=== PATIENT | male | born 1945 | race Caucasian/White ===

== ENCOUNTER 2017-05-26 12:30 | Observation (INO) | payer OTHER, MEDICARE ==
[~2017-05-26] VITALS: Ht 188 cm; Wt 77.1 kg
[~2017-05-26 12:30] MED LIST: ASPIRIN LOW DOS81 M1 PO; ASPIRIN81 M4 PO; ATHENOL325 MG PO; BACLOFEN20 M1 PO; BACLOFEN20 MG PO; COZAAR 100MG T100 MG PO; COZAAR100 M1 PO; ELIQUIS2.5 M1 PO; Eliquis PO; FLOMAX(MONOGRA0.4 MG PO; FLOMAX0.4 M1 PO; LABETALOL HCL100 M1 PO; LABETALOL HYDR100 MG PO; LABETALOL PO; LIPITOR80 M1 PO; Lipitor PO; METHOTREXA50 MG/2 ML PO; METHOTREXATE2.5 M2 PO; NORVASC10 M1 PO; NORVASC5 M1 PO; TRAZODONE HCL150 M1 PO; [UNRECOGNIZED DRUG - OTHER] PO
--- NOTE | 2017-05-26 12:39 | NUR ---
PT TO ROOM7 BIBA FROM HOME FOR EPISODE OF UNRESPONSIVNESS 15MIN WITNESSED BY HIS . ON [facility] ARRIVAL PT WAS AWAKE, HYPOTENSIVE 96/54, BG 280. ON ARRIVAL TO ER PT AAOx2, VSS, OFFERING NO COMPLAINTS. EKG -NSR 60'S. HX OF CVA WITH R SIDDED DEFICIT, HTN,AORTIC VALVE REPLACEMENT,CHOL.
[2017-05-26] MEDS ORDERED: AMLODIPINE BESYL5 M1 PO (12:44)
--- NOTE | 2017-05-26 12:50 | ED AMS/SEIZURE/WEAK/DIZZY ---
History of Present Illness General Chief Complaint: General Adult Stated Complaint: BIBA WEAKNESS Source: patient, family, old records Exam Limitations: no limitations Vital Signs & Intake/Output Vital Signs & Intake/Output Vital Signs Date Time Temp Pulse Resp B/P B/P Pulse O2 O2 Flow FiO2 Mean Ox Delivery Rate 05/26 1744 97.9 59 20 168/98 93 Room Air 05/26 1625 97.7 74 16 159/75 05/26 1508 97.0 71 16 134/74 95 Room Air 05/26 1259 95 Room Air 05/26 1237 97.1 60 18 108/62 95 Room Air Allergies Coded Allergies: NO KNOWN ALLERGIES (02/27/16) Reconcile Medications Acetaminophen (Athenol) 325 MG TABLET 2 TAB PO BID PAIN (Reported) Amlodipine Besylate 5 MG TABLET 1 TAB PO DAILY HTN (Reported) Apixaban (Eliquis) 2.5 MG TABLET 1 TAB PO BID BLOOD THINNER (Reported) Aspirin (Aspirin*) 81 MG TAB.CHEW 1 TAB PO DAILY HEART/BLOOD (Reported) Atorvastatin Calcium (Lipitor) 80 MG TABLET 1 TAB PO QPM CHOLESTEROL ( Reported) Baclofen 20 MG TABLET 1 TAB PO TID MUSCLE SPASMS (Reported) Labetalol HCl 100 MG TABLET 1 TAB PO BID HTN (Reported) Losartan (Cozaar) 100 MG TABLET 1 TAB PO DAILY HTN (Reported) Methotrexate 2.5 MG TABLET 3 TAB PO QWED MS (Reported) Tamsulosin HCl (Flomax) 0.4 MG CAP.ER.24H 1 CAP PO DAILY PROSTATE (Reported) Trazodone HCl 150 MG TABLET 1 TAB PO QPM SLEEP (Reported) Triage Note: PT TO ROOM7 BIBA FROM HOME FOR EPISODE OF UNRESPONSIVNESS 15MIN WITNESSED BY HIS . ON [facility] ARRIVAL PT WAS AWAKE, HYPOTENSIVE 96/54, BG 280. ON ARRIVAL TO ER PT AAOx2, VSS, OFFERING NO COMPLAINTS. EKG -NSR 60'S. HX OF CVA WITH R SIDDED DEFICIT, HTN,AORTIC VALVE REPLACEMENT,CHOL. Triage Nurses Notes Reviewed? yes Onset: Abrupt Duration: hour(s): (1), better, gone now Timing: single episode today Injury Environment: home Severity: mild, moderate No Modifying Factors: none HPI: 72-year-old male with a history of CVA, multiple sclerosis, DVT on, aortic valve replacement and hypertension presents for evaluation after an episode of unresponsiveness. Patient's reports that patient was sitting at a wheelchair when all of a sudden he began breathing heavy, drooling, and nasal discharge. reports that she repeatedly tried to arouse the patient but he remained unresponsive for 15 minutes. She called 911 and EMS reports that patient was also unresponsive for another 15 minutes. His blood pressure was 96 /50 but he is breathing normally blood sugar was normal. The Patient Got to the ER He Was Awake and Responsive and Not Offering Any Complaints. He Reports He Feels Totally Normal. Patient Has Right-Sided Weakness from a CVA at Baseline and Feels As Though This Is Unchanged. reports he has been behaving normally and his right-sided weakness appears unchanged. Patient denies any chest pain, shortness of breath, abdominal pain, headaches, changes in vision, fatigue, worsening weakness, previous similar episodes, new medications, fevers, or any other associated symptoms. he currently reports he feels well. (AARON ALEXANDER PA-C) Past History Travel History Traveled to [place] past 21 day No Medical History Neurological: CVA, multiple sclerosis EENT: NONE Cardiovascular: hypertension, paroxysmal aflutter AVR 2010 Respiratory: NONE Gastrointestinal: NONE Hepatic: NONE Renal: benign prost hyperplasia Musculoskeletal: NONE Psychiatric: NONE Endocrine: NONE Blood Disorders: DVT ON ELIQUIS Cancer(s): NONE PAEDIATRICIAN/Reproductive: NONE History of MRSA: No History of VRE: No History of CDIFF: No Surgical History Surgical History: aortic valve replacement 2009 Psychosocial History Who do you live with [address]10 What is your primary language Hungarian Tobacco Use: Never used Family History Family History, If Any: FATHER Valvular heart disease Relation not specified for: *No pertinent family history (AARON ALEXANDER PA-C) Medical History Any Pertinent Medical History? see below for history Family History Hx Contributory? No (MARIA DEL CARMEN MARIE DO) Review of Systems Review of Systems Constitutional: Reports: no symptoms. EENTM: Reports: no symptoms. Respiratory: Reports: no symptoms. Cardiovascular: Reports: no symptoms. GI: Reports: no symptoms. Genitourinary: Reports: no symptoms. Musculoskeletal: Reports: no symptoms. Skin: Reports: no symptoms. Neurological/Psychological: Reports: no symptoms. Hematologic/Endocrine: Reports: no symptoms. Immunologic/Allergic: Reports: no symptoms. All Other Systems: Reviewed and Negative (AARON ALEXANDER PA-C) Physical Exam Physical Exam General Appearance: well developed/nourished, no apparent distress, alert, awake , comfortable Head: atraumatic, normal appearance Eyes: Bilateral: normal appearance, PERRL, EOMI. Ears, Nose, Throat: normal pharynx, normal ENT inspection, hearing grossly normal Neck: normal inspection, supple, full range of motion Respiratory: normal breath sounds, chest non-tender, no respiratory distress, lungs clear Cardiovascular: regular rate/rhythm, normal peripheral pulses Peripheral Pulses: 2+ dorsalis pedis (R), 2+ dorsalis pedis (L) Gastrointestinal: normal bowel sounds, soft, non-tender Back: normal inspection, normal range of motion, no vertebral tenderness Extremities: limited range of motion (RT UPPER AND LOWER AT BASELINE) Neurologic/Psych: awake, alert, oriented x 3, normal mood/affect, abnormal gait (RT HEMIPARESIS), motor weakness (RIGHT SIDE BASELINE) Reflexes: 2+: knee (R), knee (L). Skin: intact, normal color, warm/dry Lymphatic: no anterior cervical ryley Comments: Patient has right-sided hemiparesis at baseline. This is unchanged since the events of today. Core Measures ACS in differential dx? Yes ASA ordered for poss ACS? No-ACS ruled out CVA/TIA Diagnosis: No NIH Stroke Scale: Total 7 Date Last Known Well: 05/26/17 Time Last Known Well: 1200 Neurological S/S of CVA: Right Hemiparesis (baseline) Comment: Patient has right sided weakness at baseline due to previous CVA. This does not appear to be worse than his baseline. Severe Sepsis Present: No Septic Shock Present: No Bedside Dysphagia Screen Bedside Swallow Eval Done: Yes (pt has a gag reflex) Result of Evaluation: Pass (CATHERINE JACOME,AARON) Progress Differential Diagnosis: arrythmia, anemia, benign positional vertigo, CVA/stroke , dehydration, electrolyte imbalance, hypoglycemia, intracranial Hem., intracranial mass/tumor, labrynthitis, Meniere's disease, postural hypotension, presyncope, post-traumatic vertigo, sepsis, seizure disorder, subarachnoid Hem., vertebrobasilar insuff, AORTIC VALVE INSUFFICIENCY, AORTIC STENOSIS Plan of Care: Orders Procedure Date/time Status MRI-HEAD W & W/O AARON 05/27 600 Active CBC WITHOUT DIFFERENTIAL 06/26 0600 Active BASIC ELECTROLYTES PLUS BUN&CR 05/27 0600 Active TROPONIN LEVEL 05/27 0100 Active EKG 05/27 0100 Active Heart Healthy Diet 05/26 D Active TROPONIN LEVEL 05/26 1900 Active EKG 05/26 1900 Active LACTIC ACID 05/26 1547 Complete Pathway - chart 05/26 1536 Active House Staff 05/26 1536 Active Patient Data 05/26 1536 Active Code Status 05/26 1536 Active Patient Data 05/[address] in observation 05/26 1517 Active ED Holding Orders 05/26 1517 Active Vital Signs 05/26 1517 Active Code Status 05/26 1517 Complete Intake & Output 05/26 1319 Active Add-on Test (ER Only) 05/26 1303 Active Telemetry/Community Development Specialist 05/26 1302 Active URINALYSIS 05/26 1302 Active MAGNESIUM 05/26 1257 Complete D-DIMER 05/26 1257 Complete CREATINE PHOSPHOKINASE 05/26 1257 Complete B-TYPE NATRIURETIC PEP (BNP) 05/26 1257 Complete TROPONIN LEVEL 05/26 1247 Complete PARTIAL THROMBOPLASTIN TIME 05/26 1247 Complete PROTHROMBIN TIME 05/26 1247 Complete LACTIC ACID 05/26 1247 Complete COMPREHENSIVE METABOLIC PANEL 05/26 1247 Complete CBC WITHOUT DIFFERENTIAL 05/26 1247 Complete EKG 05/26 1232 Active VTE Mechanical Prophylaxis 05/26 UNK Active Telemetry/Community Development Specialist 05/26 UNK Active Current Medications Sig/Victor M Start time Last Medication Dose Stop Time Status Admin Methotrexate 7.5 MG QWED 05/29 0700 AC (Methotrexate 2.5MG Tab) Amlodipine Besylate 5 MG DAILY 05/27 1000 AC (Norvasc) Aspirin 81 MG DAILY 05/27 1000 AC (Aspirin) Losartan Potassium 100 MG DAILY 05/27 1000 AC (Cozaar) Tamsulosin HCl 0.4 MG DAILY 05/27 1000 AC (Flomax) Apixaban 2.5 MG BID 05/26 220 AC (Eliquis) Atorvastatin Calcium 80 MG QPM 05/26 2200 AC (Lipitor) Baclofen 20 MG TID 05/26 2200 AC (Lioresal 10MG Tablet) Labetalol HCl 100 MG BID 05/26 2200 AC (Trandate) Trazodone HCl 150 MG TID 05/26 2200 UNVr (Desyrel) Acetaminophen 325 MG Q6P PRN 05/26 1545 AC (Tylenol) Morphine Sulfate 1 MG Q4 PRN 05/26 1545 AC (Morphine) Oxycodone HCl 5 MG Q6 PRN 05/26 1545 AC (Roxicodone) Laboratory Tests 05/26/17 1902: Troponin I Pending 05/26/17 1505: Lactic Acid 1.6 05/26/17 1303: Magnesium Cancelled, Creatine Kinase Cancelled, [id number]-Z-[id number] Pept Cancelled , D-Dimer High Sensitivty Cancelled 05/26/17 1257: Anion Gap 10, Estimated GFR > 60, BUN/Creatinine Ratio 18.8, Glucose 197 H, Lactic Acid 2.5 H, Calcium 9.0, Magnesium 2.0, Total Bilirubin 0.8, AST 17, ALT 23, Alkaline Phosphatase 37, Creatine Kinase 111, Troponin I < 0.01, Pro-B- Natriuretic Pept 1350 H, Total Protein 6.5, Albumin 3.7, Globulin 2.8, Albumin/ Globulin Ratio 1.3, PT 13.6 H, INR 1.30 H, APTT 32, D-Dimer High Sensitivty < 200, CBC w Diff NO MAN DIFF REQ, RBC 4.22 L, MCV 99.0 H, MCH 32.9 H, RDW 13.2 , MPV 8.2, Gran % 79.1 H, Lymphocytes % 9.0 L, Monocytes % 9.6 H, Eosinophils % 1.7, Basophils % 0.6, Absolute Granulocytes 7.4 H, Absolute Lymphocytes 0.8 L, Absolute Monocytes 0.9 H, Absolute Eosinophils 0.2, Absolute Basophils 0.1, PUBS MCHC 33.2 1:32 PM: Patient will be evaluated for possible syncopal episode where he was unresponsive for 15-30 minutes. We'll get basic blood work including troponin and BNP d-dimer. Chest x-ray and a CT scan of the brain. 2:47 PM: Lactic acid was elevated to 2.5. he was given a 250 mL normal saline bolus and lactic acid and rechecked. CT scan of brain is within normal limits. Remaining blood work is unchanged from previous. Due to possible syncopal event with unresponsiveness and the patient's history regarding further inpatient observation for further evaluation. He'll require cardiology consultation, telemetry monitoring, serial labs, echocardiogram, MRI of the brain. Talked with Dr. Gross who is the on-call community outreach coordinator and he will consult while he was admitted. We'll page the hospitalist to bring patient in for an observation period (AARON ALEXANDER PA-C) Diagnostic Imaging: Viewed by Me: Radiology Read, CT Scan. Initial ED EKG: SINUS RHYTHM, MULTIPLE PREMATURE COMP[LEXES VENTRICULAR AND SUPRAVENT, LEFT ATRIAL ABN Comments: PATIENT: ABELINO BRADLEY PRESENT AGE: 72 PATIENT ACCOUNT NO: [id number] : 43 LOCATION: [facility] ORDERING PHYSICIAN: AARON ALEXANDER PA-C SERVICE DATE: 05/26/17 EXAM TYPE: CAT - CT HEAD WO IV CONTRAST EXAMINATION: CT HEAD WITHOUT CONTRAST CLINICAL INFORMATION: Syncope. Unresponsive for 30 minutes. COMPARISON: Previous PET/CT scan most recent August 2016 TECHNIQUE: Contiguous axial imaging was performed from the skull base to vertex without intravenous administration of contrast. DLP: 803 mGy-cm FINDINGS: There is no evidence of an extra-axial collection. There is no evidence of intra or extra-axial hemorrhage. The ventricles and extra-axial CSF spaces are prominent suggestive of generalized atrophy. There is nonspecific periventricular white matter disease. There is an old right occipital parietal infarct that is unchanged. There may be old small basal ganglial and right cerebellar infarcts are also unchanged. No mass, mass effect or acute infarct is seen. Review of bone windows is unremarkable. IMPRESSION: No acute findings. Old right occipital parietal infarct, mild generalized atrophy and periventricular white matter disease. DICTATED BY: MARTIN MCCALL MD DATE/TIME DICTATED:05/26/171328 MOTION PICTURE FILM EXAMINER:FRANCO DATE/TIME TRANSCRIBED:05/26/171328 CONFIDENTIAL, DO NOT COPY WITHOUT APPROPRIATE AUTHORIZATION. <Electronically signed in Other Vendor System> SIGNED BY: MARTIN MCCALL MD. PATIENT: ABELINO BRADLEY PRESENT AGE: 72 PATIENT ACCOUNT NO: [id number] : 43 LOCATION: [facility] ORDERING PHYSICIAN: AARON ALEXANDER PA-C SERVICE DATE: 05/26/17 EXAM TYPE: RAD - XRY-PORTABLE CHEST XRAY EXAMINATION: CHEST 1 VIEW CLINICAL INFORMATION: Syncope. COMPARISON: 05/06/2016. TECHNIQUE: An AP view of the chest is provided. FINDINGS: The cardiac silhouette is not enlarged. Intact midline sternal wires are present. The mediastinal and hilar contours are unremarkable. There are neither pleural effusions nor pneumothoraces. There are no consolidations. The osseous structures are unremarkable. IMPRESSION: No evidence for acute disease. DICTATED BY: PHILIPPE ALLEN MD DATE/TIME DICTATED:05/26/171333 MOTION PICTURE FILM EXAMINER:FRANCO DATE/TIME TRANSCRIBED:05/26/171333 CONFIDENTIAL, DO NOT COPY WITHOUT APPROPRIATE AUTHORIZATION. <Electronically signed in Other Vendor System> SIGNED BY: PHILIPPE ALLEN MD 05/26/17 1342 (AARON ALEXANDER PA-C) Departure Departure Disposition: STILL A PATIENT Condition: Stable Clinical Impression Primary Impression: Syncope Qualifiers: Syncope type: unspecified Qualified Code: R55 - Syncope and collapse Referrals: LYNETTE CUTLER MD (PCP/Family) Departure Forms: Customer Survey General Discharge Information Admission Note Spoke With: CLIFF JACINTO MD Documentation of Exam: Documentation of any treatments & extenuating circumstances including Concerns Regarding Discharge (functional status, medication knowledge or non-compliance, living conditions, etc.) that warrant an admission rather than observation: [ Patient requires further evaluation of a syncopal event. He will require telemetry monitoring, echocardiogram, cardiology consult, serial labs, MRI of the brain, physical therapy consult, gentle hydration, neurology consult, and monitoring for any additional events. (AARON ALEXANDER PA-C) Observation Note Spoke With: CLIFF JACINTO MD Physician Advisor Notified: MARIA DEL CARMEN MARIE DO Place Patient In: Non-ED OBS Care Area Rationale for Observation: My rational for observation is as follows [PATIENT NEEDS SERIAL TROPONINS, CARDIOLOGY CONSULT, MRI]. PA/BANKING CONSULTANT Co-Sign Statement Statement: ED Attending supervision documentation- [X] I saw and evaluated the patient. I have also reviewed all the pertinent lab results and diagnostic results. I agree with the findings and the plan of care as documented in the PA's/BANKING CONSULTANT's documentation. [] I have reviewed the ED Record and agree with the PA's/BANKING CONSULTANT's documentation. [] Additions or exceptions (if any) to the PAs/BANKING CONSULTANT's note and plan are summarized below: [] (MARIA DEL CARMEN MARIE DO)
--- NOTE | 2017-05-26 12:55 | NUR ---
YULIANA ALEXANDER AT BEDSIDE FOR PT EVAL.
--- NOTE | 2017-05-26 12:58 | NUR ---
BLOOD DRAWN AND SENT TO LAB-SST,LAV,BLUE,[facility],PINK
[2017-05-26 13:13] LABS: ABSOLUTE BASOPHIL COUNT 0.1 /CUMM (0.0-0.2); ABSOLUTE EOSINOPHIL COUNT 0.2 /CUMM (0.0-0.7); ABSOLUTE GRANULOCYTE CT 7.4 /CUMM (1.4-6.5); ABSOLUTE LYMPH COUNT 0.8 /CUMM (1.2-3.4); ABSOLUTE MONOCYTE COUNT 0.9 /CUMM (0.10-0.60); BASOPHIL % 0.6 % (0.0-2.0); EOSINOPHIL % 1.7 % (0-5); GRANULOCYTE % 79.1 % (42.2-75.2); HEMATOCRIT 41.8 % (42-52); MEAN CORPUSCULAR HGB 32.9 PG (27.0-31.0); MEAN CORPUSCULAR HGB CONC 33.2 G/DL (33.0-37.0); MEAN PLATELET VOLUME 8.2 FL (7.4-10.4); PLATELET COUNT 257 /CUMM (130-400); RBC DISTRIBUTION WIDTH 13.2 % (11.5-14.5); RED BLOOD CELL CT 4.22 /CUMM (4.70-6.10); WHITE BLOOD CELL COUNT 9.4 /CUMM (4.8-10.8)
--- NOTE | 2017-05-26 13:19 | NUR ---
PT TO AND FROM CAT SCAN BY STRETCHER.
[2017-05-26 13:22] LABS: PT 13.6 SEC (9.4-12.5); PTT 32 SEC (25-37)
--- NOTE | 2017-05-26 13:36 | NUR ---
CRITICAL TEST RESULTS [id number] ABELINO BRADLEY 72 M TESTS AND RESULTS: LACTIC ACID 2.5 Results received and read back by: UCHE BLACKMON Results received date and time: 05/26/17 1337 The following provider was notified of the results, and read the results back: YULIANA ALEXANDER Notified date and time: 05/26/17 at 1337
--- NOTE | 2017-05-26 13:37 | CT SCAN REPORT ---
EXAMINATION: CT HEAD WITHOUT CONTRAST CLINICAL INFORMATION: Syncope. Unresponsive for 30 minutes. COMPARISON: Previous PET/CT scan most recent August 2016 TECHNIQUE: Contiguous axial imaging was performed from the skull base to vertex without intravenous administration of contrast. DLP: 803 mGy-cm FINDINGS: There is no evidence of an extra-axial collection. There is no evidence of intra or extra-axial hemorrhage. The ventricles and extra-axial CSF spaces are prominent suggestive of generalized atrophy. There is nonspecific periventricular white matter disease. There is an old right occipital parietal infarct that is unchanged. There may be old small basal ganglial and right cerebellar infarcts are also unchanged. No mass, mass effect or acute infarct is seen. Review of bone windows is unremarkable. IMPRESSION: No acute findings. Old right occipital parietal infarct, mild generalized atrophy and periventricular white matter disease.
--- NOTE | 2017-05-26 13:41 | NUR ---
JUANITA [phone] PLEASE CALL WHEN PT NEEDS RIDE HOME
--- NOTE | 2017-05-26 13:42 | RADIOLOGY REPORT ---
EXAMINATION: CHEST 1 VIEW CLINICAL INFORMATION: Syncope. COMPARISON: 05/06/2016. TECHNIQUE: An AP view of the chest is provided. FINDINGS: The cardiac silhouette is not enlarged. Intact midline sternal wires are present. The mediastinal and hilar contours are unremarkable. There are neither pleural effusions nor pneumothoraces. There are no consolidations. The osseous structures are unremarkable. IMPRESSION: No evidence for acute disease.
--- NOTE | 2017-05-26 14:17 | NUR ---
NS INFUSING PER EMAR.
--- NOTE | 2017-05-26 15:06 | NUR ---
LACTIC ACID TUBE DRAWN AND SENT TO LAB.
--- NOTE | 2017-05-26 15:29 | NUR ---
PT GOING TO ROOM 174-1.
--- NOTE | 2017-05-26 15:58 | NUR ---
REETUP. AT BEDSIDE FOR PT EVAL.
--- NOTE | 2017-05-26 16:17 | History & Physical ---
EMILY DAWN 05/26/17 1617: General Information and HPI MD Statement: I have seen and personally examined ABELINO BRADLEY and documented this H&P. The patient is a 72 year old M who presented with a patient stated chief complaint of [syncope]. 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 Most of the history is provided by patient's ex-(who is his current caregiver). She reports that around 11 AM this morning patient appeared to be very drowsy and lethargic sitting in his wheelchair and had drooling of saliva from his mouth. When she tried to wake him up, he was completely unresponsive with labored breathing. He looked pale and sick and therefore she called 911. She did not notice any seizure-like activity, tongue biting, bowel or bladder incontinence. When the EMS arrived, her blood pressure was about 96/50 but his breathing had improved. Blood sugar was normal. Patient was back to baseline in about half an hour. No new deficits other than the right-sided weakness which is baseline. He was talking normally and denied any chest pain, shortness of breath, abdominal pain, headache, dizziness, changes in vision, fevers, chills, nausea, vomiting. He was eventually brought to the hospital for evaluation. In the ED vitals showed a temperature of 97.1, pulse 60, respiration 18, blood pressure 98/62, saturating 95% on room air. Labs showed H&H of 13.9/41.8, normal chemistries, glucose 197, lactic acid 2.5( which improved to 1.6 after 1 L fluid bolus), proBNP 1350, Troponins negative. EKG showed normal sinus rhythm, heart rate of 64 bpm, left atrial abnormality, biphasic P waves. Head CT No acute findings. Old right occipital parietal infarct, mild generalized atrophy and periventricular white matter disease. CXR:No evidence for acute disease. Allergies/Medications Allergies: Coded Allergies: NO KNOWN ALLERGIES (02/27/16) Home Med list Acetaminophen (Athenol) 325 MG TABLET 2 TAB PO BID PAIN (Reported) Amlodipine Besylate 5 MG TABLET 1 TAB PO DAILY HTN (Reported) Apixaban (Eliquis) 2.5 MG TABLET 1 TAB PO BID BLOOD THINNER (Reported) Aspirin (Aspirin*) 81 MG TAB.CHEW 1 TAB PO DAILY HEART/BLOOD (Reported) Atorvastatin Calcium (Lipitor) 80 MG TABLET 1 TAB PO QPM CHOLESTEROL ( Reported) Baclofen 20 MG TABLET 1 TAB PO TID MUSCLE SPASMS (Reported) Labetalol HCl 100 MG TABLET 1 TAB PO BID HTN (Reported) Losartan (Cozaar) 100 MG TABLET 1 TAB PO DAILY HTN (Reported) Methotrexate 2.5 MG TABLET 3 TAB PO QWED MS (Reported) Tamsulosin HCl (Flomax) 0.4 MG CAP.ER.24H 1 CAP PO DAILY PROSTATE (Reported) Trazodone HCl 150 MG TABLET 1 TAB PO QPM SLEEP (Reported) Observation Initial Note - I have personally examined ABELINO BRADLEY on 05/27/17 at 1425. The disposition of ABELINO BRADLEY is uncertain at this time and before a determination can be made, he requires a period of observation for the following reasons NEUROLOGY EVALUATION, OVERNIGHT TELEMETRY MONITORING AND POSSIBLE MRI Past History Travel History Traveled to [place] past 21 day No Medical History Neurological: CVA, multiple sclerosis EENT: NONE Cardiovascular: hypertension, paroxysmal aflutter AVR 2010 Respiratory: NONE Gastrointestinal: NONE Hepatic: NONE Renal: benign prost hyperplasia Musculoskeletal: NONE Psychiatric: NONE Endocrine: NONE Blood Disorders: DVT ON ELIQUIS Cancer(s): NONE REHAB AIDE/Reproductive: NONE History of MRSA: No History of VRE: No History of CDIFF: No Surgical History Surgical History: aortic valve replacement 2010 Past Family/Social History Family History Relations & Conditions if any FATHER Valvular heart disease Relation not specified for: *No pertinent family history Psychosocial History Primary Language: Moroccan Functional Ability Ambulation: non-ambulatory, wheelchair bound but is able to transfer by himself Review of Systems Review of Systems Constitutional: Reports: malaise, weakness. EENTM: Reports: no symptoms. Cardiovascular: Reports: no symptoms. Respiratory: Reports: no symptoms. GI: Reports: no symptoms. Genitourinary: Reports: no symptoms. Musculoskeletal: Reports: no symptoms. Skin: Reports: no symptoms. Neurological/Psychological: Reports: no symptoms. Exam & Diagnostic Data Last 24 Hrs of Vital Signs/I&O Vital Signs Date Time Temp Pulse Resp B/P B/P Pulse O2 O2 Flow FiO2 Mean Ox Delivery Rate 05/26 1625 97.7 74 16 159/75 05/26 1508 97.0 71 16 134/74 95 Room Air 05/26 1259 95 Room Air 05/26 1237 97.1 60 18 108/62 95 Room Air Intake & Output 05/26 1600 05/26 0800 05/26 0000 Intake Total Output Total Balance Patient 79.379 kg Weight Weight Reported by Patient Measurement Method Physical Exam General Appearance Alert, Oriented X3, Cooperative, No Acute Distress Skin No Rashes, No Breakdown, No Significant Lesion, sternotomy scar at midline Skin Temp/Moisture Exam: Warm/Dry Sepsis Skin Exam (color): Normal for Ethnicity HEENT Atraumatic, PERRLA, EOMI, Mucous Membr. moist/pink Neck Supple, No JVD Lymphatic Cervical nl Cardiovascular Normal S1, Normal S2, 2/6 systolic murmur Lungs Clear to Auscultation, Normal Air Movement Abdomen Normal Bowel Sounds, Soft Neurological wheelchair bound, power 2/5 in RUE AND RLE. 4/5 IN LUE AND LLE., FOOTDROP IN RIGHT FOOT, UPGOING TOES BILATERALLY Extremities No Cyanosis, No Edema, Normal Pulses Last 24 Hrs of Labs/Jesus: Laboratory Tests 05/26/17 1505: Lactic Acid 1.6 05/26/17 1303: Magnesium Cancelled, Creatine Kinase Cancelled, [id number]-[id number]-Giukwueyfuy Pept Cancelled , D-Dimer High Sensitivty Cancelled 05/26/17 1257: Anion Gap 10, Estimated GFR > 60, BUN/Creatinine Ratio 18.8, Glucose 197 H, Lactic Acid 2.5 H, Calcium 9.0, Magnesium 2.0, Total Bilirubin 0.8, AST 17, ALT 23, Alkaline Phosphatase 37, Creatine Kinase 111, Troponin I < 0.01, Pro-B- Natriuretic Pept 1350 H, Total Protein 6.5, Albumin 3.7, Globulin 2.8, Albumin/ Globulin Ratio 1.3, PT 13.6 H, INR 1.30 H, APTT 32, D-Dimer High Sensitivty < 200, CBC w Diff NO MAN DIFF REQ, RBC 4.22 L, MCV 99.0 H, MCH 32.9 H, RDW 13.2 , MPV 8.2, Gran % 79.1 H, Lymphocytes % 9.0 L, Monocytes % 9.6 H, Eosinophils % 1.7, Basophils % 0.6, Absolute Granulocytes 7.4 H, Absolute Lymphocytes 0.8 L, Absolute Monocytes 0.9 H, Absolute Eosinophils 0.2, Absolute Basophils 0.1, PUBS MCHC 33.2 Assessment/Plan Assessment: Patient is a 72-year-old male with past medical history of 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 In the ED vitals showed a temperature of 97.1, pulse 60, respiration 18, blood pressure 98/62, saturating 95% on room air. Labs showed H&H of 13.9/41.8, normal chemistries, glucose 197, lactic acid 2.5( which improved to 1.6 after 1 L fluid bolus), proBNP 1350, Troponins negative. EKG showed normal sinus rhythm, heart rate of 64 bpm, left atrial abnormality, biphasic P waves. Head CT: No acute findings. Old right occipital parietal infarct, mild generalized atrophy and periventricular white matter disease. CXR:No evidence for acute disease. Echo in January 2016: Stage I diastolic dysfunction, EF more than 60%, moderate LVH. RV pressure 35-40 mm Carotid Doppler in May 2016: No hemodynamically stenosis on the right. Minimal non hemodynamically significant stenosis of the proximal left internal carotid artery corresponding to a 0-49% Assessment * Syncopal episode, seizure versus TIA * Rule out arrhythmias * CVA with right-sided hemiparesis * MS on baclofen and methotrexate * Aortic valve replacement on Eliquis * History of DVTs on Eliquis * Hypertension Plan * Placed in observation on telemetry to closely monitor for arrhythmias * 3 sets of troponin and EKG to rule out ACS * Cardiology consult with Dr. Gross placed * No need to repeat echo at this time * MRI of the head * Neurology consult * Carotid Doppler report from 2016 was negative no need to repeat it. * Antihypertensive medications losartan, amlodipine and metoprolol has been resumed. * Continue baclofen and methotrexate for MS and Flomax for BPH * Patient passed bedside swallow, resume regular diet. * DVT prophylaxis Eliquis * Full code As Ranked By This Provider Problem List: 1. Hemiparesis 2. Multiple sclerosis 3. Syncopal episodes 4. Spasm 5. Replacement of aortic valve Core Measures/Miscellaneous Acute Coronary Syndrome ACS Diagnosis: No Cerebrovascular Accident CVA/TIA Diagnosis: Yes Date Last Known Well: 05/26/17 Time Last Known Well: 1200 Neurological S/S of CVA: Right Hemiparesis (baseline) Bedside Swallow Eval Done: Yes (pt has a gag reflex) Result of Evaluation: Pass Congestive Heart Failure CHF Diagnosis: No VTE (View Protocol) VTE Risk Factors: Age > 40, Immobility, paresis No [facility] VTE prophylaxis d/t: No contraindications No VTE Pharm Prophylaxis d/t: No contraindications VTE Diagnosis: No VTE Type: NONE VTE Confirmed by (Test): NONE Sepsis (View Protocol) Severe Sepsis Present: No Septic Shock Septic Shock Present: No Miscellaneous Documentation Attending Case Discussed With: ESTHELA ZUNIGA,FEDE Alfonso Primary Care Physician: LYNETTE CUTLER MD Patient sees these Specialists dr padilla Level of Patient Care: Telemetry CLIFF JACINTO 05/26/17 1617: Attending MD Review Statement Attending Statement Attending MD Statement: examined this patient, discuss w/resident/PA/STEAM SHOVEL OILER, agreed w/resident/PA/STEAM SHOVEL OILER, discussed with family, reviewed EMR data (avail), discussed with nursing, discussed with case mgmt, reviewed images, amended to note Attending Assessment/Plan: ASSESSMENT 1. Syncope r/o seizure vs TIA 2. h/o stroke 2014 with resdiual wekaness on right side 3. MS controlled with baclofen and methotrexate 4. AVR 5. DVT on eliquis 6. htn PLAN admit to tele , serial cardiac enzymes and ekg, cardio and neuro consult, MRI brain, passed bedside swallow, asa, statin. recent USG carotid negative, echo with normal EF, resume home meds. patient back to baseline gi/dvt prophyalxis full code. plan of care d/wed patient/caregiver bedside in ER.
--- NOTE | 2017-05-26 16:32 | NUR ---
REPORT GIVEN TO ANA TURNER TO TELE
[2017-05-26 17:44] VITALS: BP 168/98
[2017-05-26 23:42] VITALS: BP 174/102
--- NOTE | 2017-05-27 07:22 | PN-Observation ---
LISA ZUNIGA,SINA 05/27/17 0722: Observation Note Observation Note _ I have personally examined ABELINO BRADLEY. him disposition is uncertain at this time. Before a determination can be made, he requires continued observation for the following reasons: * Neurology Consult * MRI Brain * Cardiology consult * Echocardiogram Assessment/Plan Assessment: 72 year old man with multiple medical problems significant for CVA with residual rided sided deficits, multiple sclerosis, Paroxsysmal Atrial Fibrillation on Eliquis, and Aortic stenosis s/p bioprosthetic valve replaced brought in by ambulance for evaluation after an episode of unresponsiveness at home. #History of CVA with right sided deficits #History of Parox. Atrial Fibrillation #History of multiple sclerosis Patient with multiple medical problems and history of present illness suggestive of syncope. Patient has multiple previous evaluations for similar reasons. Patients was reportedly hypotensive in the field, but had grossly normal vitals signs during the observation stay. Labs were only remarkable for an elevated lactic acid that quickly improved without any other signs suggestive of sepsis. CT head was negative for acute intracranial pathology. Cardiology consult and echocardiogram placed; patient was discontinued from labetalol and amlodipine was increased to 10mg per day. Echocardiogram was remarkable only for increased left ventricular outflow velocity. Patient is to follow up with baling press operator Dr. Gross in one week for further evaluation of hypertension. MRI brain demonstrated multiple chronic findings without any acute intracranial pathology. Neurologist Dr. Salazar did not feel any acute LABOR CONTRACTOR event was occuring. -Discharge to home -Amlodipine increased to 10mg per day -Labetalol held -Continue Methotrexate/Baclofen -Continue Eliquis/Aspirin/Statin -Cardiology/Neurology consults -Outpatient evaluation for hypertension Pain Plan-Acetaminophen/Oxycodone/Morphine Diet-Heart Healthy Diet DVT PPx-ALPS Code Status-FULL CODE Problem List: 1. Syncope Qualifiers Syncope type: unspecified Qualified Code: R55 - Syncope and collapse Subjective Follow-up For: Syncope Tele-Events Since Last Visit: Sinus Bradycardia HR 61-79 PACs Subjective: Patient seen and examined. He is seen lying flat in bed resting comfortably. He appears to be in no acute distress. He reports feeling well and denies any further episodes of 'passing out'. He does not recall specific details as to what made him fall to the floor. He does admit to mild constipation. Additionally he denies any headache, blurred/double vision, fever, chills, chest pain, palpitations, shortness of breath, nausea, vomiting, diarrhea. Review of Systems Constitutional: Reports: see HPI. Objective Last 24 Hrs of Vital Signs/I&O Vital Signs Date Time Temp Pulse Resp B/P B/P Pulse O2 O2 Flow FiO2 Mean Ox Delivery Rate 05/27 2038 90 138/86 05/27 1618 97.6 71 20 154/90 94 Room Air 05/27 0907 75 130/62 05/27 0907 75 130/62 05/27 0907 75 130/62 05/27 0907 75 130/62 05/27 0906 75 130/62 05/27 0818 97.4 60 20 156/90 92 Room Air 05/27 0000 Room Air 05/26 2342 97.9 61 20 174/102 96 Room Air Intake & Output 05/27 1600 05/27 0800 05/27 0000 Intake Total 400 610 Output Total Balance 400 610 Intake, IV 10 Intake, Oral 400 600 Number 1 1 Bowel Movements Patient 77.111 kg Weight Weight Reported by Patient Measurement Method Physical Exam General Appearance: Alert, Cooperative, No Acute Distress Other Physical Findings: General- well devleoped, thin elderly man in no acute distress HEENT- NCAT, PERRL, EOMI, moist mucous membranes Chest- S1, S2 w/o m/g/r; RRR Lung- CTA bilaterally Abdomen- Soft, nontender, nondistended, bowel sounds intact Neuro- Awake and alert, oriented to person/place, obvious right sided residual deficit Ext- normal pulses. no cyanosis/clubbing/edema Current Medications: Current Medications Sig/Victor M Start time Last Medication Dose Route Stop Time Status Admin Acetaminophen 325 MG Q6P PRN 05/26 1545 DCD PO Amlodipine Besylate 5 MG DAILY 05/27 1000 DCD 05/27 PO 906 Apixaban 2.5 MG BID 05/26 2200 DCD 05/27 PO 2034 Aspirin 81 MG DAILY 05/27 1000 DCD 05/27 PO 09 Atorvastatin Calcium 80 MG QPM 05/26 2200 DCD 05/27 PO 2033 Baclofen 20 MG TID 05/260 DCD 05/27 PO 2033 Labetalol HCl 100 MG BID 05/26 2200 DCD 05/27 PO 2037 Losartan Potassium 100 MG DAILY 05/27 1000 DCD 05/27 PO 0907 Methotrexate 7.5 MG QWED 05/29 0700 DCD PO Morphine Sulfate 1 MG Q4 PRN 05/26 1545 DCD IV Oxycodone HCl 5 MG Q6 PRN 05/26 1545 DCD PO Tamsulosin HCl 0.4 MG DAILY 05/27 1000 DCD 05/27 PO 0907 Trazodone HCl 150 MG AT BEDTIME 05/26 2200 DCD 05/27 PO 2034 Last 24 Hrs of Labs/Mics: Laboratory Tests 05/27/17725: Anion Gap 7, Estimated GFR > 60, BUN/Creatinine Ratio 20.0, CBC w Diff NO MAN DIFF REQ, RBC 4.01 L, MCV 98.7 H, MCH 33.0 H, RDW 12.9, MPV 8.1, Gran % 72.8, Lymphocytes % 13.2 L, Monocytes % 10.6 H, Eosinophils % 3.0, Basophils % 0.4, Absolute Granulocytes 6.3, Absolute Lymphocytes 1.1 L, Absolute Monocytes 0.9 H, Absolute Eosinophils 0.3, Absolute Basophils 0, PUBS MCHC 33.5 05/27/17 0100: Troponin I < 0.01 ESTHELA ZUNIGA,FEDE 05/27/17 1437: Observation Note Observation Note _ I have personally examined BLANCAAnn MarieABELINO. him disposition is uncertain at this time. Before a determination can be made, he requires continued observation for the following reasons . 72-year-old male with a past medical history of multiple sclerosis on baclofen and methotrexate, bioprosthetic aortic valve, DVT on Eliquis, hypertension and an old CVA in 2014 with residual right-sided weakness. He was brought in after he had an observed period of unresponsiveness with some drooling and EMS checked his pressure in the field which was 96/54. When he came in he had a mild lactic acidosis of 2.6 that resolved very quickly to 1.5. Chest x-ray was negative, there was no white count and no obvious sign of infection. He was continued on all of his usual medications an MRI obtained today shows chronic infarcts and chronic demyelinating changes but no acute infarct. The whole etiology of this transient episode is unclear and the plan is to get an echocardiogram today which will follow-up with cardiology. We're observing him to make sure he doesn 't have any more such episodes and will also talk to cardiology about the ideal blood pressure regimen on discharge given the transient episode of hypotension in the field.
[2017-05-27 08:18] VITALS: BP 156/90
[2017-05-27 08:38] LABS: ABSOLUTE BASOPHIL COUNT 0 /CUMM (0.0-0.2); ABSOLUTE EOSINOPHIL COUNT 0.3 /CUMM (0.0-0.7); ABSOLUTE GRANULOCYTE CT 6.3 /CUMM (1.4-6.5); ABSOLUTE LYMPH COUNT 1.1 /CUMM (1.2-3.4); ABSOLUTE MONOCYTE COUNT 0.9 /CUMM (0.10-0.60); BASOPHIL % 0.4 % (0.0-2.0); GRANULOCYTE % 72.8 % (42.2-75.2); HEMATOCRIT 39.6 % (42-52); MEAN CORPUSCULAR HGB CONC 33.5 G/DL (33.0-37.0); MEAN CORPUSCULAR VOLUME 98.7 FL (80.0-94.0); MEAN PLATELET VOLUME 8.1 FL (7.4-10.4); PLATELET COUNT 255 /CUMM (130-400); RBC DISTRIBUTION WIDTH 12.9 % (11.5-14.5); RED BLOOD CELL CT 4.01 /CUMM (4.70-6.10); WHITE BLOOD CELL COUNT 8.7 /CUMM (4.8-10.8)
[2017-05-27 09:06] VITALS: BP 130/62
--- NOTE | 2017-05-27 10:43 | NUR ---
Physical therapy: Orders for PT eval and treat received, chart review. Spoke with patient and family member who report patient is wheelchair bound at baseline and patient transfers with total assist of one or with josie lift at home. No skilled PT needs identified at this time and PT will not be following patient. Recommend nursing staff use mechanical lift for all OOB transfers and recommend home PT evaluation for ROM. Thank you.
--- NOTE | 2017-05-27 12:07 | MRI REPORT ---
EXAMINATION: MR BRAIN WITHOUT AND WITH CONTRAST CLINICAL INFORMATION: Unresponsiveness. Assess for stroke. History of multiple sclerosis. COMPARISON: CT scan of the head 05/26/2017. TECHNIQUE: MRI of the brain was obtained using routine sequences before and after the intravenous administration of 10 mL of Gadavist. Images are severely degraded by patient motion artifact on multiple sequences. FINDINGS: No diffusion abnormalities are identified to suggest an acute or subacute infarct. No mass effect or midline shift is seen. The ventricles and sulci are slightly commensurately prominent consistent with mild diffuse volume loss. There is an area of old infarction in the right occipital lobe with areas of gliosis and encephalomalacia. There are extensive areas of increased T2 signal in the periventricular and subcortical white matter. Some of them appear perpendicular to the corpus callosum, and some demonstrate intrinsically low T1 signal. These may be consistent with chronic microvascular ischemic change, or sequelae of demyelination given the patient's history. There is an area of a chronic infarct in the right occipital lobe, and there are basal ganglia, right thalamic and right cerebellar lacunar infarcts. There may be a small arachnoid cyst in the anterior left middle cranial fossa. On postcontrast imaging, there is no abnormal parenchymal or leptomeningeal enhancement. No pathologic magnetic susceptibility artifact is identified on the gradient refocused acquisition. The craniovertebral junction, marrow signal, and midline structures are normal. The major intracranial flow-voids at the level of the [place] are preserved. The dural venous sinus flow-voids are maintained. The mastoid air cells are well-aerated. There is mucoperiosteal thickening in the bilateral ethmoid sinuses. IMPRESSION: 1. There are no acute bleeds or infarcts. There are no masses or areas of abnormal enhancement. 2. There are changes consistent with mild diffuse volume loss. 3. There are extensive white matter changes which may be consistent with chronic microvascular ischemic changes versus demyelination in the correct clinical setting. 4. There are sequelae of chronic lacunar infarcts as described above. 5. Multiple sequences are severely degraded by patient motion artifact.
--- NOTE | 2017-05-27 12:35 | Cons- Neurology ---
General Information and HPI Consulting Request Date of Consult: 05/27/17 Requested By: ESTHELA ZUNIGA,FEDE Alfonso History of Present Illness: 72-year-old white male with history of cerebrovascular disease and multiple sclerosis, maintained on baclofen and methotrexate who was admitted after a brief period of drowsiness and lethargy. History is obtained both from the patient and the chart. Apparently his caregiver had difficulty arousing him yesterday. He appeared to be drooling. There was reported labored breathing and pallor. No seizure activity was witnessed. He came around within approximately one half hour. The patient denies any recent, intercurrent medical illness. He has had no recent fever. CAT scan of the brain on admission showed no acute abnormalities. MRI as well showed no acute findings. There was evidence of an old right occipital infarct, chronic lacunes and extensive periventricular and subcortical white matter abnormalities consistent with demyelination. There was mild leukocytosis and relative hypotension upon admission. Allergies/Medications Allergies: Coded Allergies: NO KNOWN ALLERGIES (02/27/16) Home Med List: Acetaminophen (Athenol) 325 MG TABLET 2 TAB PO BID PAIN (Reported) Amlodipine Besylate 5 MG TABLET 1 TAB PO DAILY HTN (Reported) Apixaban (Eliquis) 2.5 MG TABLET 1 TAB PO BID BLOOD THINNER (Reported) Aspirin (Aspirin*) 81 MG TAB.CHEW 1 TAB PO DAILY HEART/BLOOD (Reported) Atorvastatin Calcium (Lipitor) 80 MG TABLET 1 TAB PO QPM CHOLESTEROL ( Reported) Baclofen 20 MG TABLET 1 TAB PO TID MUSCLE SPASMS (Reported) Labetalol HCl 100 MG TABLET 1 TAB PO BID HTN (Reported) Losartan (Cozaar) 100 MG TABLET 1 TAB PO DAILY HTN (Reported) Methotrexate 2.5 MG TABLET 3 TAB PO QWED MS (Reported) Tamsulosin HCl (Flomax) 0.4 MG CAP.ER.24H 1 CAP PO DAILY PROSTATE (Reported) Trazodone HCl 150 MG TABLET 1 TAB PO QPM SLEEP (Reported) Review of Systems Review of Systems: Chronic right-sided weakness and gait impairment. 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 Home Services at Home: Nursing Primary Language: [place] Citizen Smoking Status: Never Smoked Functional Ability Ambulation: non-ambulatory, wheelchair bound but is able to transfer by himself Exam & Diagnostic Data Vital Signs and I&O Vital Signs Date Time Temp Pulse Resp B/P B/P Pulse O2 O2 Flow FiO2 Mean Ox Delivery Rate 05/27 0907 75 130/62 05/27 0907 75 130/62 05/27 0907 75 130/62 05/27 0907 75 130/62 05/27 0906 75 130/62 05/27 0818 97.4 60 20 156/90 92 Room Air 05/27 0000 Room Air 05/26 2342 97.9 61 20 174/102 96 Room Air 05/26 2041 82 170/100 05/26 1744 97.9 59 20 168/98 93 Room Air 05/26 1625 97.7 74 16 159/75 05/26 1508 97.0 71 16 134/74 95 Room Air 05/26 1259 95 Room Air 05/26 1237 97.1 60 18 108/62 95 Room Air Intake & Output 05/27 1600 05/27 0800 05/27 0000 Intake Total 400 610 Output Total Balance 400 610 Intake, IV 10 Intake, Oral 400 600 Number 1 Bowel Movements Patient 170 lb Weight Weight Reported by Patient Measurement Method Elderly white male, awake, alert and in no acute distress. Speech was fluent. The head was normocephalic and atraumatic. Pupils were equal and reactive. Extraocular movements were full. There was no nystagmus. The face was symmetric. Hearing was grossly normal. The motor examination showed a right hemiparesis. Deep tendon reflexes were symmetric. Plantar responses were withdrawal. Sensory examination was normal to light touch. Gait was untested. Assessment/Plan Assessment: #1 transient lethargy and altered mental status of uncertain etiology. Apart from what appears to be chronic right hemiparesthesias, his presentation is notable for reported, relative hypotension and leukocytosis which has resolved. Early infection/sepsis should be ruled out. #2 chronic multiple sclerosis maintained on baclofen and methotrexate #3 known cerebrovascular disease, paroxysmal atrial flutter and prior DVT. 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 History would not reflect seizure. Recommendations: Would continue current treatment with Eliquis, baclofen and methotrexate. No further neurodiagnostic studies are anticipated. Internal medicine/cardiology should review antihypertensive medications going forward. Please feel free to call with any further questions. Consult Acknowledgment - Thank you for your consult request.
--- NOTE | 2017-05-27 13:28 | Patient Discharge Instructions ---
Discharge Instructions General Discharge Information Special Instructions: Your dose of amlodipine has changed, start taking 10mg each day. A new prescription has been sent to your pharmacy. Stop taking Labetalol. Follow up with Dr. Gross in on week of discharge for further evaluation of your blood pressure. Acute Coronary Syndrome Inclusion Criteria At DC or during hospital stay patient has or had the following: ACS DIAGNOSIS No Discharge Core Measures Meds if any: Prescribed or Continued at Discharge Meds if any: NOT Prescribed or Continued at Discharge Congestive Heart Failure Inclusion Criteria At DC or during hospital stay patient has or had the following: CHF DIAGNOSIS No Discharge Core Measures Meds if any: Prescribed or Continued at Discharge Meds if any: NOT Prescribed or Continued at Discharge Cerebrovascular accident Inclusion Criteria At DC or during hospital stay patient has or had the following: CVA/TIA Diagnosis Yes Discharge Core Measures Meds if any: Prescribed or Continued at Discharge Meds if any: NOT Prescribed or Continued at Discharge Venous thromboembolism Inclusion Criteria VTE Diagnosis No VTE Type NONE VTE Confirmed by (Test) NONE Discharge Core Measures - Per Current guidelines, there needs to be overlap - treatment for the first 5 days of Warfarin therapy. - If discharged on Warfarin prior to 5 days of - overlap therapy, the patient will need to be - assessed for post discharge needs including - *Post discharge parental anticoagulation - *Warfarin and/or parental anticoagulation education - *Follow up date to check INR post discharge At least 5 days overlap therapy as Inpatient No Meds if any: Prescribed or Continued at Discharge Note: Overlap Therapy is Warfarin and Anticoagulant Meds if any: NOT Prescribed or Continued at Discharge
--- NOTE | 2017-05-27 13:46 | Cons- Cardiology ---
General Information and HPI Consulting Request Date of Consult: 05/27/17 Requested By: FEDE PROCTOR MD Reason for Consult: Suspected TIA. Source of Information: old records Exam Limitations: unable to give history, clinical condition History of Present Illness: Mr. 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 ANALYST occipital lobe stroke with new defecits that included transient confusion and a left homonymous hemianopsia, modestly elevated troponin I's felt secondary to demand ischemia, and a paroxysm of atrial flutter for which he was hospitalized here (02/25-03/02/2016) and started on the factor X a inhibitor Eliquis (apixaban), given his significantly elevated [id number] score who was last hospitalized here for an episode of unresponsiveness (05/06- 05/08/2016) ultimately felt secondary to bradycardic-induced syncope who again presents following prolonged (approximately one half hour) episode of decreased responsiveness. In the ED a head CT revealed no acute abnormalities. Likewise an MRI of the brain revealed no acute findings. There was evidence of an old right occipital infarct, chronic lacunes and extensive periventricular and subcortical white matter abnormalities consistent with demyelination, as per neurology. presented to the ED on 05/06/2016 after he was found to be "cold, clammy, unresponsive to verbal stimuli, and responsive only to sternal rub" at his ECF with a HR with bradycardia to the 40s, a BP 104/60, and a respiratory rate 12. After approximately 15 minutes he awoke, and was talkative, but also agitated and combative. Allergies/Medications Allergies: Coded Allergies: NO KNOWN ALLERGIES (02/27/16) Home Med List: Acetaminophen (Athenol) 325 MG TABLET 2 TAB PO BID PAIN (Reported) Amlodipine Besylate 5 MG TABLET 1 TAB PO DAILY HTN (Reported) Amlodipine Besylate 10 MG TABLET 1 TAB PO DAILY HYPERTENSION Apixaban (Eliquis) 2.5 MG TABLET 1 TAB PO BID BLOOD THINNER (Reported) Aspirin (Aspirin*) 81 MG TAB.CHEW 1 TAB PO DAILY HEART/BLOOD (Reported) Atorvastatin Calcium (Lipitor) 80 MG TABLET 1 TAB PO QPM CHOLESTEROL ( Reported) Baclofen 20 MG TABLET 1 TAB PO TID MUSCLE SPASMS (Reported) Labetalol HCl 100 MG TABLET 1 TAB PO BID HTN (Reported) Losartan (Cozaar) 100 MG TABLET 1 TAB PO DAILY HTN (Reported) Methotrexate 2.5 MG TABLET 3 TAB PO QWED MS (Reported) Tamsulosin HCl (Flomax) 0.4 MG CAP.ER.24H 1 CAP PO DAILY PROSTATE (Reported) Trazodone HCl 150 MG TABLET 1 TAB PO QPM SLEEP (Reported) Review of Systems Review of Systems: A 14 point system review was attempted, but was unobtainable given the patient's clinical status Past History Travel History Traveled to [place] past 21 day No Medical History Neurological: CVA, multiple sclerosis EENT: NONE Cardiovascular: hypertension, paroxysmal aflutter AVR 2009 Respiratory: NONE Gastrointestinal: NONE Hepatic: NONE Renal: benign prost hyperplasia Musculoskeletal: NONE Psychiatric: NONE Endocrine: NONE Blood Disorders: DVT ON ELIQUIS Cancer(s): 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 Home Services at Home: Nursing Primary Language: Far[place]ese Smoking Status: Never Smoked Functional Ability Ambulation: non-ambulatory, wheelchair bound but is able to transfer by himself Exam & Diagnostic Data Vital Signs and I&O Vital Signs Date Time Temp Pulse Resp B/P B/P Pulse O2 O2 Flow FiO2 Mean Ox Delivery Rate 05/27 1618 97.6 71 20 154/90 94 Room Air 05/27 0907 75 130/62 05/27 0907 75 130/62 05/27 0907 75 130/62 05/27 0907 75 130/62 05/27 0906 75 130/62 05/27 0818 97.4 60 20 156/90 92 Room Air 05/27 0000 Room Air 05/26 2342 97.9 61 20 174/102 96 Room Air 05/26 2041 82 170/100 05/26 1744 97.9 59 20 168/98 93 Room Air Intake & Output 05/27 1600 05/27 0800 05/27 0000 05/26 1600 05/26 0800 06/25 0000 Intake Total 400 610 Output Total Balance 400 610 Intake, IV 10 Intake, Oral 400 600 Number 1 Bowel Movements Patient 170 lb 175 lb Weight Weight Reported by Patient Reported by Patient Measurement Method Physical Exam: Well-developed, well-nourished elderly male stress. Vital signs: See above. HEENT: Normocephalic, atraumatic, EOMI, slightly jaundiced membranes. Neck: No JVD, no bruits. Lungs: Clear to auscultation bilaterally. Heart: S1, S2 with grade 2/6 systolic murmur best heard in the base. Abdomen: Soft, nontender, positive bowel sounds. Extremities: No edema. Labs/Jesus Results: Laboratory Tests 05/27 05/27 05/26 05/26 0726 0100 1902 1505 Chemistry Sodium (137 - 145 mmol/L) 139 Potassium (3.5 - 5.1 mmol/L) 3.7 Chloride (98 - 107 mmol/L) 102 Carbon Dioxide (22 - 30 mmol/L) 30 Anion Gap (5 - 16) 7 BUN (9 - 20 mg/dL) 16 Creatinine (0.7 - 1.2 mg/dL) 0.8 Estimated GFR (>60 ml/min) > 60 BUN/Creatinine Ratio (7 - 25 %) 20.0 Lactic Acid (0.7 - 2.1 mmol/L) 1.6 Troponin I (<0.11 ng/ml) < 0.01 < 0.01 Hematology CBC w Diff NO MAN DIFF REQ WBC (4.8 - 10.8 /CUMM) 8.7 RBC (4.70 - 6.10 /CUMM) 4.01 L Hgb (14.0 - 18.0 G/DL) 13.3 L Hct (42 - 52 %) 39.6 L MCV (80.0 - 94.0 FL) 98.7 H MCH (27.0 - 31.0 PG) 33.0 H RDW (11.5 - 14.5 %) 12.9 Plt Count (130 - 400 /CUMM) 255 MPV (7.4 - 10.4 FL) 8.1 Gran % (42.2 - 75.2 %) 72.8 Lymphocytes % (20.5 - 51.1 %) 13.2 L Monocytes % (1.7 - 9.3 %) 10.6 H Eosinophils % (0 - 5 %) 3.0 Basophils % (0.0 - 2.0 %) 0.4 Absolute Granulocytes (1.4 - 6.5 /CUMM) 6.3 Absolute Lymphocytes (1.2 - 3.4 /CUMM) 1.1 L Absolute Monocytes (0.10 - 0.60 /CUMM) 0.9 H Absolute Eosinophils (0.0 - 0.7 /CUMM) 0.3 Absolute Basophils (0.0 - 0.2 /CUMM) 0 PUBS MCHC (33.0 - 37.0 G/DL) 33.5 0605/26 1303 1302 1257 Chemistry Sodium (137 - 145 mmol/L) 136 L Potassium (3.5 - 5.1 mmol/L) 3.7 Chloride (98 - 107 mmol/L) 99 Carbon Dioxide (22 - 30 mmol/L) 27 Anion Gap (5 - 16) 10 BUN (9 - 20 mg/dL) 15 Creatinine (0.7 - 1.2 mg/dL) 0.8 Estimated GFR (>60 ml/min) > 60 BUN/Creatinine Ratio (7 - 25 %) 18.8 Glucose (65 - 99 mg/dL) 197 H Lactic Acid (0.7 - 2.1 mmol/L) 2.5 H Calcium (8.4 - 10.2 mg/dL) 9.0 Magnesium (1.6 - 2.3 mg/dL) Cancelled 2.0 Total Bilirubin (0.2 - 1.3 mg/dL) 0.8 AST (17 - 59 U/L) 17 ALT (21 - 72 U/L) 23 Alkaline Phosphatase (< 127 U/L) 37 Creatine Kinase (55 - 170 U/L) Cancelled 111 Troponin I (<0.11 ng/ml) < 0.01 [id number] Pept (<125 pg/mL) Cancelled 1350 H Total Protein (6.3 - 8.2 g/dL) 6.5 Albumin (3.5 - 5.0 g/dL) 3.7 Globulin (1.9 - 4.2 gm/dL) 2.8 Albumin/Globulin Ratio (1.1 - 2.2 %) 1.3 Coagulation PT (9.4 - 12.5 SEC) 13.6 H INR (0.90 - 1.17) 1.30 H APTT (25 - 37 SEC) 32 D-Dimer High Sensitivty (0 - 243 ng/ml) Cancelled < 200 Hematology CBC w Diff NO MAN DIFF REQ WBC (4.8 - 10.8 /CUMM) 9.4 RBC (4.70 - 6.10 /CUMM) 4.22 L Hgb (14.0 - 18.0 G/DL) 13.9 L Hct (42 - 52 %) 41.8 L MCV (80.0 - 94.0 FL) 99.0 H MCH (27.0 - 31.0 PG) 32.9 H RDW (11.5 - 14.5 %) 13.2 Plt Count (130 - 400 /CUMM) 257 MPV (7.4 - 10.4 FL) 8.2 Gran % (42.2 - 75.2 %) 79.1 H Lymphocytes % (20.5 - 51.1 %) 9.0 L Monocytes % (1.7 - 9.3 %) 9.6 H Eosinophils % (0 - 5 %) 1.7 Basophils % (0.0 - 2.0 %) 0.6 Absolute Granulocytes (1.4 - 6.5 /CUMM) 7.4 H Absolute Lymphocytes (1.2 - 3.4 /CUMM) 0.8 L Absolute Monocytes (0.10 - 0.60 /CUMM) 0.9 H Absolute Eosinophils (0.0 - 0.7 /CUMM) 0.2 Absolute Basophils (0.0 - 0.2 /CUMM) 0.1 PUBS MCHC (33.0 - 37.0 G/DL) 33.2 Urines Urine Color Cancelled Urine Clarity Cancelled Urine pH Cancelled Ur Specific [place] Cancelled Urine Protein Cancelled Urine Ketones Cancelled Urine Nitrite Cancelled Urine Bilirubin Cancelled Urine Urobilinogen Cancelled Ur Leukocyte Esterase Cancelled Ur Microscopic Cancelled Urine Hemoglobin Cancelled Urine Glucose Cancelled Diagnostic Data EKG Results (05/27/2017): Sinus rhythm, multiple APCs, and consider left atrial abnormality. Minor changes when compared to previous tracing performed on 05/26/2017. CXR Results (05/26/2017): No acute cardiopulmonary process. Other Results Head MRI (05/27/2017): 1. There are no acute bleeds or infarcts. There are no masses or areas of abnormal enhancement. 2. There are changes consistent with mild diffuse volume loss. 3. There are extensive white matter changes which may be consistent with chronic microvascular ischemic changes versus demyelination in the correct clinical setting. 4. There are sequelae of chronic lacunar infarcts as described above. 5. Multiple sequences are severely degraded by patient motion artifact. Head CT (05/26/2017): No acute findings. Old right occipital parietal infarct, mild generalized atrophy and periventricular white matter disease. 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 ARCHITECTURE ANALYST occipital lobe stroke with new defecits that included transient confusion and a left homonymous hemianopsia, modestly elevated troponin I's felt secondary to demand ischemia, and a paroxysm of atrial flutter for which he was hospitalized here (02/25-03/02/2016) and started on the factor X a inhibitor Eliquis (apixaban), given his significantly elevated [id number] score who was last hospitalized here for an episode of unresponsiveness (05/06-05/08/2016) ultimately felt secondary to bradycardia induced syncope who again presents following prolonged (approximately one half hour) episode of decreased responsiveness of uncertain etiology, but who is again on beta radha therapy ( labetalol). He is also taking baclofen and trazodone, both of which can also rarely cause bradycardia. Recommendations: * Telemetry admission, follow-up troponins, follow-up electrocardiograms. * Scheduled for echocardiogram to reassess his overall left ventricular systolic function and his bioprosthetic aortic valve to exclude significant stenosis. * While we have no proof that Mr. Kwan was again bradycardic, it would be reasonable to discontinue beta radha therapy or any other medications that slow the heart rate, since we do not have many other likely reasons for his nonfocal presentation. * Consider discontinuing baclofen and trazodone which can also rarely cause bradycardia. * Check free T4, TSH, and glycosylated hemoglobin A1c. * Replete potassium. * Continue DVT prophylaxis. Consult Acknowledgment - Thank you for your consult request.
[2017-05-27] MEDS ORDERED: AMLODIPINE BESY10 M1 PO (15:47)
[2017-05-27 16:18] VITALS: BP 154/90
--- NOTE | 2017-05-27 19:46 | ECHOCARDIOGRAM REPORT ---
ABELINO BRADLEY Age: 72 : 1945 Gender: M Exam Date: 05/27/2017 17:10 Exam Location: [facility] Ht (in): 74 Wt (lb): 170 BSA: 2.00 BP: 130 / 62 Ordering Physician: ROBBY ROBERTS MD Referring Physician: Abdi Gross MD Technologist: Mara Mcdermott [facility] Room Number: 171 Indications: PRESYNCOPE/SYNCOPE Rhythm: Sinus Technical Quality: Poor FINDINGS Left Ventricle Normal size left ventricle. Mild concentric left ventricular hypertrophy. No obvious regional wall motion abnormalities. Normal left ventricular ejection fraction visually estimated at >65%. Mildly increased left ventricular outflow tract velocity (1.4 m/s). Abnormal relaxation filling pattern of the left ventricle for age (stage 1 diastolic dysfunction). Right Ventricle Normal right ventricular size and function. Right Atrium Right atrium not well visualized. Left Atrium Moderate left atrial dilatation. Mitral Valve Moderate to marked mitral annular calcification. Mitral valve is moderately thickened with adequate leaflet excursion. No mitral regurgitation. Aortic Valve Bioprosthetic aortic valve. Gradient recorded across the prosthetic aortic valve within the expected range. No aortic regurgitation. Tricuspid Valve Structurally normal tricuspid valve. Trace tricuspid regurgitation. Right ventricular systolic pressure estimated at 32 mmHg. Pulmonic Valve Pulmonic valve not well visualized, grossly normal. No pulmonic regurgitation. Pericardium No pericardial effusion. Great Vessels Normal size aortic root. CONCLUSIONS Normal size left ventricle. Mild concentric left ventricular hypertrophy. Normal left ventricular ejection fraction visually estimated at > 65%. Mildly increased left ventricular outflow tract velocity (1.4 m/s). Abnormal relaxation filling pattern of the left ventricle for age (stage 1 diastolic dysfunction). Normal right ventricular size and function. Right atrium not well visualized. Moderate left atrial dilatation. Gradient recorded across the prosthetic aortic valve within the expected range. Trace tricuspid regurgitation. Abdi Gross M.D. (Electronically Signed) Final Date: 27 May 2017 19:45 MEASUREMENTS (Male / Female) Normal Values 2D ECHO LV Diastolic Diameter PLAX 4.0 cm 4.2 - 5.9 / 3.9 - 5.3 cm LV Systolic Diameter PLAX 2.3 cm 2.1 - 4.0 cm LV Fractional Shortening PLAX 42.5 % 25 - 46 % LV Ejection Fraction 2D Teich 74.1 % IVS Diastolic Thickness 1.3 cm LVPW Diastolic Thickness 1.2 cm LV Relative Wall Thickness 0.6 RV Internal Dim ED PLAX 2.9 cm 1.9 - 3.8 cm LVOT Diameter 1.8 cm Aortic Root Diameter 2.6 cm LA Systolic Diameter LX 4.2 cm 3.0 - 4.0 / 2.7 - 3.8 cm LA Volume 66.0 cm 18 - 58 / 22 - 52 cm DOPPLER AV Peak Velocity 222.0 cm/s AV Peak Gradient 19.7 mmHg AV Mean Velocity 148.0 cm/s AV Mean Gradient 10.0 mmHg AV Velocity Time Integral 48.7 cm LVOT Peak Velocity 139.0 cm/s LVOT Peak Gradient 7.7 mmHg LVOT Mean Velocity 98.9 cm/s LVOT Mean Gradient 4.0 mmHg LVOT Velocity Time Integral 33.3 cm LVOT Stroke Volume 84.7 cm AV Area Cont Eq vti 1.7 cm AV Area Cont Eq pk 1.6 cm MV Peak Velocity 151.0 cm/s MV Peak Gradient 9.1 mmHg MV Mean Velocity 78.7 cm/s MV Mean Gradient 3.0 mmHg Mitral E Point Velocity 91.3 cm/s Mitral A Point Velocity 134.0 cm/s Mitral E to A Ratio 0.7 MV PHT Velocity 105.0 cm/s MV Deceleration Mchenry 351.0 cm/s MV Pressure Half Time 89.7 ms MV Area PHT 2.5 cm MV Deceleration Time 293.0 ms TR Peak Velocity 258.0 cm/s TR Peak Gradient 26.6 mmHg Right Atrial Pressure 5.0 mmHg Pulmonary Artery Systolic Pressu 31.6 mmHg Right Ventricular Systolic Press 31.6 mmHg PV Peak Velocity 74.4 cm/s PV Peak Gradient 2.2 mmHg PV Mean Velocity 52.3 cm/s PV Mean Gradient 1.0 mmHg PV Velocity Time Integral 17.8 cm LV E' Lateral Velocity 7.7 cm/s Mitral E to LV E' Lateral Ratio 11.9 LV E' Septal Velocity 5.7 cm/s Mitral E to LV E' Septal Ratio 16.2
[2017-05-27 20:38] VITALS: BP 138/86
== END 2017-05-27 20:55 | disposition home health service (06) ==
LOC: ERH 12:30 → ERHI 15:17 → 1NO 15:17 → ENRESERV 15:28 → ENTRNSPT 16:34 → 1NO 16:57 → CMPTRNSPT 17:15 → 1NO 19:40
PROVIDERS: Emergency Medicine; Student in an Organized Health Care Education/Training Program; ADMIT Internal Medicine
DX: R41.82 Altered mental status, unspecified (principal); I10 Essential (primary) hypertension; G35 Multiple sclerosis; Z86.718 Personal history of other venous thrombosis and embolism; Z79.01 Long term (current) use of anticoagulants; I35.0 Nonrheumatic aortic (valve) stenosis; I69.351 Hemiplegia and hemiparesis following cerebral infarction affecting right dominant side; D72.829 Elevated white blood cell count, unspecified; I95.9 Hypotension, unspecified; R53.83 Other fatigue; I48.92 Unspecified atrial flutter; Z95.2 Presence of prosthetic heart valve; N40.0 Benign prostatic hyperplasia without lower urinary tract symptoms
CPT/HCPCS: 70552; 36415; 70553; 82436; 93005; 93010; 93306; A9579; G0378; J3490; J7040

== ENCOUNTER 2018-01-12 14:01 | Inpatient (IN) | payer OTHER ==
[~2018-01-12] VITALS: Ht 188 cm; Wt 78.6 kg
[~2018-01-12 14:01] MED LIST changes: +AMLODIPINE BESY10 M1 PO; +AMLODIPINE BESYL5 M1 PO
--- NOTE | 2018-01-12 14:10 | ED SYNCOPE COMPLAINT ---
History of Present Illness General Chief Complaint: Syncope and Near-Syncope Stated Complaint: BIBA FOR SYNCOPE Allergies Coded Allergies: NO KNOWN ALLERGIES (02/27/16) Reconcile Medications Acetaminophen (Athenol) 325 MG TABLET 2 TAB PO BID PAIN (Reported) Amlodipine Besylate 10 MG TABLET 1 TAB PO DAILY HYPERTENSION Apixaban (Eliquis) 2.5 MG TABLET 1 TAB PO BID BLOOD THINNER (Reported) Aspirin (Aspirin*) 81 MG TAB.CHEW 1 TAB PO DAILY HEART/BLOOD (Reported) Atorvastatin Calcium (Lipitor) 80 MG TABLET 1 TAB PO QPM CHOLESTEROL ( Reported) Baclofen 20 MG TABLET 1 TAB PO TID MUSCLE SPASMS (Reported) Losartan (Cozaar) 100 MG TABLET 1 TAB PO DAILY HTN (Reported) Methotrexate 2.5 MG TABLET 3 TAB PO QWED MS (Reported) Tamsulosin HCl (Flomax) 0.4 MG CAP.ER.24H 1 CAP PO DAILY PROSTATE (Reported) Trazodone HCl 150 MG TABLET 1 TAB PO QPM SLEEP (Reported) Past History Travel History Traveled to [place] past 21 day No Medical History Neurological: CVA, multiple sclerosis EENT: NONE Cardiovascular: hypertension, paroxysmal aflutter AVR 2009 Respiratory: NONE Gastrointestinal: NONE Hepatic: NONE Renal: benign prost hyperplasia Musculoskeletal: NONE Psychiatric: NONE Endocrine: NONE Blood Disorders: DVT ON ELIQUIS 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 History of MRSA: No History of VRE: No History of CDIFF: No Surgical History Surgical History: aortic valve replacement 2009 Psychosocial History Who do you live with [facility] Nursing What is your primary language [place] Islander Family History Family History, If Any: FATHER Valvular heart disease Relation not specified for: *No pertinent family history Progress Plan of Care: Orders Procedure Date/time Status EKG 01/12 1403 Active Departure Departure Condition: Stable Referrals: Derrick ZUNIGA,John Dasilva (PCP/Family) Departure Forms: Customer Survey General Discharge Information
--- NOTE | 2018-01-12 14:18 | ED SYNCOPE COMPLAINT ---
History of Present Illness General Chief Complaint: Syncope and Near-Syncope Stated Complaint: BIBA FOR SYNCOPE Source: old records, EMS Exam Limitations: confusion Vital Signs & Intake/Output Vital Signs & Intake/Output Vital Signs Date Time Temp Pulse Resp B/P B/P Pulse O2 O2 Flow FiO2 Mean Ox Delivery Rate 01/17 0926 90 140/90 01/17 0926 90 140/90 01/17 0925 90 140/90 01/17 0659 99.7 98 20 140/92 91 Room Air 01/16 2245 98.6 100 18 122/72 92 Room Air 01/16 1641 98.7 85 18 118/80 95 Room Air ED Intake and Output 01/17 0000 01/16 1200 Intake Total 280 157.6 Output Total Balance 280 157.6 Intake, IV 40 157.6 Intake, Oral 240 Number 2 Bowel Movements Allergies Coded Allergies: NO KNOWN ALLERGIES (02/27/16) Reconcile Medications Acetaminophen (Athenol) 325 MG TABLET 1 TAB PO BID PAIN (Reported) Amlodipine Besylate 10 MG TABLET 1 TAB PO DAILY HYPERTENSION Apixaban (Eliquis) 2.5 MG TABLET 1 TAB PO BID BLOOD THINNER (Reported) Aspirin (Aspirin*) 81 MG TAB.CHEW 1 TAB PO DAILY HEART/BLOOD (Reported) Baclofen 20 MG TABLET 1 TAB PO TID MUSCLE SPASMS (Reported) Cholecalciferol (Vitamin D3) (Vitamin D) (Unknown Strength) TABLET (Unknown Dose) PO BID SUPPLEMENT (Reported) Folic Acid 1 MG TABLET 1 TAB PO DAILY SUPPLEMENT (Reported) Furosemide (Lasix) 20 MG TABLET 2 TAB PO DAILY DIURETIC (Reported) Losartan (Cozaar) 100 MG TABLET 1 TAB PO DAILY HTN (Reported) Methotrexate 2.5 MG TABLET 5 TAB PO QWED MS (Reported) Potassium Chloride 20 MEQ TAB.ER.PRT 1 TAB PO DAILY SUPPLEMENT (Reported) Tamsulosin HCl (Flomax) 0.4 MG CAP.ER.24H 1 CAP PO DAILY PROSTATE (Reported) Triage Nurses Notes Reviewed? yes Timing: single episode today Precipitating Factors: none Episode Description: UNRESPONSIVE X 40 MINUTES PER Loss of Consciousness: prolonged (minutes) Associated Symptoms: LETHARGY HPI: This is a 72-year-old male with history of previous stroke, MS from home, bedbound/josie lift who presents via EMS for chief complaint of witnessed syncopal episode at home. It is unclear what the circumstances were regarding the syncopal episode. Upon EMS arrival patient was slightly unresponsive. She states that she bagged he became stimulated and then woke up. He had a brief episode of the same again. He was not cyanotic or apneic. Upon arrival patient is awake, alert but confused. He knows his age but is unsure of the date or where he is. He has no complaints of chest pain abdominal pain shortness of breath back pain. He has some chronic right-sided weakness. There is a strong odor of urine, patient incontinent. Per his he was sitting in his wheelchair and was acting himself but then was "out of it" for 40 minutes Past History Travel History Traveled to [place] past 21 day No Medical History Any Pertinent Medical History? 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 No Review of Systems Review of Systems Constitutional: Reports: see HPI (syncope per family). Physical Exam Physical Exam General Appearance: well developed/nourished, alert, awake, mild distress, moderate distress Head: atraumatic, normal appearance Eyes: Bilateral: normal appearance, PERRL, EOMI. Ears, Nose, Throat: normal pharynx Neck: normal inspection, supple, full range of motion, no midline tenderness Respiratory: normal breath sounds, chest non-tender, no respiratory distress Cardiovascular: irregularly irregular Gastrointestinal: normal bowel sounds, soft, non-tender Extremities: NORMAL INSPECTION, MINIMAL MOVEMENT Psychiatric: awake, alert, ORIENTED PER BASELINE AT THIS TIME PER Cranial Nerves: normal hearing, PERRL Coordination/Gait: RIGHT SIDED DEFICIT Core Measures ACS in differential dx? Yes CVA/TIA Diagnosis: No Sepsis Present: No Sepsis Focused Exam Completed? No ED Sepsis Exam Date of Focused Sepsis Exam: 01/12/18 Time of Focused Sepsis Exam: 1506 Sepsis Cardiac Exam: Regular Rate/Rhythm Sepsis Resp Exam: CTA Sepsis Cap Refill Exam: <2 Sec Sepsis Peripheral Pulse Exam: Normal Sepsis Peripheral Pulse Location: Radial Sepsis Skin Color Exam: Normal for Ethnicity Skin Temp/Moisture Exam: Warm/Dry Progress Differential Diagnosis: AMI, aortic dissection, aortic valve, orthostatic syncope, other valvular disease, pulmonary embolus, seizure, sick sinus syndrome , ventricular tach/fib, AFIB RVR Plan of Care: Orders Procedure Date/time Status CBC WITHOUT DIFFERENTIAL 01/17 0600 Complete Heart Healthy Diet 01/16 D Active EKG 01/16 1446 Active Current Medications Sig/Victor M Start time Last Medication Dose Stop Time Status Admin Acetaminophen 650 MG Q4P PRN 01/17 0930 AC 01/17 (Tylenol) 0924 Trazodone HCl 12.5 MG AT BEDTIME 01/15 2200 AC 01/16 (Desyrel) 2020 Risperidone 0.5 MG Q6P PRN 01/15 1400 AC (risperiDONE) Methotrexate 12.5 MG QWED 01/15 0700 AC 01/15 (Methotrexate 2.5MG 0636 Tab) Amlodipine Besylate 10 MG DAILY 01/13 1000 AC 01/17 (Norvasc) 0926 Aspirin 81 MG DAILY 01/13 1000 AC 01/17 (Aspirin) 0925 Folic Acid 1 MG DAILY 01/13 1000 AC 01/17 (Folic Acid) 0926 Furosemide 40 MG DAILY 01/13 1000 AC 01/17 (Lasix) 0926 Losartan Potassium 100 MG DAILY 01/13 1000 AC 01/17 (Cozaar) 0925 Potassium Chloride 20 MEQ DAILY 01/13 1000 AC 01/17 (K-Dur) 0926 Tamsulosin HCl 0.4 MG DAILY 01/13 1000 AC 01/17 (Flomax) 0926 Baclofen 20 MG TID 01/12 2200 AC 01/17 (Lioresal 10MG 0926 Tablet) Laboratory Tests 01/17/18 0626: CBC w Diff NO MAN DIFF REQ, RBC 4.32 L, MCV 100.0 H, MCH 33.2 H, MCHC 33.2, RDW 14.4, MPV 8.5, Gran % 79.0 H, Lymphocytes % 9.9 L, Monocytes % 9.2, Eosinophils % 1.7, Basophils % 0.2, Absolute Granulocytes 9.5 H, Absolute Lymphocytes 1.2, Absolute Monocytes 1.1 H, Absolute Eosinophils 0.2, Absolute Basophils 0 TELE MONITOR, EKG, LABS. PATIENT IS BEDBOUND PER . Diagnostic Imaging: Viewed by Me: Radiology Read. Discussed w/RAD: Radiology Read. CXR Impression: PATIENT: ABELINO BRADLEY PRESENT AGE: 72 PATIENT ACCOUNT NO: [id number] : 43 LOCATION: [facility] ORDERING PHYSICIAN: Riri Ng MD SERVICE DATE: 01/12/18 EXAM TYPE: RAD - XRY-PORTABLE CHEST XRAY EXAMINATION: XR PORTABLE CHEST CLINICAL INFORMATION: Cough, unresponsive episode at home. Concern for pneumonia. COMPARISON: Chest radiograph 05/26/2017. TECHNIQUE: Portable frontal view of the chest was obtained. FINDINGS: Mild elevation of left hemidiaphragm which appears more prominent than prior examination, likely due to mild left basilar atelectasis. The lungs are otherwise clear. No discrete pleural effusion. Cardiomediastinal silhouette and pulmonary vasculature are within normal limits. There is postoperative changes of prior median sternotomy. No acute osseous findings. IMPRESSION: Mild elevation of the left hemidiaphragm, likely due to mild left basilar atelectasis. The lungs are otherwise clear. DICTATED BY: Johnnie Cagle MD DATE/TIME DICTATED:01/12/181640 DELIVERY NURSE:FRANCO DATE/TIME TRANSCRIBED:01/12/181640 CONFIDENTIAL, DO NOT COPY WITHOUT APPROPRIATE AUTHORIZATION. <Electronically signed in Other Vendor System> SIGNED BY: Johnnie Cagle MD 01/12/181645 Initial ED EKG: AFIB (66 BPM) Rhythm Strip: atrial fibrillation Departure Departure Time of Disposition: 1823 Disposition: STILL A PATIENT Condition: Stable Clinical Impression Primary Impression: Syncope and collapse Referrals: Derrick ZUNIGA,John Dasilva (PCP/Family) Departure Forms: Customer Survey General Discharge Information Observation Note Spoke With: Pily Linn MDkayden Physician Advisor Notified: MARIA DEL CARMEN MARIE DO Place Patient In: Non-ED OBS Care Area Rationale for Observation: My rational for observation is as follows [TELE MONITOR, SERIAL EKG/TROPONIN, CARDIOLOGY CONSULTATION DR CONNER, MONITOR I/O, F/U CULTURE RESULTS, MONITOR FOR FEVER].
[2018-01-12] MEDS ORDERED: FOLIC ACID1 M1 PO (15:05)
[2018-01-12] MEDS ORDERED: VITAMIN D1000 UNIT PO (15:07)
[2018-01-12] MEDS ORDERED: LASIX20 M1 PO (15:07)
[2018-01-12] MEDS ORDERED: POTASSIUM CHLO20 ME2 PO (15:09)
[2018-01-12 16:15] LABS: ABSOLUTE BASOPHIL COUNT 0 /CUMM (0.0-0.2); ABSOLUTE EOSINOPHIL COUNT 0.1 /CUMM (0.0-0.7); ABSOLUTE GRANULOCYTE CT 13.8 /CUMM (1.4-6.5); ABSOLUTE LYMPH COUNT 0.9 /CUMM (1.2-3.4); ABSOLUTE MONOCYTE COUNT 1.1 /CUMM (0.10-0.60); BASOPHIL % 0.3 % (0.0-2.0); EOSINOPHIL % 0.8 % (0-5); HEMATOCRIT 45.7 % (42-52); MEAN CORPUSCULAR HGB CONC 32.9 G/DL (33.0-37.0); MEAN CORPUSCULAR VOLUME 100.1 FL (80.0-94.0); PLATELET COUNT 295 /CUMM (130-400); RBC DISTRIBUTION WIDTH 14.6 % (11.5-14.5); RED BLOOD CELL CT 4.57 /CUMM (4.70-6.10); WHITE BLOOD CELL COUNT 15.9 /CUMM (4.8-10.8)
[2018-01-12 16:21] LABS: PT 13.4 SEC (9.4-12.5); PTT 33 SEC (25-37)
[2018-01-12 16:37] LABS: GRANULOCYTE % 86.6 % (42.2-75.2)
--- NOTE | 2018-01-12 16:46 | RADIOLOGY REPORT ---
EXAMINATION: XR PORTABLE CHEST CLINICAL INFORMATION: Cough, unresponsive episode at home. Concern for pneumonia. COMPARISON: Chest radiograph 05/26/2017. TECHNIQUE: Portable frontal view of the chest was obtained. FINDINGS: Mild elevation of left hemidiaphragm which appears more prominent than prior examination, likely due to mild left basilar atelectasis. The lungs are otherwise clear. No discrete pleural effusion. Cardiomediastinal silhouette and pulmonary vasculature are within normal limits. There is postoperative changes of prior median sternotomy. No acute osseous findings. IMPRESSION: Mild elevation of the left hemidiaphragm, likely due to mild left basilar atelectasis. The lungs are otherwise clear.
--- NOTE | 2018-01-12 20:02 | History & Physical ---
Bob Esparza MD 01/12/182001: General Information and HPI History of Present Illness: Mr. 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 Gross who was last hospitalized here for an episode of unresponsiveness (05/27/2017) ultimately felt secondary to bradycardic-induced syncope who again presents following prolonged (approximately 45 minutes) episode of decreased responsiveness. Per the patient's ex-, Aniya, the patient felt totally fine and was acting normally this morning. He was eating well and conversing. The patient then fell asleep while sitting in a wheelchair watching TV around noon. His thought that he was just taking a nap at the time. 45 minutes later, she thought that he had been sleeping for a long time and wanted to check in on him. She found him unarousable with no radial or carotid pulse. His was a nurse but she questioned whether he actually was pulseless. She did think she saw some shallow breathing. She activated EMS and lied the patient down with the help of neighbors. While lying down, the patient started to arouse. EMS came and provided supplemental O2 and he continued to improve. Over the course of the next several hours, his thinks that the patient returned to baseline. She does note that he had a mild cold last week but did not take any medications. She also notes that he had a mild left hand tremor that was transient all receiving O2. There were no other signs of seizure activity. According to the patient, he confirms the history and adds that he did not have any prodrome or feelings of presyncope before falling asleep. He says that he was watching TV and then woke up on the floor. He then fell back asleep and does not remember the ambulance ride but woke up in the hospital. He was feeling fatigued at the time but now feels good. He has not had any recent medication changes. He does not have any chest pain, shortness of breath, palpitations, lightheadedness, dizziness, or other symptoms. He is a former smoker and does not use alcohol or recreational drugs. 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 Home Who Do You Live With? self Services at Home: Nursing Primary Language: Bel[place] Smoking Status: Former Smoker ETOH Use: denies use Illicit Drug Use: denies illicit drug use Functional Ability Ambulation: non-ambulatory, wheelchair bound but is able to transfer by himself Review of Systems Review of Systems Constitutional: Reports: see HPI. EENTM: Reports: no symptoms. Cardiovascular: Reports: no symptoms. Respiratory: Reports: no symptoms. GI: Reports: no symptoms. Genitourinary: Reports: no symptoms. Musculoskeletal: Reports: no symptoms. Skin: Reports: no symptoms. Neurological/Psychological: Reports: see HPI. Hematologic/Endocrine: Reports: no symptoms. Immunologic/Allergic: Reports: no symptoms. All Other Systems: Reviewed and Negative Exam & Diagnostic Data Last 24 Hrs of Vital Signs/I&O Vital Signs Date Time Temp Pulse Resp B/P B/P Pulse O2 O2 Flow FiO2 Mean Ox Delivery Rate 01/12 1928 96.8 84 18 142/64 96 Room Air 01/12 1721 96.1 96 18 123/72 96 Room Air 01/12 1429 99 Room Air 01/12 1428 96.2 63 18 119/72 99 Room Air Intake & Output 01/12 1600 01/12 0800 01/12 0000 Intake Total 200 Output Total Balance 200 Intake, IV 200 Patient 79.379 kg Weight Weight Reported by Patient Measurement Method Physical Exam General Appearance Alert, Oriented X3, Cooperative, No Acute Distress Skin No Rashes, No Breakdown, No Significant Lesion HEENT Atraumatic, PERRLA, EOMI Cardiovascular systolic click, irregular Lungs Clear to Auscultation Abdomen Normal Bowel Sounds, Soft, No Tenderness Neurological Right side contracted and weak. Left side normal. Extremities Normal Pulses, No Tenderness/Swelling, mild edema bilaterally Last 24 Hrs of Labs/Jesus: Laboratory Tests 01/12/18 2110: Troponin I Pending 01/12/18 171: Lactic Acid Cancelled 01/12/18 171: Urine Color YEL, Urine Clarity CLEAR, Urine pH 6.0, Ur Specific Hitchcock 1.020, Urine Protein NEG, Urine Ketones NEG, Urine Nitrite NEG, Urine Bilirubin NEG, Urine Urobilinogen 0.2, Ur Leukocyte Esterase NEG, Ur Microscopic EXAM NOT REQUIRED, Urine Hemoglobin NEG, Urine Glucose NEG 01/12/18 1600: Anion Gap 12, Estimated GFR > 60, BUN/Creatinine Ratio 19.0, Glucose 97, Lactic Acid 1.8, Calcium 9.3, Total Bilirubin 0.7, AST 17, ALT 33, Alkaline Phosphatase 54, Troponin I < 0.01, Total Protein 7.0, Albumin 4.0, Globulin 3.0, Albumin/ Globulin Ratio 1.3, PT 13.4 H, INR 1.28 H, APTT 33, CBC w Diff NO MAN DIFF REQ , RBC 4.57 L, MCV 100.1 H, MCH 33.0 H, MCHC 32.9 L, RDW 14.6 H, MPV 8.0, Gran % 86.6 H, Lymphocytes % 5.7 L, Monocytes % 6.6, Eosinophils % 0.8, Basophils % 0.3, Absolute Granulocytes 13.8 H, Absolute Lymphocytes 0.9 L, Absolute Monocytes 1.1 H, Absolute Eosinophils 0.1, Absolute Basophils 0 Microbiology 01/12 1815 BLOOD: Blood Culture - RECD 01/12 171 URINE ROUT: Urine Culture - RECD 01/12 1600 BLOOD: Blood Culture - RECD 01/12 1434 NASOPHARYN: Influenza Virus A & B Rapid Smear - COMP Assessment/Plan Assessment: Mr. 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 Gross who was last hospitalized here for an episode of unresponsiveness (05/27/2017) ultimately felt secondary to bradycardic-induced syncope who again presents following prolonged (approximately 45 minutes) episode of decreased responsiveness. On presentation, vital signs were T 96.2, HR 63, RR 18, BP 119/72, saturating 99 % on room air. Laboratories person if can for white blood cell count 15.9, 86.6% granulocytes, hemoglobin 15.1, MCV 100.1, come dioxide 31, troponin less than 0.01, LFTs negative, INR 1.28. Urinalysis was negative. Chest x-ray showed mild left atelectasis. He was treated with 1 L normal saline in the emergency room. He will be placed in observation on telemetry and treated for following problems : 1. Syncope 2. Leukocytosis 3. Macrocytosis #Syncope: The patient has had multiple admissions over the past couple years with the exact same presentation. Workup has been consistently unrevealing. Bradycardia has been proposed as a potential cause but no bradycardia has been found on telemetry monitoring. He is currently not on any beta blockade. His history of structural heart disease puts him at high risk for cardiac cause. -Telemetry monitoring -EKG and troponins 3 -TTE -Cardiology consultDr. Gross -TSH, free T4, hemoglobin A1c -Consider head CT -Orthostatic vitals -Consider tilt table testing -Consider assessment for carotid sinus hypersensitivity -Consider using a loop recorder at discharge if no cause is found #Leukocytosis: There are no signs of active infection. This may be reactive. -Continue to monitor #Macrocytosis: No anemia but MCV is elevated. -B12 and folate #Chronic medical problem is: -Continue home medications DVT prophylaxis with apixiban Heart healthy diet DNR/DNI As Ranked By This Provider Problem List: 1. Syncope and collapse Core Measures/Misc (08/18) Acute Coronary Syndrome ACS Diagnosis: No Congestive Heart Failure Congestive Heart Failure Diagnosis No Cerebrovascular Accident CVA/TIA Diagnosis: No VTE (View Protocol) VTE Risk Factors Age>40 No Mechanical VTE Prophylaxis d/t N/A MechProphylax Ordered No VTE Pharm Prophylaxis d/t NA PharmProphylax ordered Sepsis (View protocol) Sepsis Present: No Douglas ZUNIGA,[facility] 01/12/182155: General Information and HPI Allergies/Medications Home Med list Acetaminophen (Athenol) 325 MG TABLET 1 TAB PO BID PAIN (Reported) Amlodipine Besylate 10 MG TABLET 1 TAB PO DAILY HYPERTENSION Apixaban (Eliquis) 2.5 MG TABLET 1 TAB PO BID BLOOD THINNER (Reported) Aspirin (Aspirin*) 81 MG TAB.CHEW 1 TAB PO DAILY HEART/BLOOD (Reported) Baclofen 20 MG TABLET 1 TAB PO TID MUSCLE SPASMS (Reported) Cholecalciferol (Vitamin D3) (Vitamin D) (Unknown Strength) TABLET (Unknown Dose) PO BID SUPPLEMENT (Reported) Folic Acid 1 MG TABLET 1 TAB PO DAILY SUPPLEMENT (Reported) Furosemide (Lasix) 20 MG TABLET 2 TAB PO DAILY DIURETIC (Reported) Losartan (Cozaar) 100 MG TABLET 1 TAB PO DAILY HTN (Reported) Methotrexate 2.5 MG TABLET 5 TAB PO QWED MS (Reported) Metoprolol Tartrate 25 MG TABLET 25 MG PO BID HEART RATE Potassium Chloride 20 MEQ TAB.ER.PRT 1 TAB PO DAILY SUPPLEMENT (Reported) Tamsulosin HCl (Flomax) 0.4 MG CAP.ER.24H 1 CAP PO DAILY PROSTATE (Reported) Trazodone HCl 50 MG TABLET 12.5 MG PO AT BEDTIME SLEEP Resident Review Statement Resident Statement: examined this patient, discussed with test engineering intern Other Findings: H: Mr. Bradley is a pleasant 72-year-old male with a history of hypertension, MS for which he is on methotrexate, deep venous thrombosis (on apixiban), BPH, left ventricular hypertrophy, HFpEF, bioprosthetic aortic valve replacement in March 2010, a left-sided CVA with right hemiparesis, a right-sided DIETETIC TECHNICIAN occipital lobe CVA, paroxysmal atrial flutter who was brought in by ambulance after a prolonged episode of unresponsiveness. Patient states he was in his normal state of health, he had just recently finished having his breakfast and while watching TV the patient fell asleep at approximately 12 PM. Ex- of the patient became concerned when the patient continued to sleep and did not wake up as per usual. She attempted to arouse him, but was unsuccessful and found that that she was unable to palpate a radial or carotid pulse. She subsequently notified the EMS. During this time she also attempted to lay the patient flat. Patient subsequently began to slowly become arousable. After supplemental oxygenation was given by EMS patient began to improve. No signs of seizure activity were noted. Mr Bradley did not endorse any complaints at the time of our clinical interaction. Patient states that the last thing he recals was watching TV and then subsequently waking up to be surrounded by individuals that he could not recognize. No recent medication changes. No recent drug use. Patient was recently hospitalized for workup of unresponsiveness which was attribute it to bradycardic-induced syncope. R: On review of systems the patient denied any fever, chills, nausea, vomiting. Denies any chest pain shortness breath palpitations or lightheadedness. E At the time of presentation temperature: 96.2. Pulse 63. Respiration 18. Blood pressure 119/72. Saturating 99% on room air. General Appearance Alert, Oriented X3, Cooperative, No Acute Distress. Dinner tray at bedside. Skin No Rashes, No Breakdown, No Significant Lesion HEENT Atraumatic, PERRLA, EOMI Cardiovascular: Irregularly Irregualr. +Systolic Click. Lungs Clear to Auscultation. Abdomen Normal Bowel Sounds, Soft, No Tenderness Neurological: Cranial nerves III-12 within normal limits. Right sided flaccid. Left-sided normal. Left-sided strength 5 out of 5. Extremities Normal Pulses, No Tenderness/Swelling L WBC 15.9. Gran % 86.6. H&H 15.1 and 45.7. MCV 100.1. Platelets 295. RDW: 14.6. I XRY-PORTABLE CHEST XRAY. As Above A/P Mr. Bradley is a pleasant 72-year-old male with a history of hypertension, MS for which he is on methotrexate, deep venous thrombosis (on apixiban), BPH, left ventricular hypertrophy, HFpEF, bioprosthetic aortic valve replacement in March 2010, a left-sided CVA with right hemiparesis, a right-sided DIETETIC TECHNICIAN occipital lobe CVA, paroxysmal atrial flutter who was brought in by ambulance after a prolonged episode of unresponsiveness. His episode unresponsiveness likely attributed to decreased perfusions to head. Patient was gently hydrated in the emergency department. Syncope rule out cardiac causes. Orthostatic hypotension. Macrocytic anemia. Leukocytosis. Admit patient to telemetry service. Serial troponins and EKG. Initial troponins have been within normal limits. Obtain cardiology consultation in a.m. We'll obtain an echocardiogram in the morning. Consider imaging studies if any changes in mentation. May also consider neurology consultation in am. Patient may benefit from Holter monitor as outpatient if this has not been done. Patient does have a history of leukocytosis possibly due to stressed emargination. We will repeat CBC in a.m. and monitor. May want to consider carotid Dopplers. Thyroid studies. DVT prophylaxis with Eliquis. Diet heart healthy. Patient is DNR/DNI. 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 At baseline, patient is bedbound or wheelchair bound, and is a Thong lift. This afternoon patient was sitting on his wheelchair and fell asleep. Aniya (ex-) was concerned that he usually does not sleep this long, when she tried to arouse him, he was noted to be unresponsive. Patient was not apneic and thinks she did not feel a pulse. When EMS arrived, they gave him oxygen and he started to wake up. denies any seizure like activity. ER reports that patient was ' bagged' but denies it. Aniya is a retired RN herself. On our evaluation, patient denied any symptoms. Patient is back to baseline as per ex-. Similar episode in 2017 which was attributed to bradycardia induced syncope. Vitals stable. Exam: Awake alert, oriented x2, dry mucous membranes, Chest clear, Heart S1S2 regular, systolic murmur+, Abd soft, NT, Neuro: right sided hemiplegia. Labs: WBC 15.9, macrocytosis, INR 1.28, bicarb 31, lactic acid 1.8, trop neg, UA neg. CXR: mild left basilar atelectasis. EKG: Afib, rate controlled. Echo (2017): EF >65%, stage 1 diastolic dysfunction, mild LVH. Assessment and plan: 1. Unresponsive episode, syncope 2. Leukocytosis likely reactive, no clear source of infection 3. History of paroxysmal Afib/flutter 4. Multiple sclerosis with hemiplegia - 23 hour observation on Telemetry - Check orthostats - Monitor for arrhythmias ?bradycardia - Serial EKG and troponin - Obtain echo cardiogram - Cardio consult (Dr. Gross) - Gentle hydration - Check TSH, free T4. - CT head was not done on ER arrival. Currently patient is back to baseline. If any change in mentation, will check CT head. - Resume amlodipine, losartan, baclofen, methotrexate, aspirin, flomax and lasix. DVT ppx Eliquis. DNR/I. Observation Initial Note - I have personally examined ABELINO BRADLEY on 01/13/18 at 0410. The disposition of ABELINO BRADLEY is uncertain at this time and before a determination can be made, he requires a period of observation for the following reasons [Unresponsive episode, syncope]
[2018-01-12 22:46] VITALS: BP 126/90
[2018-01-13 04:44] LABS: ABSOLUTE EOSINOPHIL COUNT 0.3 /CUMM (0.0-0.7); ABSOLUTE GRANULOCYTE CT 5.6 /CUMM (1.4-6.5)
[2018-01-13 04:51] LABS: ABSOLUTE BASOPHIL COUNT 0 /CUMM (0.0-0.2); ABSOLUTE LYMPH COUNT 1.5 /CUMM (1.2-3.4); BASOPHIL % 0.5 % (0.0-2.0); EOSINOPHIL % 3.3 % (0-5); GRANULOCYTE % 66.5 % (42.2-75.2); MEAN CORPUSCULAR HGB 33.4 PG (27.0-31.0); MEAN CORPUSCULAR HGB CONC 33.3 G/DL (33.0-37.0); MEAN CORPUSCULAR VOLUME 100.2 FL (80.0-94.0); PLATELET COUNT 271 /CUMM (130-400); RBC DISTRIBUTION WIDTH 14.4 % (11.5-14.5); RED BLOOD CELL CT 3.78 /CUMM (4.70-6.10); WHITE BLOOD CELL COUNT 8.5 /CUMM (4.8-10.8)
[2018-01-13 04:52] LABS: HEMATOCRIT 37.9 % (42-52)
[2018-01-13 07:21] VITALS: BP 110/82
--- NOTE | 2018-01-13 07:52 | PN- Housestaff ---
Subjective Follow-up For: Syncope /Episode of decreased responsiveness with EKG findings of atrial fibrillation with controlled ventricular response w/o medications. History of MS Tele-Events Since Last Visit: Atrial flutter/atrial fibrillation heart rate between 91-85. Subjective: Patient is seen and examined this morning seems better, did not recall what happened to him yesterday. Denies any dizziness lightheadedness, no overnight events on surveillance system monitor. Eyes any chest discomfort/trouble breathing palpitations. Patient has been evaluated by cardiology today will follow the recommendations Review of Systems Constitutional: Denies: chills, diaphoresis, fever. EENTM: Denies: blurred vision, double vision, visual changes, eye pain. Cardiovascular: Denies: chest pain, edema, orthopena. Respiratory: Denies: cough, hemoptysis, orthopnea. Gastrointestinal: Denies: abdominal pain, bloating, constipation. Objective Last 24 Hrs of Vital Signs/I&O Vital Signs Date Time Temp Pulse Resp B/P B/P Pulse O2 O2 Flow FiO2 Mean Ox Delivery Rate 01/13 0855 74 110/82 01/13 0854 74 110/82 01/13 0854 74 110/82 01/13 0751 Room Air 01/13 0721 98.1 75 18 110/82 94 Room Air 01/12 2246 97.4 78 18 126/90 95 01/12 2238 94 Room Air 01/12 2212 97.5 84 18 120/64 96 Room Air 01/12 1928 96.8 84 18 142/64 96 Room Air 01/12 1721 96.1 96 18 123/72 96 Room Air 01/12 1429 99 Room Air 01/12 1428 96.2 63 18 119/72 99 Room Air Intake & Output 01/13 1600 01/13 0800 01/13 0000 Intake Total 200 100 Output Total Balance 200 100 Intake, Oral 200 100 Patient 173 lb 174 lb Weight Weight Bed scale Measurement Method Physical Exam General Appearance: Alert, Oriented X3 Skin: No Rashes, No Breakdown HEENT: Atraumatic, PERRLA, EOMI Cardiovascular: Regular Rate, Normal S1, Normal S2 Lungs: Clear to Auscultation, Normal Air Movement Assessment/Plan Assessment: Patient is 72-year-old gentleman with a past medical history significant for multiple sclerosis, history of previous L-sided stroke w/ R hemiparesis, a newer R-sided 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 History of multiple sclerosis History of hypertension and hyperlipidemia plaN Syncope/Episode of decreased responsiveness with EKG findings of atrial fibrillation with controlled ventricular response w/o medications. * Patient has been evaluated by cardiology * EKG strip showed slow A. fib without any AV victorino blocking agents. Slow A. fib with evidence of syncope is likely due to significant conduction disease * As per cardiology patient will benefit from permanent pacemaker. We will consider stopping elliquis, and starting him on heparin . * Will change patient's admission to full admit now, and monitor him on telemetry floor. * As patient is on elliquis and patient had an episode of unresponsiveness will do CT scan of the head without contrast to rule out any underlying intracranial bleed History of multiple sclerosis: * Will call Dr. Servando MD, to find out if there has been done any recent workup regarding MS. * Continue methotrexate , baclofe on hold History of hypertension and hyperlipidemia * Continue home medications continue home medications DVT ppx Eliquis. DNR/I. Problem List: 1. Syncope and collapse Pain Ratin Pain Location: No pain at this time Pain Goal: Remain pain free Pain Plan: When necessary Tylenol Tomorrow's Labs & Rationales: CbC tomorrow
--- NOTE | 2018-01-13 11:41 | Admission Certification ---
Admission Certification Certification Statement - As attending physician, I certify that at the time of - admission, based on clinical presentation, severity of - symptoms, need for further diagnostic testing and - therapeutic interventions, and risk of adverse outcomes - without in-hospital treatment, in my clinical assessment, - this patient requires an acute hospital stay for a minimum - of two nights or longer. I have also considered psychsocial - factors such as support system, advanced age, financial - issues, cognitive issues, and failed out-patient treatments, - past re-admission history, safety of patient, and lack of - compliance as applicable. Specific rationale supporting this admission is: Lengthy episode of syncope with agonal respirations and low pulse
--- NOTE | 2018-01-13 12:08 | CT SCAN REPORT ---
EXAMINATION: CT HEAD WITHOUT CONTRAST CLINICAL INFORMATION: Loss of consciousness COMPARISON: MRI of the brain from 05/27/2017. Head CT from 05/26/2017. TECHNIQUE: Contiguous axial imaging was performed from the skull base to vertex without intravenous administration of contrast. DLP: 648 mGy-cm FINDINGS: There is no hemorrhage or convincing evidence of evolving territorial infarct. There is a sizable chronic infarct involving the right OFFICE MACHINE MECHANIC territory with associated ex vacuo dilatation of the atrium, occipital horn, and temporal horn of the right lateral ventricle. There is moderate partially confluent hypoattenuation in the bihemispheric white matter compatible with chronic microangiopathy. There is a stable punctate lacunar infarct in the right thalamus. There is a chronic lacunar infarct in the right cerebellar hemisphere. There is a stable linear small calcification in the left parasagittal midbrain. There is moderate generalized prominence of the ventricles, sulci, and extra-axial series of spaces, unchanged. No extra-axial collections. No mass effect or shift of the normally midline structures. No acute osseous abnormalities. There is mild mucosal thickening in the ethmoid air cells. The mastoid air cells and middle ear cavities are clear. No acute soft tissue abnormalities. IMPRESSION: No hemorrhage or convincing evidence of evolving territorial infarct. There is stable moderate chronic microangiopathy and volume loss, a stable chronic right OFFICE MACHINE MECHANIC territory infarct, and stable chronic lacunar infarcts in the right thalamus and right cerebellar hemisphere. MRI would be more sensitive in the detection of acute brain ischemia superimposed on the multifocal chronic abnormalities.
--- NOTE | 2018-01-13 12:37 | Cons- Cardiology ---
General Information and HPI Consulting Request Date of Consult: 01/13/18 Requested By: Marni Chang MD Reason for Consult: Syncope. Source of Information: patient, family, old records Exam Limitations: dementia, poor historian History of Present Illness: Mr. 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 occipital lobe stroke with new defecits that included transient confusion and a left homonymous hemianopsia, modestly elevated troponin I's felt secondary to demand ischemia, and a paroxysm of atrial flutter for which he was hospitalized here (02/25-03/02/2016) and started on the factor X a inhibitor Eliquis (apixaban), given his significantly elevated [id number] score who was last hospitalized here for an episode of unresponsiveness (05/26- 05/27/2016) ultimately felt secondary to bradycardic-induced syncope who had his beta radha (labetalol) discontinued at that time, but who again presents following a prolonged (over one half hour) episode of decreased responsiveness. In the ED a 12-lead electrocardiogram revealed atrial fibrillation with ventricular response of 66 bpm. This was a rhythm change from sinus rhythm and a slightly faster rate when compared to his previous tracing from 05/27/2017. A head CT revealed no acute abnormalities. Allergies/Medications Allergies: Coded Allergies: NO KNOWN ALLERGIES (02/27/16) Home Med List: Acetaminophen (Athenol) 325 MG TABLET 1 TAB PO BID PAIN (Reported) Amlodipine Besylate 10 MG TABLET 1 TAB PO DAILY HYPERTENSION Apixaban (Eliquis) 2.5 MG TABLET 1 TAB PO BID BLOOD THINNER (Reported) Aspirin (Aspirin*) 81 MG TAB.CHEW 1 TAB PO DAILY HEART/BLOOD (Reported) Baclofen 20 MG TABLET 1 TAB PO TID MUSCLE SPASMS (Reported) Cholecalciferol (Vitamin D3) (Vitamin D) (Unknown Strength) TABLET (Unknown Dose) PO BID SUPPLEMENT (Reported) Folic Acid 1 MG TABLET 1 TAB PO DAILY SUPPLEMENT (Reported) Furosemide (Lasix) 20 MG TABLET 2 TAB PO DAILY DIURETIC (Reported) Losartan (Cozaar) 100 MG TABLET 1 TAB PO DAILY HTN (Reported) Methotrexate 2.5 MG TABLET 5 TAB PO QWED MS (Reported) Potassium Chloride 20 MEQ TAB.ER.PRT 1 TAB PO DAILY SUPPLEMENT (Reported) Tamsulosin HCl (Flomax) 0.4 MG CAP.ER.24H 1 CAP PO DAILY PROSTATE (Reported) Review of Systems Review of Systems: A 14 point system review was obtained and was noncontributory, other than as above. Past History Travel History Traveled to [place] past 21 day No Medical History Blood Transfusion Hx: No Neurological: CVA, multiple sclerosis EENT: NONE Cardiovascular: hypertension, paroxysmal aflutter AVR 2009 Respiratory: NONE Gastrointestinal: NONE Hepatic: NONE Renal: benign prost hyperplasia Musculoskeletal: NONE Psychiatric: NONE Endocrine: NONE Blood Disorders: DVT ON ELIQUIS Cancer(s): NONE REBRANDER/Reproductive: NONE Surgical History Surgical History: aortic valve replacement 2009 Family History Relations & Conditions If Any: FATHER Valvular heart disease Relation not specified for: *No pertinent family history Psychosocial History Where Do You Live? Home Who Do You Live With? self Services at Home: Nursing Primary Language: Welsh Smoking Status: Former Smoker ETOH Use: denies use Illicit Drug Use: denies illicit drug use Functional Ability Ambulation: non-ambulatory, wheelchair bound but is able to transfer by himself Exam & Diagnostic Data Vital Signs and I&O Vital Signs Date Time Temp Pulse Resp B/P B/P Pulse O2 O2 Flow FiO2 Mean Ox Delivery Rate 01/13 0855 74 110/82 01/13 0854 74 110/82 01/13 0854 74 110/82 01/13 0751 Room Air 01/13 0721 98.1 75 18 110/82 94 Room Air 01/12 2246 97.4 78 18 126/90 95 01/12 2238 94 Room Air 01/12 2212 97.5 84 18 120/64 96 Room Air 01/12 1928 96.8 84 18 142/64 96 Room Air 01/12 1721 96.1 96 18 123/72 96 Room Air 01/12 1429 99 Room Air 01/12 1428 96.2 63 18 119/72 99 Room Air Intake & Output 01/13 1600 01/13 0800 01/13 0000 01/12 1600 01/12 0800 01/12 0000 Intake Total 200 100 200 Output Total Balance 200 100 200 Intake, IV 200 Intake, Oral 200 100 Patient 173 lb 174 lb 175 lb Weight Weight Bed scale Reported by Patient Measurement Method Physical Exam: Well-developed, well-nourished elderly male stress. Vital signs: See above. HEENT: Normocephalic, atraumatic, EOMI, slightly jaundiced membranes. Neck: No JVD, no bruits. Lungs: Clear to auscultation bilaterally. Heart: S1, S2 with grade 2/6 systolic murmur best heard in the base. Abdomen: Soft, nontender, positive bowel sounds. Extremities: No edema. Labs/Jesus Results: Laboratory Tests 01/13 01/12 01/12 0400 2110 1718 Chemistry Sodium (137 - 145 mmol/L) 141 Potassium (3.5 - 5.1 mmol/L) 3.9 Chloride (98 - 107 mmol/L) 105 Carbon Dioxide (22 - 30 mmol/L) 29 Anion Gap (5 - 16) 6 BUN (9 - 20 mg/dL) 23 H Creatinine (0.7 - 1.2 mg/dL) 0.9 Estimated GFR (>60 ml/min) > 60 BUN/Creatinine Ratio (7 - 25 %) 25.6 H Lactic Acid Cancelled Troponin I (<0.11 ng/ml) < 0.01 < 0.01 Vitamin B12 (239 - 931 pg/mL) 764 Folate (2.76 - 20.0 ng/mL) > 20.0 H Hematology CBC w Diff NO MAN DIFF REQ WBC (4.8 - 10.8 /CUMM) 8.5 RBC (4.70 - 6.10 /CUMM) 3.78 L Hgb (14.0 - 18.0 G/DL) 12.6 L Hct (42 - 52 %) 37.9 L MCV (80.0 - 94.0 FL) 100.2 H MCH (27.0 - 31.0 PG) 33.4 H MCHC (33.0 - 37.0 G/DL) 33.3 RDW (11.5 - 14.5 %) 14.4 Plt Count (130 - 400 /CUMM) 271 MPV (7.4 - 10.4 FL) 8.0 Gran % (42.2 - 75.2 %) 66.5 Lymphocytes % (20.5 - 51.1 %) 18.1 L Monocytes % (1.7 - 9.3 %) 11.6 H Eosinophils % (0 - 5 %) 3.3 Basophils % (0.0 - 2.0 %) 0.5 Absolute Granulocytes (1.4 - 6.5 /CUMM) 5.6 Absolute Lymphocytes (1.2 - 3.4 /CUMM) 1.5 Absolute Monocytes (0.10 - 0.60 /CUMM) 1.0 H Absolute Eosinophils (0.0 - 0.7 /CUMM) 0.3 Absolute Basophils (0.0 - 0.2 /CUMM) 0 01/12 01/12 1712 1600 Chemistry Sodium (137 - 145 mmol/L) 144 Potassium (3.5 - 5.1 mmol/L) 4.4 Chloride (98 - 107 mmol/L) 102 Carbon Dioxide (22 - 30 mmol/L) 31 H Anion Gap (5 - 16) 12 BUN (9 - 20 mg/dL) 19 Creatinine (0.7 - 1.2 mg/dL) 1.0 Estimated GFR (>60 ml/min) > 60 BUN/Creatinine Ratio (7 - 25 %) 19.0 Glucose (65 - 99 mg/dL) 97 Hemoglobin A1c (4.2 - 5.8 %) Pending Lactic Acid (0.7 - 2.1 mmol/L) 1.8 Calcium (8.4 - 10.2 mg/dL) 9.3 Total Bilirubin (0.2 - 1.3 mg/dL) 0.7 AST (17 - 59 U/L) 17 ALT (21 - 72 U/L) 33 Alkaline Phosphatase (< 127 U/L) 54 Troponin I (<0.11 ng/ml) < 0.01 Total Protein (6.3 - 8.2 g/dL) 7.0 Albumin (3.5 - 5.0 g/dL) 4.0 Globulin (1.9 - 4.2 gm/dL) 3.0 Albumin/Globulin Ratio (1.1 - 2.2 %) 1.3 TSH (0.270 - 4.200 uIU/mL) 2.250 Free T4 (0.78 - 2.44 ng/dL) 1.69 Prolactin (3.7 - 17.9 ng/mL) 13.5 Coagulation PT (9.4 - 12.5 SEC) 13.4 H INR (0.90 - 1.17) 1.28 H APTT (25 - 37 SEC) 33 Hematology CBC w Diff NO MAN DIFF REQ WBC (4.8 - 10.8 /CUMM) 15.9 H RBC (4.70 - 6.10 /CUMM) 4.57 L Hgb (14.0 - 18.0 G/DL) 15.1 Hct (42 - 52 %) 45.7 MCV (80.0 - 94.0 FL) 100.1 H MCH (27.0 - 31.0 PG) 33.0 H MCHC (33.0 - 37.0 G/DL) 32.9 L RDW (11.5 - 14.5 %) 14.6 H Plt Count (130 - 400 /CUMM) 295 MPV (7.4 - 10.4 FL) 8.0 Gran % (42.2 - 75.2 %) 86.6 H Lymphocytes % (20.5 - 51.1 %) 5.7 L Monocytes % (1.7 - 9.3 %) 6.6 Eosinophils % (0 - 5 %) 0.8 Basophils % (0.0 - 2.0 %) 0.3 Absolute Granulocytes (1.4 - 6.5 /CUMM) 13.8 H Absolute Lymphocytes (1.2 - 3.4 /CUMM) 0.9 L Absolute Monocytes (0.10 - 0.60 /CUMM) 1.1 H Absolute Eosinophils (0.0 - 0.7 /CUMM) 0.1 Absolute Basophils (0.0 - 0.2 /CUMM) 0 Urines Urine Color (YEL,AMB,STR) YEL Urine Clarity (CLEAR) CLEAR Urine pH (5.0 - 8.0) 6.0 Ur Specific [place] (1.001 - 1.035) 1.020 Urine Protein (NEG,<30 MG/DL) NEG Urine Ketones (NEG) NEG Urine Nitrite (NEG) NEG Urine Bilirubin (NEG) NEG Urine Urobilinogen (0.1 - 1.0 EU/dl) 0.2 Ur Leukocyte Esterase (NEG) NEG Ur Microscopic EXAM NOT REQUIRED Urine Hemoglobin (NEG) NEG Urine Glucose (N MG/DL) NEG Diagnostic Data EKG Results 01/12/2018: Atrial fibrillation with a ventricular response of 66 bpm. Faster rate and rhythm change from sinus rhythm since previous tracing from 05/27/2017. CXR Results 01/12/2018: Mild elevation of the left hemidiaphragm, likely due to mild left basilar atelectasis. The lungs are otherwise clear. Other Results Head CT 01/13/2018: No hemorrhage or convincing evidence of evolving territorial infarct. There is stable moderate chronic microangiopathy and volume loss, a stable chronic right RE[employer]ITIES SUPERVISOR territory infarct, and stable chronic lacunar infarcts in the right thalamus and right cerebellar hemisphere. MRI would be more sensitive in the detection of acute brain ischemia superimposed on the multifocal chronic abnormalities. 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 SUPERVISOR occipital lobe stroke w/ new defecits that included transient confusion and a L homonymous hemianopsia, modestly elevated troponin I's felt 2/2 type II DE & a paroxysm of A-flutter for which he was adm (02/25-03/02/2016) and started on the factor X a inhibitor Eliquis (apixaban), given his significantly elevated [id number] score who was last hospitalized here for an episode of unresponsiveness (05/26-05/27/2016) ultimately felt 2/2 bradycardic-induced syncope w/ d/c of beta radha (labetalol) at that time, who again presents following a prolonged (over one half hour) episode of decreased responsiveness & ECG evidence of AF w/ a "controlled" ventricular response w/o medications that typically slow AV conduction. We have previously documented A-flutter with a ventricular response rate of approximately 100 bpm, sinus bradycardia while on beta radha therapy, and now atrial fibrillation with a "controlled" ventricular response rate w/o medications that typically slow AV conduction suggesting the presence of significant underlying conduction disease. It appears that Mr. Kwan could benefit from implantation of a permanent pacemaker. This will be discussed with the patient and family members. As previously noted, baclofen can rarely (<1%) cause bradycardia and would consider tapering this off with neurology, at least until the permanent pacemaker is implanted. Consult Acknowledgment - Thank you for your consult request.
--- NOTE | 2018-01-13 14:09 | PN- Att Addend ---
Attending Addendum Attending Brief Note Patient seen and examined. Agree with resident's note. 72-year-old male past medical history of secondary progressive multiple sclerosis, he is homebound with an electric wheelchair, help with transfers with aides and an ex- and a Thong lift with right-sided hemiplegia. He also has A. fib on Eliquis. He was brought in for a prolonged period of syncope with agonal respiration and a low pulse rate. The zipper setter chainstitch reviewed the strip and it appears that he had very very slow A. fib not on any AV victorino blocking drug and given the syncope with this very slow A. fib this is likely conduction disease of high-grade and patient will likely need a pacemaker. At this point will continue telemetry . We'll continue his Eliquis but if he needs a pacemaker will need to transition him to IV heparin. Will talk to Dr. Constantine Al MD about most recent workup of MS while continuing his methotrexate and baclofen, will get orthostatic blood pressure and follow closely. He clearly needs to be admitted and will need at least 48 hours if not more given the symptomatic syncope with slow A. fib.
[2018-01-13 14:25] VITALS: BP 118/70
[2018-01-13 22:24] VITALS: BP 130/80
[2018-01-14 05:46] VITALS: BP 138/72
--- NOTE | 2018-01-14 07:31 | PN- Housestaff ---
Juliet Barron 01/14/18 0731: Subjective Follow-up For: Syncope /Episode of decreased responsiveness with EKG findings of atrial fibrillation with controlled ventricular response w/o medications. History of MS Tele-Events Since Last Visit: Patient is seen and examined this morning lying comfortably in the bed denies any shortness of breath palpitations chest discomfort, no more episodes of loss of consciousness denies any dizziness lightheadedness. Vital stable overnight Review of Systems Constitutional: Denies: chills, diaphoresis, malaise. EENTM: Denies: blurred vision. Cardiovascular: Denies: chest pain, edema, orthopena. Respiratory: Denies: hemoptysis, orthopnea. Objective Last 24 Hrs of Vital Signs/I&O Vital Signs Date Time Temp Pulse Resp B/P B/P Pulse O2 O2 Flow FiO2 Mean Ox Delivery Rate 01/14 1440 98.4 97 20 116/80 95 Room Air 01/14 0909 89 138/72 01/14 0909 89 138/72 01/14 0909 89 138/72 01/14 0546 97.2 89 20 138/72 95 01/13 2224 98.0 90 20 130/80 96 Room Air 01/13 1521 Room Air Intake & Output 01/14 1600 01/14 0800 01/14 0000 Intake Total 240 100 Output Total Balance 240 100 Intake, Oral 240 100 Number 0 1 Bowel Movements Physical Exam General Appearance: Alert, Oriented X3 Skin: No Rashes, No Breakdown Cardiovascular: Regular Rate, Normal S1, Normal S2 Lungs: Clear to Auscultation, Normal Air Movement Abdomen: Normal Bowel Sounds, Soft, No Tenderness Neurological: Normal Gait, Normal Speech, Strength at 5/5 X4 Ext Current Medications: Current Medications Sig/Victor M Start time Last Medication Dose Route Stop Time Status Admin Amlodipine Besylate 10 MG DAILY 01/13 1000 AC 01/14 PO 09 Apixaban 2.5 MG BID 01/12 2200 AC 01/14 PO 09 Aspirin 81 MG DAILY 01/13 1000 AC 01/14 PO 09 Baclofen 20 MG TID 01/12 2200 AC 01/14 PO 09 Folic Acid 1 MG DAILY 01/13 1000 AC 01/14 PO 09 Furosemide 40 MG DAILY 01/13 1000 AC 01/14 PO 09 Losartan Potassium 100 MG DAILY 01/13 1000 AC 01/14 PO 09 Methotrexate 12.5 MG QWED 01/15 0700 AC PO Potassium Chloride 20 MEQ DAILY 01/13 1000 AC 01/14 PO 09 Tamsulosin HCl 0.4 MG DAILY 01/13 1000 AC 01/14 PO 09 Last 24 Hrs of Lab/Jesus Results Last 24 Hrs of Labs/Mics: Laboratory Tests 01/14/18 0546: CBC w Diff NO MAN DIFF REQ, RBC 3.88 L, MCV 100.4 H, MCH 33.6 H, MCHC 33.5, RDW 14.2, MPV 8.4, Gran % 67.3, Lymphocytes % 16.2 L, Monocytes % 11.8 H, Eosinophils % 4.2, Basophils % 0.5, Absolute Granulocytes 5.7, Absolute Lymphocytes 1.4, Absolute Monocytes 1.0 H, Absolute Eosinophils 0.4, Absolute Basophils 0 Assessment/Plan Assessment: Patient is 72-year-old gentleman with a past medical history significant for multiple sclerosis, history of previous L-sided stroke w/ R hemiparesis, 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 History of multiple sclerosis History of hypertension and hyperlipidemia plaN Syncope/Episode of decreased responsiveness with EKG findings of atrial fibrillation with controlled ventricular response w/o medications. * ct head r/o any intracranial bleed. * Patient has been evaluated by cardiology * EKG strip showed slow A. fib without any AV victorino blocking agents. Slow A. fib with evidence of syncope is likely due to significant conduction disease * As per cardiology patient will benefit from permanent pacemaker. We will consider stopping elliquis, and starting him on heparin . * continue to monitor him on telemetry floor. History of multiple sclerosis: * I talked tp Dr. Servando MD yesterday he mentioned that patient recently had a C-spine imaging done in September(that didn't show any progression of his MS ). recommended to continue him on methotrexate and baclofen he would continue to follow him as an outpatient. History of hypertension and hyperlipidemia * Continue home medications continue home medications DVT ppx Eliquis. DNR/I. Problem List: 1. Syncope and collapse Pain Ratin Pain Location: No pain in the same Pain Goal: Remain pain free Pain Plan: When necessary Tylenol Tomorrow's Labs & Rationales: No need of labs tomorrow DVT/Prophylaxis: pharmacological Marni Chang MD 01/14/18 1608: Attending MD Review Statement Attending Statement Attending MD Statement: examined this patient, discuss w/resident/PA/SHEEP FARM MANAGER, agreed w/resident/PA/SHEEP FARM MANAGER, reviewed EMR data (avail), discussed with nursing, reviewed images Attending Assessment/Plan: Talked to cardiology and the patient will get a pacemaker likely on . His Eliquis has been stopped and will transition him to IV heparin. This is for symptomatic conduction disease that has landed up with prolonged periods of syncope. He'll be evaluated by Dr. Araiza for the pacemaker. We've also touched base with his neurologist and will continue his methotrexate and baclofen for his secondary progressive MS.
[2018-01-14 08:33] LABS: ABSOLUTE BASOPHIL COUNT 0 /CUMM (0.0-0.2); ABSOLUTE EOSINOPHIL COUNT 0.4 /CUMM (0.0-0.7); ABSOLUTE GRANULOCYTE CT 5.7 /CUMM (1.4-6.5); ABSOLUTE LYMPH COUNT 1.4 /CUMM (1.2-3.4); BASOPHIL % 0.5 % (0.0-2.0); EOSINOPHIL % 4.2 % (0-5); GRANULOCYTE % 67.3 % (42.2-75.2); HEMATOCRIT 38.9 % (42-52); MEAN CORPUSCULAR HGB 33.6 PG (27.0-31.0); MEAN CORPUSCULAR HGB CONC 33.5 G/DL (33.0-37.0); MEAN CORPUSCULAR VOLUME 100.4 FL (80.0-94.0); MEAN PLATELET VOLUME 8.4 FL (7.4-10.4); PLATELET COUNT 265 /CUMM (130-400); RBC DISTRIBUTION WIDTH 14.2 % (11.5-14.5); RED BLOOD CELL CT 3.88 /CUMM (4.70-6.10); WHITE BLOOD CELL COUNT 8.4 /CUMM (4.8-10.8)
--- NOTE | 2018-01-14 11:03 | Discharge Summary ---
Visit Information Visit Dates Admission Date: 01/13/18 Discharge Date: 01/21/18 Hospital Course Course Attending Physician: Bernardo ZUNIGA,Marni Alfonso Primary Care Physician: Derrick ZUNIGA,John Dasilva Consulting Request: Consulting Specialty: Cardiology Hospital Course: Patient is 72-year-old gentleman with a past medical history significant for multiple sclerosis, history of previous L-sided stroke w/ R hemiparesis, a newer R-sided ASSEMBLER GOLD FRAME occipital lobe stroke w/ new defecits on elliquis, history of hypertension and hyperlipidemia homebound with an electric wheelchair, presented to the ED for further evaluation of decreased responsiveness for half an hour. ED Course -Vitals: Temp 97 6.1-96.8, HR 84-96, RR 18, BP 119-142/64-72, O2 96% on room air -CBC: WBC 15.9, Hgb/HCT 15.1/45.7, platelet 295 -BMP: Sodium 144, potassium 4.4, chloride 102, CO2 31, urea 19, creatinine 1.0 -LFT: Within normal limits -Miscellaneous: Troponin I <0.01 -Urinalysis: Unremarkable -CXR: Mild elevation of left diaphragm Problem List on Admission -Unresponsive episode, possible syncope -Leukocytosis -Macrocytosis Hospital Course Patient was admitted to the telemetry floor for further evaluation. He was maintained on telemetry and cardiology consult was placed with his gate guard Dr. Gross. Patient was found to be in slow A. 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 Eliquis was held and bridged to heparin. A pacemaker was recommended which was placed on 01/16/18. Patient became hypoxic 24 hours later for which a stat chest x-ray demonstrated a large left-sided 40% pneumothorax. Stat CT surgery consult was placed and left-sided CT-guided chest tube was placed. The chest tube was removed uneventfully 3 days later and patient's eliquis was resumed. Patient was started on metoprolol for further rate control after the pacemaker was placed. During the hospitalization patient had periods of agitation and confusion for which he was given several doses of IM olanzapine/Haldol. He was started on trazodone nightly for sleep regulation and risperidone as needed for episodes of agitation. He is being discharged with trazodone as it seemed to help him avoid any further episodes of agitation. He is being discharged with instruction to follow-up with his gate guard's Dr. Gross and Dr. Araiza shortly after discharge. Continue on metoprolol and trazodone. He is to continue all his previous home medications including eliquis. Patient should have a repeat chest x-ray done in 3-4 days to assess for interval resolution of the "dense left lung base" finding. Allergies: Coded Allergies: NO KNOWN ALLERGIES (02/27/16) Significant Procedures: SERVICE DATE: 01/12/18-1557 EXAM TYPE: RAD - XRY-PORTABLE CHEST XRAY IMPRESSION: Mild elevation of the left hemidiaphragm, likely due to mild left basilar atelectasis. The lungs are otherwise clear. SERVICE DATE: 01/13/18- EXAM TYPE: CAT - CT HEAD WO IV CONTRAST IMPRESSION: No hemorrhage or convincing evidence of evolving territorial infarct. There is stable moderate chronic microangiopathy and volume loss, a stable chronic right ASSEMBLER GOLD FRAME territory infarct, and stable chronic lacunar infarcts in the right thalamus and right cerebellar hemisphere. MRI would be more sensitive in the detection of acute brain ischemia superimposed on the multifocal chronic abnormalities. SERVICE DATE: 01/14/18- EXAM TYPE: CARD - ECHOCARDIOGRAM CONCLUSIONS Small left ventricular cavity. Mild concentric left ventricular hypertrophy. Normal left ventricular ejection fraction visually estimated at > 60%. Mildly increased resting left ventricular outflow tract velocity (1.2 m/s). Normal right ventricular size and function. Mild to moderate atrial dilatation. Bioprosthetic aortic valve not well visualized. Gradient recorded across the prosthetic aortic valve within the expected range. Mild tricuspid regurgitation. Mild pulmonary hypertension. Dilated inferior vena cava. SERVICE DATE: 01/16/18-145 EXAM TYPE: RAD - XRY-CHEST XRAY, SINGLE VIEW; XRY-PORTABLE CHEST XRAY FINDINGS: demonstrating dual leads from pacemaker insertion in region of right atrium and right ventricle respectively. Sternotomy wires noted. Valves replacement noted SERVICE DATE: 01/17/18- EXAM TYPE: CAT - CT CHEST TUBE INSERTION IMPRESSION: Successful placement of a nonlocking left pleural tube with successful evacuation of the large left pneumothorax. SERVICE DATE: 01/17/18135 EXAM TYPE: RAD - XRY-PORTABLE CHEST XRAY IMPRESSION: Left pneumothorax has increased in size. Associated worsening atelectasis in left lung base. SERVICE DATE: 01/17/18 EXAM TYPE: RAD - XRY-PORTABLE CHEST XRAY IMPRESSION: Left chest tube catheter in place, with no appreciable residual pneumothorax. Lateral left basilar opacity which may reflect atelectasis and/or consolidation. SERVICE DATE: 01/18/18 EXAM TYPE: RAD - XRY-PORTABLE CHEST XRAY IMPRESSION: Trace left apical pneumothorax in the presence of chest tube. Persistent opacity at the left lung base. SERVICE DATE: 01/20/18 EXAM TYPE: RAD - XRY-CHEST XRAY, TWO VIEWS IMPRESSION: 1. No definite left-sided pneumothorax is seen status post putting the left pleural catheter on waterseal. 2. Persistent mild volume loss in the left hemithorax with elevation of the left hemidiaphragm and patchy parenchymal opacities in the left lung base, consistent with atelectasis and/or pneumonia. The appearance is similar to the prior exam. SERVICE DATE: 01/20/18 EXAM TYPE: RAD - XRY-PORTABLE CHEST XRAY IMPRESSION: Left chest tube is been removed. There is now a dense left lung base due to effusion, infiltrate or atelectasis. No pneumothorax. Disposition Summary Disposition Principal Diagnosis: Syncope/Episode of decreased responsiveness with EKG findings of atrial fibrillation with controlled ventricular response w/o medications, Afib with tachy-cece syndrome: pneumothorax Additional Diagnosis: History of multiple sclerosis Discharge Disposition: SNF Discharge Instructions General Discharge Information Code Status: Do Not Resucitate/Intubat Patient's Diet: Heart healthy diet Patient's Activity: As tolerated Follow-Up Instructions/Appts: Continue all your previous home medicaitons, especially your Eliquis. Follow up with your gate guard Dr. Gross / Dr. Araiza after discharge. F/U chest xray to ensure radiographic resolution Medications at Discharge Discharge Medications: Continue taking these medications: Apixaban (Eliquis) 2.5 MG TABLET 1 Tablet ORAL TWICE DAILY Comments: Last Taken: 05/27/17 Time: 2030 Methotrexate (Methotrexate) 2.5 MG TABLET 5 Tablet ORAL EVERY SATURDAY Acetaminophen (Athenol) 325 MG TABLET 1 Tablet ORAL TWICE DAILY Aspirin (Aspirin*) 81 MG TAB.CHEW 1 Tablet ORAL DAILY Comments: Last Taken: 05/27/17 Time: 0900 AM Baclofen (Baclofen) 20 MG TABLET 1 Tablet ORAL THREE TIMES DAILY Comments: Last Taken: 05/27/17 Time: 0800 PM Losartan (Cozaar) 100 MG TABLET 1 Tablet ORAL DAILY Comments: Last Taken: 05/27/17 Time: 0900 AM Tamsulosin HCl (Flomax) 0.4 MG CAP.ER.24H 1 Capsule ORAL DAILY Comments: Last Taken:05/27/17 Time:0900 Amlodipine Besylate (Amlodipine Besylate) 10 MG TABLET 1 Tablet ORAL DAILY Qty = 30 Comments: Last Taken: 05/27/17 Time: 9 AM Folic Acid (Folic Acid) 1 MG TABLET 1 Tablet ORAL DAILY Qty = 64 Furosemide (Lasix) 20 MG TABLET 2 Tablet ORAL DAILY Cholecalciferol (Vitamin D3) (Vitamin D) (Unknown Strength) TABLET Unknown Dose ORAL TWICE DAILY Potassium Chloride (Potassium Chloride) 20 MEQ TAB.ER.PRT 1 Tablet ORAL DAILY Qty = 90 Start taking the following new medications: Metoprolol Tartrate (Metoprolol Tartrate) 25 MG TABLET 25 Milligram ORAL TWICE DAILY Qty = 60 No Refills Trazodone HCl (Trazodone HCl) 50 MG TABLET 12.5 Milligram ORAL AT BEDTIME Qty = 30 No Refills Copies To: Renato ZUNIGA,Abdi S.; Servando ZUNIGA,Constantine B; Jose G ZUNIGA PHD,Myron S.; Derrick ZUNIGA,John Dasilva
[2018-01-14 14:40] VITALS: BP 116/80
--- NOTE | 2018-01-14 18:48 | ECHOCARDIOGRAM REPORT ---
ABELINO BRADLEY Age: 72 : 1945 Gender: M Exam Date: 01/14/2018 09:59 Exam Location: [address] Ht (in): 74 Wt (lb): 173 BSA: 2.02 BP: 134 / 72 Ordering Physician: Bob Esparza MD Referring Physician: Bob Esparza MD Technologist: Kemal So [facility] Room Number: 185-1 Indications: PRESYNCOPE/SYNCOPE Rhythm: Atrial fibrillation Technical Quality: Fair FINDINGS Left Ventricle Small left ventricular cavity. Mild concentric left ventricular hypertrophy. No obvious regional wall motion abnormalities. Normal left ventricular ejection fraction visually estimated at >60%. Mildly increased resting left ventricular outflow tract velocity (1.2 m/s). Right Ventricle Normal right ventricular size and function. Right Atrium Mild to moderate right atrial dilatation. Left Atrium Mild to moderate left atrial dilatation. Mitral Valve Moderate mitral annular calcification. Mitral valve thickened. No mitral regurgitation. Aortic Valve Bioprosthetic aortic valve not well visualized. Gradient recorded across the prosthetic aortic valve within the expected range. No aortic regurgitation. Tricuspid Valve Structurally normal tricuspid valve. Mild tricuspid regurgitation. Mild pulmonary hypertension. Right ventricular systolic pressure estimated to be elevated at 43 mmHg. Pulmonic Valve Pulmonic valve not well visualized, grossly normal. No pulmonic regurgitation. Pericardium No pericardial effusion. Great Vessels Normal size aortic root. Dilated inferior vena cava. CONCLUSIONS Small left ventricular cavity. Mild concentric left ventricular hypertrophy. Normal left ventricular ejection fraction visually estimated at > 60%. Mildly increased resting left ventricular outflow tract velocity (1.2 m/s). Normal right ventricular size and function. Mild to moderate atrial dilatation. Bioprosthetic aortic valve not well visualized. Gradient recorded across the prosthetic aortic valve within the expected range. Mild tricuspid regurgitation. Mild pulmonary hypertension. Dilated inferior vena cava. Abdi Gross M.D. (Electronically Signed) Final Date: 14 January 2018 18:48 MEASUREMENTS (Male / Female) Normal Values 2D ECHO LV Diastolic Diameter PLAX 3.4 cm 4.2 - 5.9 / 3.9 - 5.3 cm LV Systolic Diameter PLAX 2.1 cm 2.1 - 4.0 cm LV Fractional Shortening PLAX 38.2 % 25 - 46 % LV Ejection Fraction 2D Teich 69.6 % IVS Diastolic Thickness 1.2 cm LVPW Diastolic Thickness 1.1 cm LV Relative Wall Thickness 0.7 RV Internal Dim ED PLAX 2.6 cm 1.9 - 3.8 cm LVOT Diameter 1.7 cm Aortic Root Diameter 3.2 cm LA Systolic Diameter LX 4.1 cm 3.0 - 4.0 / 2.7 - 3.8 cm Ascending Aorta Diameter 2.8 cm DOPPLER AV Peak Velocity 233.0 cm/s AV Peak Gradient 21.7 mmHg AV Mean Velocity 149.0 cm/s AV Mean Gradient 11.0 mmHg AV Velocity Time Integral 44.0 cm LVOT Peak Velocity 123.0 cm/s LVOT Peak Gradient 6.1 mmHg LVOT Mean Velocity 78.8 cm/s LVOT Mean Gradient 3.0 mmHg LVOT Velocity Time Integral 22.9 cm LVOT Stroke Volume 52.0 cm AV Area Cont Eq vti 1.2 cm AV Area Cont Eq pk 1.2 cm MV Peak Velocity 132.0 cm/s MV Peak Gradient 7.0 mmHg MV Mean Velocity 74.4 cm/s MV Mean Gradient 3.0 mmHg Mitral E Point Velocity 142.0 cm/s MV PHT Velocity 132.0 cm/s MV Deceleration [place] 398.0 cm/s MV Pressure Half Time 99.5 ms MV Area PHT 2.2 cm MV Deceleration Time 296.0 ms TR Peak Velocity 288.0 cm/s TR Peak Gradient 33.2 mmHg Right Atrial Pressure 10.0 mmHg Pulmonary Artery Systolic Pressu 43.2 mmHg Right Ventricular Systolic Press 43.2 mmHg PV Peak Velocity 73.1 cm/s PV Peak Gradient 2.1 mmHg PV Mean Velocity 54.7 cm/s PV Mean Gradient 1.0 mmHg PV Velocity Time Integral 14.2 cm LV E' Lateral Velocity 10.8 cm/s Mitral E to LV E' Lateral Ratio 13.1 LV E' Septal Velocity 6.2 cm/s Mitral E to LV E' Septal Ratio 22.8
[2018-01-14 19:42] VITALS: BP 132/84
[2018-01-14 22:46] VITALS: BP 130/80
[2018-01-15 01:01] LABS: PTT 58 SEC (25-37)
--- NOTE | 2018-01-15 05:06 | PN- Housestaff ---
Sukhdeep Fox MD 01/15/18 0455: Subjective Follow-up For: Slow atrial fibrillation Tele-Events Since Last Visit: Atrial Fibrillation with RVR up to 160s until 2AM HR < 100 since 2AM Subjective: Patient seen and examined. He is seen lying flat in bed resting comfortably and appearing tired. He is maintained in a single left upper extremity soft restraint. He is oriented to person, not place or time. He denies any complaints , review of systems are unobtainable. Review of Systems Constitutional: Reports: see HPI. Objective Last 24 Hrs of Vital Signs/I&O Vital Signs Date Time Temp Pulse Resp B/P B/P Pulse O2 O2 Flow FiO2 Mean Ox Delivery Rate 01/15 1416 98.4 96 20 102/64 95 Room Air 01/15 0935 114 140/90 01/15 0935 114 140/90 01/15 0935 114 140/90 01/15 0700 98.4 114 20 140/90 93 Room Air 01/14 2246 98.8 114 20 130/80 94 Room Air 01/14 1942 98.5 105 20 132/84 92 Room Air Intake & Output 01/15 1600 01/15 0800 01/15 0000 Intake Total 200 104 Output Total 2 Balance 198 104 Intake, IV 200 104 Number 1 Bowel Movements Output, Urine 2 Physical Exam General Appearance: Alert, Oriented X3, Cooperative, No Acute Distress Other Physical Findings: GEN: thin, ill appearing elderly man in no acute distress HEENT: NCAT, PERRL, EOMI, anicteric sclera CARD: normal s1/s2; irregularly PULM: CTA bilaterally ABD: Soft, NT, ND, BS+ NEURO: Awake and alert, CN II-XII grossly intact, right sided hemiparesis EXT: soft restraint LUE, normal pulses, no edema Current Medications: Current Medications Sig/Victor M Start time Last Medication Dose Route Stop Time Status Admin Amlodipine Besylate 10 MG DAILY 01/13 1000 AC 01/15 PO 934 Aspirin 81 MG DAILY 01/13 1000 AC 01/15 PO 35 Baclofen 20 MG TID 01/12 2200 AC 01/15 PO 0935 Folic Acid 1 MG DAILY 01/13 1000 AC 01/15 PO 35 Furosemide 40 MG DAILY 01/13 1000 AC 01/15 PO 0935 Heparin Sodium 3,100 UNIT ONCE ONE 01/15 0200 DC 01/15 (Porcine) IV 01/15 0201 0209 Heparin Sodium 5,000 UNIT .STK-MED ONE 01/15 0147 DC (Porcine) IV 01/15 0148 Heparin Sodium 25,000 UNIT Q24H 01/14 1600 AC 01/14 (Porcine) IV 01/16 0900 1750 Sodium Chloride 500 ML Losartan Potassium 100 MG DAILY 01/13 1000 AC 01/15 PO 0935 Methotrexate 12.5 MG QWED 01/15 0700 AC 01/15 PO 0636 Olanzapine 5 MG ONCE ONE 01/14 2100 DC 01/14 IM 01/14 2101 2112 Potassium Chloride 20 MEQ DAILY 01/13 1000 AC 01/15 PO 0935 Risperidone 0.5 MG Q6P PRN 01/15 1400 AC PO Tamsulosin HCl 0.4 MG DAILY 01/13 1000 AC 01/15 PO 0935 Trazodone HCl 12.5 MG AT BEDTIME 01/15 2200 AC PO Last 24 Hrs of Lab/Jesus Results Last 24 Hrs of Labs/Mics: Laboratory Tests 01/15/18 1450: APTT 50 H 01/15/18 0805: APTT > 120 *H 01/15/18 0615: CBC w Diff NO MAN DIFF REQ, RBC 4.02 L, MCV 99.7 H, MCH 33.3 H, MCHC 33.4, RDW 14.8 H, MPV 8.4, Gran % 73.7, Lymphocytes % 12.4 L, Monocytes % 11.2 H, Eosinophils % 2.2, Basophils % 0.5, Absolute Granulocytes 7.7 H, Absolute Lymphocytes 1.3, Absolute Monocytes 1.2 H, Absolute Eosinophils 0.2, Absolute Basophils 0.1 01/15/18 0020: APTT 58 H Assessment/Plan Assessment: 72 year old man with multiple medical problems significant for multiple CVAs and MS brought in by ambulance for decreased responsiveness. Patient was agitated last evening and ripped out his IV for which he was placed in a single soft left upper extremity restraint and given haldol. His heart rate improved when his agitation resolved. This morning he was somnolent and confused and later seen to be awake and mildly more alert this afternoon. The restraint was removed and Risperidone was ordered PRN for further agitation. He is to be kept NPO tonight in anticipation of placement of a permanent pacemaker around 1PM tomorrow. Heparin is to stop at 9AM. He is started on bedtime Trazodone. 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 COMMISSIONER occipital CVA with new deficits, on Eliquis -History of L-sided CVA with residual right sided deficits -History of Multiple Sclerosis -Hypertension -Hyperlipidemia Plan: -Continue Telemetry -Continue heparin until PPM placement on ; restart Eliquis when okay with cardio -Continue home Methotraxe, Folic Acid, and Baclofen for MS -Continue amlodipine, losartan, lasix for hypertension -Continue aspirin, flomax -Risperidone PRN for agitation -Trazodone 12.5 mg PO QHS -Consult with cardiology -Heart Healthy Diet, NPO Tonight for PPM placement morning -DVT PPx: IV Heparin -DNR/DNI Problem List: 1. Syncope and collapse Pain Ratin Pain Location: None Pain Goal: Remain pain free Pain Plan: See assessment Tomorrow's Labs & Rationales: BROCK Chang MD,Marni 01/15/18 1150: Attending MD Review Statement Attending Statement Attending MD Statement: examined this patient, discuss w/resident/PA/ELDER COUNSELOR, agreed w/resident/PA/ELDER COUNSELOR, reviewed EMR data (avail), discussed with nursing, discussed with case mgmt, reviewed images Attending Assessment/Plan: Overnight patient got agitated and bit off his IV. He is a 72-year-old with multiple sclerosis and previous stroke with right hemiparesis. He has A. fib and was on Eliquis as an outpatient but here with syncope and very slow A. fib now meeting indications for pacemaker. He is on IV heparin and we are keeping him nothing by mouth after midnight for a pacemaker in a.m. I spoke to Dr. Gross and will need to stop the heparin for 3-4 hours before the pacemaker. We 'll try some low-dose trazodone at bedtime to help with sleep and prevent sundowning and agitation.
[2018-01-15 07:00] VITALS: BP 140/90
[2018-01-15 08:17] LABS: ABSOLUTE BASOPHIL COUNT 0.1 /CUMM (0.0-0.2); ABSOLUTE EOSINOPHIL COUNT 0.2 /CUMM (0.0-0.7); ABSOLUTE GRANULOCYTE CT 7.7 /CUMM (1.4-6.5); ABSOLUTE LYMPH COUNT 1.3 /CUMM (1.2-3.4); ABSOLUTE MONOCYTE COUNT 1.2 /CUMM (0.10-0.60); BASOPHIL % 0.5 % (0.0-2.0); EOSINOPHIL % 2.2 % (0-5); GRANULOCYTE % 73.7 % (42.2-75.2); HEMATOCRIT 40.1 % (42-52); MEAN CORPUSCULAR HGB 33.3 PG (27.0-31.0); MEAN CORPUSCULAR HGB CONC 33.4 G/DL (33.0-37.0); MEAN CORPUSCULAR VOLUME 99.7 FL (80.0-94.0); MEAN PLATELET VOLUME 8.4 FL (7.4-10.4); PLATELET COUNT 268 /CUMM (130-400); RBC DISTRIBUTION WIDTH 14.8 % (11.5-14.5); RED BLOOD CELL CT 4.02 /CUMM (4.70-6.10); WHITE BLOOD CELL COUNT 10.5 /CUMM (4.8-10.8)
[2018-01-15 08:58] LABS: PTT > 120 SEC (25-37)
[2018-01-15 14:16] VITALS: BP 102/64
--- NOTE | 2018-01-15 16:07 | PN- Att Addend ---
Attending Addendum Attending Brief Note Mr. Owens is a 72-year-old male with a past medical history of multiple sclerosis and atrial fibrillation who came in with a prolonged period of syncope. He was anticoagulated on Eliquis on admission and in reviewing his overnight monitor technician on the , Dr. Gross felt that this was very slow A. fib in the absence of any AV victorino blocking drugs indicated of high-grade conduction disease and he will likely need a pacemaker. Because he was on Eliquis he is at high risk for bleeding and the Eliquis was stopped but because he is also a high risk for stroke he was transitioned to IV heparin. He is now on IV heparin with the plan to turn it off 3-4 hours before the anticipated pacemaker which is scheduled for January 16 at 1 PM. We had to wait for the effect of the Eliquis to wear off and to use a short-acting anticoagulant that can be turned off rapidly.
[2018-01-15 16:13] LABS: PTT 50 SEC (25-37)
--- NOTE | 2018-01-15 18:20 | PN- Cardiology ---
Subjective Subjective: Mr. Kwan seen last evening and was without complaints. On telemetry he has remained in atrial fibrillation. There were no significant pauses of greater than 2.5 seconds observed and/or significant pericardial runs of less than 40 bpm. Objective Vital Signs and I&Os Vital Signs Date Time Temp Pulse Resp B/P B/P Pulse O2 O2 Flow FiO2 Mean Ox Delivery Rate 01/15 1416 98.4 96 20 102/64 95 Room Air 01/15 0935 114 140/90 01/15 0935 114 140/90 01/15 0935 114 140/90 01/15 0700 98.4 114 20 140/90 93 Room Air 01/14 2246 98.8 114 20 130/80 94 Room Air 01/14 1942 98.5 105 20 132/84 92 Room Air Intake & Output 01/15 1600 01/15 0800 01/15 0000 01/14 1600 01/14 0800 01/14 0000 Intake Total 200 104 450 240 100 Output Total 2 Balance 198 104 450 240 100 Intake, IV 200 104 Intake, Oral 450 240 100 Number 1 2 0 1 Bowel Movements Output, Urine 2 Physical Exam: Well-developed, well-nourished elderly male stress. Vital signs: See above. HEENT: Normocephalic, atraumatic, EOMI, slightly jaundiced membranes. Neck: No JVD, no bruits. Lungs: Clear to auscultation bilaterally. Heart: S1, S2 with grade 2/6 systolic murmur best heard in the base. Abdomen: Soft, nontender, positive bowel sounds. Extremities: No edema. 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 We had previously documented A-flutter with a ventricular response rates of approximately 100 bpm, sinus bradycardia while on beta radha therapy, and now atrial fibrillation with both "controlled" ventricular response rate w/o medications that typically slow AV conduction suggesting the presence of significant underlying conduction disease and now more rapid ventricular response rates c/w which ideally should be treated. It appears that Mr. Kwan could benefit from implantation of a permanent pacemaker. This was discussed with the patient's and his ex-. There with discussing this further with other family members. We will tentatively plan to have the permanent pacemaker implanted this coming 01/16/2018. We will make the patient nothing by mouth after midnight Saturday01/15/2018. His NOAC was held after this mornings dosage and IV heparin will be started. This will be discontinued approximately 4 hours prior to the planned pacemaker implantation. Continue telemetry? Yes
--- NOTE | 2018-01-15 18:23 | PN- Cardiology ---
Subjective Subjective: No complaints. Remains in atrial fibrillation on telemetry without significant pauses and/or bradycardia. Objective Vital Signs and I&Os Vital Signs Date Time Temp Pulse Resp B/P B/P Pulse O2 O2 Flow FiO2 Mean Ox Delivery Rate 01/15 1416 98.4 96 20 102/64 95 Room Air 01/15 0935 114 140/90 01/15 0935 114 140/90 01/15 0935 114 140/90 01/15 0700 98.4 114 20 140/90 93 Room Air 01/14 2246 98.8 114 20 130/80 94 Room Air 01/14 1942 98.5 105 20 132/84 92 Room Air Intake & Output 01/15 1600 01/15 0800 01/15 0000 01/14 1600 01/14 0800 01/14 0000 Intake Total 200 104 450 240 100 Output Total 2 Balance 198 104 450 240 100 Intake, IV 200 104 Intake, Oral 450 240 100 Number 1 2 0 1 Bowel Movements Output, Urine 2 Physical Exam: Well-developed, well-nourished elderly male stress. Vital signs: See above. HEENT: Normocephalic, atraumatic, EOMI, slightly jaundiced membranes. Neck: No JVD, no bruits. Lungs: Clear to auscultation bilaterally. Heart: S1, S2 with grade 2/6 systolic murmur best heard in the base. Abdomen: Soft, nontender, positive bowel sounds. Extremities: No edema. Current Medications: Current Medications Sig/Victor M Start time Last Medication Dose Route Stop Time Status Admin Amlodipine Besylate 10 MG DAILY 01/13 1000 AC 01/15 PO 0935 Aspirin 81 MG DAILY 01/13 1000 AC 01/15 PO 0935 Baclofen 20 MG TID 01/12 2200 AC 01/15 PO 0935 Folic Acid 1 MG DAILY 01/13 1000 AC 01/15 PO 0935 Furosemide 40 MG DAILY 01/13 1000 AC 01/15 PO 0935 Heparin Sodium 3,200 UNIT ONCE ONE 01/15 1800 DC (Porcine) IV 01/15 1801 Heparin Sodium 3,100 UNIT ONCE ONE 01/15 0200 DC 01/15 (Porcine) IV 01/15 020 0209 Heparin Sodium 5,000 UNIT .STK-MED ONE 01/15 0147 DC (Porcine) IV 01/15 0148 Heparin Sodium 25,000 UNIT Q24H 01/14 1600 AC 01/15 (Porcine) IV 01/16 0900 1700 Sodium Chloride 500 ML Losartan Potassium 100 MG DAILY 01/13 1000 AC 01/15 PO 0935 Methotrexate 12.5 MG QWED 01/15 0700 AC 01/15 PO 0636 Olanzapine 5 MG ONCE ONE 01/14 2100 DC 01/14 IM 01/14 Potassium Chloride 20 MEQ DAILY 01/13 1000 AC 01/15 PO 0935 Risperidone 0.5 MG Q6P PRN 01/15 1400 AC PO Tamsulosin HCl 0.4 MG DAILY 01/13 1000 AC 01/15 PO 0935 Trazodone HCl 12.5 MG AT BEDTIME 01/15 2200 AC PO Results Last 48 Hrs of Labs/Mics: Laboratory Tests 01/15/18 1450: APTT 50 H 01/15/18 0805: APTT > 120 *H 01/15/18 0615: CBC w Diff NO MAN DIFF REQ, RBC 4.02 L, MCV 99.7 H, MCH 33.3 H, MCHC 33.4, RDW 14.8 H, MPV 8.4, Gran % 73.7, Lymphocytes % 12.4 L, Monocytes % 11.2 H, Eosinophils % 2.2, Basophils % 0.5, Absolute Granulocytes 7.7 H, Absolute Lymphocytes 1.3, Absolute Monocytes 1.2 H, Absolute Eosinophils 0.2, Absolute Basophils 0.1 01/15/18 0020: APTT 58 H 01/14/18 0546: CBC w Diff NO MAN DIFF REQ, RBC 3.88 L, MCV 100.4 H, MCH 33.6 H, MCHC 33.5, RDW 14.2, MPV 8.4, Gran % 67.3, Lymphocytes % 16.2 L, Monocytes % 11.8 H, Eosinophils % 4.2, Basophils % 0.5, Absolute Granulocytes 5.7, Absolute Lymphocytes 1.4, Absolute Monocytes 1.0 H, Absolute Eosinophils 0.4, Absolute Basophils 0 Recent Imaging Studies: Echocardiogram 01/14/2018: Small left ventricular cavity. Mild concentric left ventricular hypertrophy. Normal left ventricular ejection fraction visually estimated at >60%. Mildly increased resting left ventricular outflow tract velocity (1.2 m/s). Normal right ventricular size and function. Mild to moderate atrial dilatation. Bioprosthetic aortic valve not well visualized. Gradient recorded across the prosthetic aortic valve within the expected range. Mild tricuspid regurgitation. Mild pulmonary hypertension. Dilated inferior vena cava. 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 occipital lobe stroke w/ new defecits that included transient confusion and a L homonymous hemianopsia, modestly elevated troponin I's felt 2/2 type II [place] & a paroxysm of A-flutter for which he was adm (02/25-03/02/2016) and started on the factor X a inhibitor Eliquis (apixaban), given his significantly elevated [id number] score who was last hospitalized here for an episode of unresponsiveness (05/26-05/27/2016) ultimately felt 2/2 bradycardic-induced syncope w/ d/c of beta radha (labetalol) at that time, who again presents following a prolonged (over one half hour) episode of decreased responsiveness & ECG evidence of AF w/ a "controlled" ventricular response w/o medications that typically slow AV conduction. We had previously documented A-flutter with a ventricular response rates of approximately 100 bpm, sinus bradycardia while on beta radha therapy, and now atrial fibrillation with both "controlled" ventricular response rate w/o medications that typically slow AV conduction suggesting the presence of significant underlying conduction disease and now more rapid ventricular response rates which should be treated. It appears that Mr. Kwan could benefit from implantation of a permanent pacemaker. This was discussed with the patient's and his ex-. There with discussing this further with other family members. We will tentatively plan to have the permanent pacemaker implanted this coming 01/16/2018. We will make the patient nothing by mouth after midnight Saturday01/15/2018. His NOAC was held after this mornings dosage and IV heparin will be started. This will be discontinued approximately 4 hours prior to the planned pacemaker implantation. Continue telemetry? Yes
[2018-01-15 22:03] LABS: PTT > 120 SEC (25-37)
[2018-01-15 22:28] VITALS: BP 102/60
[2018-01-16 06:45] VITALS: BP 108/70
--- NOTE | 2018-01-16 07:03 | PN- Housestaff ---
Sukhdeep Fox MD 01/16/18 0702: Subjective Follow-up For: Slow atrial fibrillation Tele-Events Since Last Visit: Atrial Fibrillation HR 83-94 since 0000 Subjective: Patient seen and examined. He is seen lying flat in bed resting comfortably. He appears to be in no acute distress. He is again only oriented to person, but is calm and not agitated. He does remember the pacemaker procedure later this afternoon, and has no questions about it at this time. He denies any chest pain, shortness of breath, palpitaitons. Review of Systems Constitutional: Reports: see HPI. Objective Last 24 Hrs of Vital Signs/I&O Vital Signs Date Time Temp Pulse Resp B/P B/P Pulse O2 O2 Flow FiO2 Mean Ox Delivery Rate 01/16 0645 97.5 77 16 108/70 94 Room Air 01/15 2228 99.1 78 18 102/60 92 Room Air 01/15 1416 98.4 96 20 102/64 95 Room Air 01/15 0935 114 140/90 01/15 0935 114 140/90 01/15 0935 114 140/90 Intake & Output 01/16 1600 01/16 0800 01/16 0000 Intake Total 157.6 198 Output Total Balance 157.6 198 Intake, IV 157.6 78 Intake, Oral 120 Physical Exam General Appearance: Alert, Cooperative, No Acute Distress Other Physical Findings: GEN: thin, ill appearing elderly man in no acute distress HEENT: NCAT, PERRL, EOMI, anicteric sclera CARD: normal s1/s2; irregularly irregular PULM: CTA bilaterally ABD: Soft, NT, ND, BS+ NEURO: Awake and alert, CN II-XII grossly intact, right sided hemiparesis EXT: normal pulses, no edema Current Medications: Current Medications Sig/Victor M Start time Last Medication Dose Route Stop Time Status Admin Amlodipine Besylate 10 MG DAILY 01/13 1000 AC 01/15 PO 35 Aspirin 81 MG DAILY 01/13 1000 AC 01/15 PO 35 Baclofen 20 MG TID 01/120 AC 01/15 PO 211 Folic Acid 1 MG DAILY 01/13 1000 AC 01/15 PO 0935 Furosemide 40 MG DAILY 01/13 1000 AC 01/15 PO 0935 Heparin Sodium 3,200 UNIT ONCE ONE 01/15 1800 DC 01/15 (Porcine) IV 01/15 1801 1830 Heparin Sodium 25,000 UNIT Q24H 01/14 1600 DC 01/15 (Porcine) IV 01/16 0900 1700 Sodium Chloride 500 ML Losartan Potassium 100 MG DAILY 01/13 1000 AC 01/15 PO 0935 Methotrexate 12.5 MG QWED 01/15 0700 AC 01/15 PO 0636 Potassium Chloride 20 MEQ DAILY 01/13 1000 AC 01/15 PO 0935 Risperidone 0.5 MG Q6P PRN 01/15 1400 AC PO Tamsulosin HCl 0.4 MG DAILY 01/13 1000 AC 01/15 PO 0935 Trazodone HCl 12.5 MG AT BEDTIME 01/15 2200 AC 01/15 PO 2110 Last 24 Hrs of Lab/Jesus Results Last 24 Hrs of Labs/Mics: Laboratory Tests 01/16/18 0622: APTT 75 H, CBC w Diff NO MAN DIFF REQ, RBC 4.08 L, MCV 100.1 H, MCH 33.9 H, MCHC 33.9, RDW 14.6 H, MPV 8.5, Gran % 65.2, Lymphocytes % 18.7 L, Monocytes % 11.2 H, Eosinophils % 4.1, Basophils % 0.8, Absolute Granulocytes 5.8, Absolute Lymphocytes 1.7, Absolute Monocytes 1.0 H, Absolute Eosinophils 0.4, Absolute Basophils 0.1 01/15/18 2109: APTT > 120 *H 01/15/18 1450: APTT 50 H Assessment/Plan Assessment: 72 year old man with multiple medical problems significant for multiple CVAs and MS brought in by ambulance for decreased responsiveness. Patient remains hemodynamically stable in rate controll atrial fibrillation overnight without any events. He tolerated the bedtime Trazodone well and did not require any PRN Risperidone. He was kept NPO in anticipation of the pacemaker placement this afternoon by Dr. Araiza; heparin was held in anticipation of this. 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 Syncope and collapse Pain Ratin Pain Location: None Pain Goal: Remain pain free Pain Plan: See assessment Tomorrow's Labs & Rationales: CBC-post op Marni Chang MD 01/16/18 1342: Attending MD Review Statement Attending Statement Attending MD Statement: examined this patient, discuss w/resident/PA/OPERATING ROOM TECH, agreed w/resident/PA/OPERATING ROOM TECH, discussed with family, reviewed EMR data (avail), discussed with case mgmt Attending Assessment/Plan: Patient is calmer today. He is nothing by mouth for a pacemaker at 1 PM. The heparin will be stopped 3-4 hours before that. He has slow A. fib with advanced conduction disease
[2018-01-16 08:24] LABS: ABSOLUTE BASOPHIL COUNT 0.1 /CUMM (0.0-0.2); ABSOLUTE EOSINOPHIL COUNT 0.4 /CUMM (0.0-0.7); ABSOLUTE GRANULOCYTE CT 5.8 /CUMM (1.4-6.5); ABSOLUTE LYMPH COUNT 1.7 /CUMM (1.2-3.4); BASOPHIL % 0.8 % (0.0-2.0); EOSINOPHIL % 4.1 % (0-5); GRANULOCYTE % 65.2 % (42.2-75.2); HEMATOCRIT 40.9 % (42-52); MEAN CORPUSCULAR HGB 33.9 PG (27.0-31.0); MEAN CORPUSCULAR HGB CONC 33.9 G/DL (33.0-37.0); MEAN CORPUSCULAR VOLUME 100.1 FL (80.0-94.0); MEAN PLATELET VOLUME 8.5 FL (7.4-10.4); PLATELET COUNT 263 /CUMM (130-400); RBC DISTRIBUTION WIDTH 14.6 % (11.5-14.5); RED BLOOD CELL CT 4.08 /CUMM (4.70-6.10)
[2018-01-16 08:30] LABS: PTT 75 SEC (25-37)
[2018-01-16 16:41] VITALS: BP 118/80
--- NOTE | 2018-01-16 17:40 | PN- Cardiology ---
Subjective Subjective: No complaints and back on telemetry from postanesthesia following successful implantation of dual-chamber ppm. Objective Vital Signs and I&Os Vital Signs Date Time Temp Pulse Resp B/P B/P Pulse O2 O2 Flow FiO2 Mean Ox Delivery Rate 01/16 1641 98.7 85 18 118/80 95 Room Air 01/16 0906 104 108/70 01/16 0906 104 108/70 01/16 0906 104 108/70 01/16 0645 97.5 77 16 108/70 94 Room Air 01/15 2228 99.1 78 18 102/60 92 Room Air Intake & Output 01/16 1600 01/16 0800 01/16 0000 01/15 1600 01/15 0800 01/15 0000 Intake Total 40 157.6 198 200 104 Output Total 2 Balance 40 157.6 198 198 104 Intake, IV 40 157.6 78 200 104 Intake, Oral 120 Number 1 1 Bowel Movements Output, Urine 2 Physical Exam: Well-developed, well-nourished elderly male stress. Vital signs: See above. HEENT: Normocephalic, atraumatic, EOMI, slightly jaundiced membranes. Neck: No JVD, no bruits. Lungs: Clear to auscultation bilaterally. Heart: S1, S2 with grade 2/6 systolic murmur best heard in the base. Abdomen: Soft, nontender, positive bowel sounds. Extremities: No edema. Pacemaker site left upper chest appears clean and dry. Current Medications: Current Medications Sig/Victor M Start time Last Medication Dose Route Stop Time Status Admin Amlodipine Besylate 10 MG DAILY 01/13 1000 AC 01/16 PO 09 Aspirin 81 MG DAILY 01/13 1000 AC 01/16 PO 09 Baclofen 20 MG TID 01/12 2200 AC 01/16 PO 1655 Folic Acid 1 MG DAILY 01/13 1000 AC 01/16 PO 0906 Furosemide 40 MG DAILY 01/13 1000 AC 01/16 PO 0906 Heparin Sodium 3,200 UNIT ONCE ONE 01/15 1800 DC 01/15 (Porcine) IV 01/15 1801 1830 Heparin Sodium 25,000 UNIT Q24H 01/14 1600 DC 01/15 (Porcine) IV 01/16 0900 1700 Sodium Chloride 500 ML Losartan Potassium 100 MG DAILY 01/13 1000 AC 01/16 PO 0906 Methotrexate 12.5 MG QWED 01/15 0700 AC 01/15 PO 0636 Patient Medication 1 ED ONE ONE 01/16 1415 [facility] ED 01/16 1416 Patient Medication 1 ED ONE ONE 01/16 1145 [facility] ED 01/16 1146 Potassium Chloride 20 MEQ DAILY 01/13 1000 AC 01/16 PO 0906 Risperidone 0.5 MG Q6P PRN 01/15 1400 AC PO Tamsulosin HCl 0.4 MG DAILY 01/13 1000 AC 01/16 PO 0906 Trazodone HCl 12.5 MG AT BEDTIME 01/15 2200 AC 01/15 PO 211 Results Last 48 Hrs of Labs/Mics: Laboratory Tests 01/16/18 0622: APTT 75 H, CBC w Diff NO MAN DIFF REQ, RBC 4.08 L, MCV 100.1 H, MCH 33.9 H, MCHC 33.9, RDW 14.6 H, MPV 8.5, Gran % 65.2, Lymphocytes % 18.7 L, Monocytes % 11.2 H, Eosinophils % 4.1, Basophils % 0.8, Absolute Granulocytes 5.8, Absolute Lymphocytes 1.7, Absolute Monocytes 1.0 H, Absolute Eosinophils 0.4, Absolute Basophils 0.1 01/15/18 2109: APTT > 120 *H 01/15/18 1450: APTT 50 H 01/15/18 0805: APTT > 120 *H 01/15/18 0615: CBC w Diff NO MAN DIFF REQ, RBC 4.02 L, MCV 99.7 H, MCH 33.3 H, MCHC 33.4, RDW 14.8 H, MPV 8.4, Gran % 73.7, Lymphocytes % 12.4 L, Monocytes % 11.2 H, Eosinophils % 2.2, Basophils % 0.5, Absolute Granulocytes 7.7 H, Absolute Lymphocytes 1.3, Absolute Monocytes 1.2 H, Absolute Eosinophils 0.2, Absolute Basophils 0.1 01/15/18 0020: APTT 58 H Assessment/Plan Assessment/Plan [id number]-o-w-m w/ hx previously elevated HgbA1c, HTN, multiple sclerosis, DVT, LVH w / DD, & symptomatic s/p bioprosthetic AVR March 2010, previous L-sided stroke w/ R hemiparesis, a 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 R-sided 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 occipital lobe stroke w/ "new" defecits that included transient confusion and a L homonymous hemianopsia, modestly elevated troponin I's felt 2/2 type II [place] & a paroxysm of A-flutter for which he was adm (02/25-03/02/2016) and started on the factor X a inhibitor Eliquis ( apixaban), given his significantly elevated [id number] score who was last hospitalized here for an episode of unresponsiveness (05/26-05/27/2016) ultimately felt 2/2 bradycardic-induced syncope w/ d/c of beta radha ( labetalol) at that time, who again presents following a prolonged (over one half hour) episode of decreased responsiveness & ECG evidence of AF w/ a "controlled " ventricular response w/o medications that typically slow AV conduction. We had previously documented A-flutter with a ventricular response rates of approximately 100 bpm, sinus bradycardia while on beta radha therapy, and now atrial fibrillation with both "controlled" ventricular response rate w/o medications that typically slow AV conduction suggesting the presence of significant underlying conduction disease and now more rapid ventricular response rates which should be treated. It was decided that Mr. Kwan could benefit from implantation of a permanent pacemaker and this recommendation was agreed upon by family members. The permanent dual-chamber pacemaker was successfully implanted implanted earlier today (, 01/16/2018) by our pacemaker specialist (Myron Araiza M.D., PhD) and the patient's anticoagulation will be restarted when Dr. Araiza feels it is safe to do so. Continue telemetry? Yes
[2018-01-16 22:45] VITALS: BP 122/72
[2018-01-17 06:59] VITALS: BP 140/92
--- NOTE | 2018-01-17 07:35 | PN- Housestaff ---
Sukhdeep Fox MD 01/17/18 0735: Subjective Follow-up For: Slow atrial fibrillation Tele-Events Since Last Visit: Atrial Fibrillation HR 140-160 between 1600 - 1800 01/16/18 HR 89-102 since 0000 Subjective: Patient seen and examined. He is seen lying flat in bed resting comfortably. He appears to be in no acute distress. He reports feeling well other than neck and back pain because of the hopsital bed. He denies any new issues. Overnight patient was confused causing his heart rate to elevate to 140-160 for which he was given IM Olanzapine. He appears calm, and is cooperative and orient to person and place, not time. Review of Systems Constitutional: Reports: see HPI. Objective Last 24 Hrs of Vital Signs/I&O Vital Signs Date Time Temp Pulse Resp B/P B/P Pulse O2 O2 Flow FiO2 Mean Ox Delivery Rate 01/17 0659 99.7 98 20 140/92 91 Room Air 01/16 2245 98.6 100 18 122/72 92 Room Air 01/16 1641 98.7 85 18 118/80 95 Room Air 01/16 0906 104 108/70 01/16 0906 104 108/70 01/16 0906 104 108/70 Intake & Output 01/17 1600 01/17 0800 01/17 0000 Intake Total 110 240 Output Total Balance 110 240 Intake, IV 10 Intake, Oral 100 240 Number 2 Bowel Movements Physical Exam General Appearance: Alert, Cooperative, No Acute Distress Other Physical Findings: GEN: thin, ill appearing elderly man in no acute distress HEENT: NCAT, PERRL, EOMI, anicteric sclera CARD: normal s1/s2; irregularly irregular PULM: CTA bilaterally ABD: Soft, NT, ND, BS+ NEURO: Awake and alert, CN II-XII grossly intact, right sided hemiparesis EXT: normal pulses, no edema Current Medications: Current Medications Sig/Victor M Start time Last Medication Dose Route Stop Time Status Admin Amlodipine Besylate 10 MG DAILY 01/13 1000 AC 01/16 PO 905 Aspirin 81 MG DAILY 01/13 1000 AC 01/16 PO 09 Baclofen 20 MG TID 01/120 AC 01/16 PO 2019 Dexmedetomidine HCl 200 MCG .STK-MED ONE 01/16 1307 DC IV 01/16 1308 Fentanyl Citrate 100 MCG .STK-MED ONE 01/16 1306 DC IM 01/16 1307 Folic Acid 1 MG DAILY 01/13 1000 AC 01/16 PO 0906 Furosemide 40 MG DAILY 01/13 1000 AC 01/16 PO 0906 Heparin Sodium 25,000 UNIT Q24H 01/14 1600 DC 01/15 (Porcine) IV 01/16 0900 1700 Sodium Chloride 500 ML Losartan Potassium 100 MG DAILY 01/13 1000 AC 01/16 PO 0906 Methotrexate 12.5 MG QWED 01/15 0700 AC 01/15 PO 0636 Midazolam HCl 2 MG .STK-MED ONE 01/16 1306 DC IM 01/16 1307 Olanzapine 2.5 MG ONCE ONE 01/16 1800 DC 01/16 IM 01/16 1801 1817 Patient Medication 1 ED ONE ONE 01/16 1415 DE Teaching ED 01/16 1416 Patient Medication 1 ED ONE ONE 01/16 1145 DE Teaching ED 01/16 1146 Potassium Chloride 20 MEQ DAILY 01/13 1000 AC 01/16 PO 0906 Risperidone 0.5 MG Q6P PRN 01/15 1400 AC PO Tamsulosin HCl 0.4 MG DAILY 01/13 1000 AC 01/16 PO 0906 Trazodone HCl 12.5 MG AT BEDTIME 01/15 2200 AC 01/16 PO 2020 Last 24 Hrs of Lab/Jesus Results Last 24 Hrs of Labs/Mics: Laboratory Tests 01/17/18 0626: CBC w Diff NO MAN DIFF REQ, RBC 4.32 L, MCV 100.0 H, MCH 33.2 H, MCHC 33.2, RDW 14.4, MPV 8.5, Gran % 79.0 H, Lymphocytes % 9.9 L, Monocytes % 9.2, Eosinophils % 1.7, Basophils % 0.2, Absolute Granulocytes 9.5 H, Absolute Lymphocytes 1.2, Absolute Monocytes 1.1 H, Absolute Eosinophils 0.2, Absolute Basophils 0 Assessment/Plan Assessment: 72 year old man with multiple medical problems significant for multiple CVAs and MS brought in by ambulance for decreased responsiveness. Patient had another episode of elevated heart rate overnight associated with agitation that improved with olanzapine. He otherwise remains hemodynamically stable. He is currently not on anticoagulation. Patient was found to be hypoxic to the high 80s this afternoon for which a stat chest x-ray was ordered that identified a large left sided pneumothorax. CT surgery and IR were informed whom performed a CT guided chest tube. Patient is to have interval chest x-rays ordered over weekend. Hold eliquis over weekend. 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 Syncope and collapse Pain Ratin Pain Location: None Pain Goal: Remain pain free Pain Plan: See assessment Tomorrow's Labs & Rationales: BROCK Chang MD,Marni 01/17/18 1220: Attending MD Review Statement Attending Statement Attending MD Statement: examined this patient, discuss w/resident/PA/CIVIL ENGINEERING MANAGER, agreed w/resident/PA/CIVIL ENGINEERING MANAGER, reviewed EMR data (avail), discussed with nursing, discussed with case mgmt, reviewed images Attending Assessment/Plan: Patient got his pacemaker placed yesterday. We are awaiting cardiology clearance regarding restarting his Eliquis. Overnight he was slightly agitated and his heart rate went up but now his resting heart rate appears to be 92-105. I spoken to Dr. Gross about this and he will evaluate whether he needs some rate control agents for the A. fib especially since he obviously has underlying tachybradycardia with sick sinus syndrome with rapid A. fib and bradycardia requiring a pacemaker.
--- NOTE | 2018-01-17 07:39 | Patient Discharge Instructions ---
Discharge Instructions General Discharge Information Special Instructions: Continue all your previous home medicaitons, especially your Eliquis. Start Taking Metoprolol and Trazodone as directed. Follow up with your overlay plastician Dr. Gross / Dr. Araiza after discharge. Obtain a repeat chest x-ray in 3-4 days. Acute Coronary Syndrome Inclusion Criteria At DC or during hospital stay patient has or had the following: ACS DIAGNOSIS No Discharge Core Measures Meds if any: Prescribed or Continued at Discharge Meds if any: NOT Prescribed or Continued at Discharge Congestive Heart Failure Inclusion Criteria At DC or during hospital stay patient has or had the following: CHF DIAGNOSIS No Discharge Core Measures Meds if any: Prescribed or Continued at Discharge Meds if any: NOT Prescribed or Continued at Discharge Cerebrovascular accident Inclusion Criteria At DC or during hospital stay patient has or had the following: CVA/TIA Diagnosis No Discharge Core Measures Meds if any: Prescribed or Continued at Discharge Meds if any: NOT Prescribed or Continued at Discharge Venous thromboembolism Inclusion Criteria VTE Diagnosis No VTE Type NONE VTE Confirmed by (Test) NONE Discharge Core Measures - Per Current guidelines, there needs to be overlap - treatment for the first 5 days of Warfarin therapy. - If discharged on Warfarin prior to 5 days of - overlap therapy, the patient will need to be - assessed for post discharge needs including - *Post discharge parental anticoagulation - *Warfarin and/or parental anticoagulation education - *Follow up date to check INR post discharge At least 5 days overlap therapy as Inpatient No Meds if any: Prescribed or Continued at Discharge Note: Overlap Therapy is Warfarin and Anticoagulant Meds if any: NOT Prescribed or Continued at Discharge
[2018-01-17 07:55] LABS: ABSOLUTE BASOPHIL COUNT 0 /CUMM (0.0-0.2); ABSOLUTE EOSINOPHIL COUNT 0.2 /CUMM (0.0-0.7); ABSOLUTE GRANULOCYTE CT 9.5 /CUMM (1.4-6.5); ABSOLUTE LYMPH COUNT 1.2 /CUMM (1.2-3.4); ABSOLUTE MONOCYTE COUNT 1.1 /CUMM (0.10-0.60); BASOPHIL % 0.2 % (0.0-2.0); EOSINOPHIL % 1.7 % (0-5); HEMATOCRIT 43.2 % (42-52); MEAN CORPUSCULAR HGB 33.2 PG (27.0-31.0); MEAN CORPUSCULAR HGB CONC 33.2 G/DL (33.0-37.0); MEAN PLATELET VOLUME 8.5 FL (7.4-10.4); PLATELET COUNT 248 /CUMM (130-400); RBC DISTRIBUTION WIDTH 14.4 % (11.5-14.5); RED BLOOD CELL CT 4.32 /CUMM (4.70-6.10)
--- NOTE | 2018-01-17 11:38 | RADIOLOGY REPORT ---
EXAMINATION: Pacemaker insertion fluoroscopic spot imaging CLINICAL INFORMATION: SPOT IMAGING PERFORMED DURING PACEMAKER INSERTION COMPARISON: Prior chest x-ray January 2018 TECHNIQUE: 2 spot images obtained FINDINGS: demonstrating dual leads from pacemaker insertion in region of right atrium and right ventricle respectively. Sternotomy wires noted. Valves replacement noted IMPRESSION: As above
--- NOTE | 2018-01-17 11:53 | PN- Cardiology ---
Subjective Subjective: No complaints. In atrial fibrillation with ventricular response rates ~110 bpm. Objective Vital Signs and I&Os Vital Signs Date Time Temp Pulse Resp B/P B/P Pulse O2 O2 Flow FiO2 Mean Ox Delivery Rate 01/17 926 90 140/90 01/17 09 90 140/90 01/17 09 90 140/90 01/17 0659 99.7 98 20 140/92 91 Room Air 01/16 2245 98.6 100 18 122/72 92 Room Air 01/16 1641 98.7 85 18 118/80 95 Room Air Intake & Output 01/17 1600 01/17 0800 01/17 0000 01/16 1600 01/16 0800 01/16 0000 Intake Total 110 240 40 157.6 198 Output Total Balance 110 240 40 157.6 198 Intake, IV 10 40 157.6 78 Intake, Oral 100 240 120 Number 2 Bowel Movements Physical Exam: Well-developed, well-nourished elderly male stress. Vital signs: See above. HEENT: Normocephalic, atraumatic, EOMI, slightly jaundiced membranes. Neck: No JVD, no bruits. Lungs: Clear to auscultation bilaterally. Heart: S1, S2 with grade 2/6 systolic murmur best heard in the base. Abdomen: Soft, nontender, positive bowel sounds. Extremities: No edema. Current Medications: Current Medications Sig/Victor M Start time Last Medication Dose Route Stop Time Status Admin Acetaminophen 650 MG Q4P PRN 01/17 0930 AC 01/17 PO 0924 Amlodipine Besylate 10 MG DAILY 01/13 1000 AC 01/17 PO 0926 Aspirin 81 MG DAILY 01/13 1000 AC 01/17 PO 0925 Baclofen 20 MG TID 01/12 2200 AC 01/17 PO 0926 Folic Acid 1 MG DAILY 01/13 1000 AC 01/17 PO 0926 Furosemide 40 MG DAILY 01/13 1000 AC 01/17 PO 0926 Losartan Potassium 100 MG DAILY 01/13 1000 AC 01/17 PO 0925 Methotrexate 12.5 MG QWED 01/15 0700 AC 01/15 PO 0636 Olanzapine 2.5 MG ONCE ONE 01/16 1800 DC 01/16 IM 01/16 1801 1817 Patient Medication 1 ED ONE ONE 01/16 1415 DC Teaching ED 01/16 1416 Potassium Chloride 20 MEQ DAILY 01/13 1000 AC 01/17 PO 0926 Risperidone 0.5 MG Q6P PRN 01/15 1400 AC PO Tamsulosin HCl 0.4 MG DAILY 01/13 1000 AC 01/17 PO 09 Trazodone HCl 12.5 MG AT BEDTIME 01/15 2200 AC 01/16 PO 2019 Results Last 48 Hrs of Labs/Mics: Laboratory Tests 01/17/18 0626: CBC w Diff NO MAN DIFF REQ, RBC 4.32 L, MCV 100.0 H, MCH 33.2 H, MCHC 33.2, RDW 14.4, MPV 8.5, Gran % 79.0 H, Lymphocytes % 9.9 L, Monocytes % 9.2, Eosinophils % 1.7, Basophils % 0.2, Absolute Granulocytes 9.5 H, Absolute Lymphocytes 1.2, Absolute Monocytes 1.1 H, Absolute Eosinophils 0.2, Absolute Basophils 0 01/16/18 0622: APTT 75 H, CBC w Diff NO MAN DIFF REQ, RBC 4.08 L, MCV 100.1 H, MCH 33.9 H, MCHC 33.9, RDW 14.6 H, MPV 8.5, Gran % 65.2, Lymphocytes % 18.7 L, Monocytes % 11.2 H, Eosinophils % 4.1, Basophils % 0.8, Absolute Granulocytes 5.8, Absolute Lymphocytes 1.7, Absolute Monocytes 1.0 H, Absolute Eosinophils 0.4, Absolute Basophils 0.1 01/15/18 2109: APTT > 120 *H 01/15/18 1450: APTT 50 H Recent Imaging Studies: CXR 01/16/2018: Dual leads from pacemaker insertion in region of right atrium & right ventricle. Sternotomy wires noted. Valve replacement noted Assessment/Plan Assessment/Plan [id number] w/ hx previously elevated HgbA1c, HTN, multiple sclerosis, DVT, LVH w / DD, & symptomatic s/p bioprosthetic AVR March 2010, previous L-sided stroke w/ R hemiparesis, a newer R-sided [employer] occipital lobe stroke w/ "new" defecits that included transient confusion and a L homonymous hemianopsia, modestly elevated troponin I's felt 2/2 type II TX & a paroxysm of A-flutter for which he was adm (02/25-03/02/2016) and started on the factor X a inhibitor Eliquis ( apixaban), given his significantly elevated [id number] score who was last hospitalized here for an episode of unresponsiveness (05/26-05/27/2016) ultimately felt 2/2 bradycardic-induced syncope w/ d/c of beta radha ( labetalol) at that time, who again presents following a prolonged (over one half hour) episode of decreased responsiveness & ECG evidence of AF w/ a "controlled " ventricular response w/o medications that typically slow AV conduction. We had previously documented A-flutter with a ventricular response rates of approximately 100 bpm, sinus bradycardia while on beta radha therapy, and now atrial fibrillation with both "controlled" ventricular response rate w/o medications that typically slow AV conduction suggesting the presence of significant underlying conduction disease and now more rapid ventricular response rates. It was decided that Mr. Kwan would benefit from implantation of a permanent pacemaker and this recommendation was agreed upon by family members. The permanent dual-chamber pacemaker was successfully implanted on 01/16/2018. Anticoagulation should be restarted tomorrow (01/18/2018). Can restart the patient's labetalol at 100 mg twice daily to improve his blood pressure and ventricular response. Anticipate discharge soon. Continue telemetry? Yes
[2018-01-17 14:30] VITALS: BP 96/64
--- NOTE | 2018-01-17 14:55 | RADIOLOGY REPORT ---
EXAMINATION: XR PORTABLE CHEST CLINICAL INFORMATION: 72-year-old male with new onset hypoxia status post pacemaker placement yesterday. COMPARISON: 01/12/2018 and 01/16/2018 TECHNIQUE: Portable frontal view of the chest was obtained. FINDINGS: Lungs are hypoinflated and left diaphragm remains elevated. There is a left-sided pneumothorax. The visceral pleural line projects approximately 4 cm bow below the level of the inferior margin of the left second rib, compared to 2 cm on 01/16/2018. There is subpulmonic air, as well. The pneumothorax appears to occupy at least 35-40% of the left hemithorax. The increased opacity at the left lung base is likely due to worsening atelectasis. The right lung is clear. No pulmonary edema or pleural effusion. Mild cardiomegaly with dual-chamber pacemaker in place. The leads extending to the level of the right atrium and right ventricle. Sternotomy wires are intact. Aortic valve is replaced. Skeletal findings include old, healed fracture of right posterolateral seventh rib. IMPRESSION: Left pneumothorax has increased in size. Associated worsening atelectasis in left lung base. The critical test result was discussed Dr. Brown Mccoy at 2:50 pm on 01/17/2018 and it was ascertained that the content and the importance of the findings was understood at the time of the direct communication.
--- NOTE | 2018-01-17 16:12 | Event Note ---
Event Note Event Note: Situation Patient acutely hypxoxic on POD#1 s/p PPM placement Background 72 year old man with multiple medical problems significant for a fib on eliquis and CVA with right sided hemiparesis admitted aftering because found unresponsive with slow atrial fibrillation. Patient was placed with a permanent pacemaker on 2 and found to be hypoxic to the 80's on POD#1. Stat chest x- ray demonstrated a large 40% left sided pneumonthorax for which cardiothoracic surgery and interventional radiology were consulted. Assessment / Recommendations: -Chest Tube placement -Post procedure CXR -Continue to hold anticoagulation -Monitor vitals and oxygenation
--- NOTE | 2018-01-17 17:02 | CT SCAN REPORT ---
CLINICAL HISTORY: This patient is a 72 years old Male with iatrogenic left pneumothorax after pacemaker placement. A nonlocking left pleural catheter is requested. PROCEDURES: 1. Limited CT of the chest. 2. Placement of a 10 Fr nonlocking left pleural tube under CT-guidance. PHYSICIANS: Dr. Mary Arambula (attending) MONITORING: The procedure was performed with continuous blood pressure, pulse oximetry as well as heartrate monitoring was performed by an independent registered nurse. MEDICATIONS: 1. Versed 0 mg and fentanyl 25 IV mcg were administered. 2. Lidocaine 1%, 7 mL, SQ. COMPLICATIONS: None ESTIMATED BLOOD LOSS: <5 mL SPECIMENS: None IMPLANT: 10 Korean nonlocking pleural tube CONTRAST: None TOTAL DLP: 347.42 mGy-cm SITE MARKING: As part of the preprocedure verification policy, a site marking procedure was initiated. Due to the nature the procedure, the insertion site could not be predetermined thus invoking the policy of exemption to site laterality and marking. Insertion site marking was performed in the procedure room in conjunction with imaging confirmation. PROCEDURE NOTE: Informed consent was obtained from the patient prior to the procedure. During this process, the procedure and potential alternatives were explained along with the intended outcome and benefits. The risks of the procedure, including the possibility of an unsuccessful procedure, as well as the risk of not doing the procedure, were discussed. The patient was given the opportunity to ask questions regarding the procedure and appeared competent to make decisions. A signed consent form documenting this discussion was placed in the medical record. A time-out procedure was performed. The patient was placed in the supine position on the CT table. A limited CT of the chest was performed to localize the collection and choose appropriate needle access entry point and trajectory. The left chest was prepped and draped in usual sterile fashion. Elements of maximal sterile barrier technique followed including use of cap, mask, sterile gown, sterile gloves, a sterile full body drape and hand hygiene. Also followed skin preparation with 2% chlorhexidine for cutaneous antisepsis, and sterile ultrasound preparation with sterile gel and probe cover when applicable. The skin and subcutaneous tissues were anesthetized with lidocaine. Under CT-guidance, a 5-Fr One Step catheter was advanced into the left pleural space. A 0.035 in Amplatz super stiff wire was advanced through the needle and coiled in the left pleural space. The needle was removed and exchanged for serial fascial dilators followed by a 10-Fr nonlocking catheter. The wire and inner stiffener were removed. Catheter position within the fluid collection was confirmed by CT evaluation. The catheter was sutured to skin with 0 silk suture and a StatLock device. The tube was placed to waterseal. The patient tolerated the procedure well. FINDINGS: 1. Large left pneumothorax. 2. Successful placement of a 10-Fr nonlocking left pleural tube. IMPRESSION: Successful placement of a nonlocking left pleural tube with successful evacuation of the large left pneumothorax. PLAN: 1. The patient was stable after the procedure and was transferred to a hospital room. 2. The tube should be transferred from waterseal to low continuous suction.
--- NOTE | 2018-01-17 17:28 | Cons- Thoracic Surgery ---
General Information and HPI Consulting Request Date of Consult: 01/17/18 Requested By: Bernardo ZUNIGA,Marni Alfonso Reason for Consult: Postprocedural pneumothorax Source of Information: patient, family, old records, PCP Exam Limitations: no limitations History of Present Illness: The patient is a 72-year-old gentleman who underwent permanent pacemaker placement yesterday because of symptomatic bradycardia. This morning he was noted to have desaturations was placed on oxygen. A chest x-ray showed a significant pneumothorax on the left side which is the side of pacemaker placement. Thoracic surgical evaluation is asked for help and management and treatment Allergies/Medications Allergies: Coded Allergies: NO KNOWN ALLERGIES (02/27/16) Home Med List: Acetaminophen (Athenol) 325 MG TABLET 1 TAB PO BID PAIN (Reported) Amlodipine Besylate 10 MG TABLET 1 TAB PO DAILY HYPERTENSION Apixaban (Eliquis) 2.5 MG TABLET 1 TAB PO BID BLOOD THINNER (Reported) Aspirin (Aspirin*) 81 MG TAB.CHEW 1 TAB PO DAILY HEART/BLOOD (Reported) Baclofen 20 MG TABLET 1 TAB PO TID MUSCLE SPASMS (Reported) Cholecalciferol (Vitamin D3) (Vitamin D) (Unknown Strength) TABLET (Unknown Dose) PO BID SUPPLEMENT (Reported) Folic Acid 1 MG TABLET 1 TAB PO DAILY SUPPLEMENT (Reported) Furosemide (Lasix) 20 MG TABLET 2 TAB PO DAILY DIURETIC (Reported) Losartan (Cozaar) 100 MG TABLET 1 TAB PO DAILY HTN (Reported) Methotrexate 2.5 MG TABLET 5 TAB PO QWED MS (Reported) Potassium Chloride 20 MEQ TAB.ER.PRT 1 TAB PO DAILY SUPPLEMENT (Reported) Tamsulosin HCl (Flomax) 0.4 MG CAP.ER.24H 1 CAP PO DAILY PROSTATE (Reported) Current Medications: Current Medications Sig/Victor M Start time Last Medication Dose Route Stop Time Status Admin Acetaminophen 650 MG Q4P PRN 01/17 0930 AC 01/17 PO 0924 Amlodipine Besylate 10 MG DAILY 01/13 1000 AC 01/17 PO 09 Aspirin 81 MG DAILY 01/13 1000 AC 01/17 PO 09 Baclofen 20 MG TID 01/12 2200 AC 01/17 PO 1701 Fentanyl Citrate 0 .STK-MED ONE 01/17 1516 DC .ROUTE Folic Acid 1 MG DAILY 01/13 1000 AC 01/17 PO 09 Furosemide 40 MG DAILY 01/13 1000 AC 01/17 PO 09 Losartan Potassium 100 MG DAILY 01/13 1000 AC 01/17 PO 0925 Methotrexate 12.5 MG QWED 01/15 0700 AC 01/15 PO 0636 Olanzapine 2.5 MG ONCE ONE 01/16 1800 DC 01/16 IM 01/16 1801 1817 Potassium Chloride 20 MEQ DAILY 01/13 1000 AC 01/17 PO 0926 Risperidone 0.5 MG Q6P PRN 01/15 1400 AC PO Tamsulosin HCl 0.4 MG DAILY 01/13 1000 AC 01/17 PO 0926 Trazodone HCl 12.5 MG AT BEDTIME 01/15 2200 AC 01/16 PO 2020 Past History Medical History Blood Transfusion Hx: No Neurological: CVA, multiple sclerosis EENT: NONE Cardiovascular: hypertension, paroxysmal aflutter AVR 2009 Respiratory: NONE Gastrointestinal: NONE Hepatic: NONE Renal: benign prost hyperplasia Musculoskeletal: NONE Psychiatric: NONE Endocrine: NONE Blood Disorders: DVT ON ELIQUIS Cancer(s): NONE EQUIP TECH/Reproductive: NONE Surgical History Pertinent Surgical History: aortic valve replacement 2009 Family History Relations & Conditions If Any: FATHER Valvular heart disease Relation not specified for: *No pertinent family history Psychosocial History Where Do You Live? Home Who Do You Live With? self Services at Home: Nursing Primary Language: Telugu Smoking Status: Former Smoker ETOH Use: denies use Illicit Drug Use: denies illicit drug use Functional Ability Ambulation: non-ambulatory, wheelchair bound but is able to transfer by himself Review of Systems Review of Systems: Review systems is notable currently for no significant respiratory issues. The patient is breathing comfortably now postprocedure. He is having no chest pain. He had no syncope or presyncope. The Respess 12 point review of systems is unremarkable. Exam & Diagnostic Data Vital Signs and I&O Vital Signs Date Time Temp Pulse Resp B/P B/P Pulse O2 O2 Flow FiO2 Mean Ox Delivery Rate 01/17 1713 95 Non 4.0L ReBreather 01/17 1430 99.2 98 22 96/64 91 Nasal 2.0L Cannula 01/17 926 90 140/90 01/17 09 90 140/90 01/17 09 90 140/90 01/17 0659 99.7 98 20 140/92 91 Room Air 01/16 2245 98.6 100 18 122/72 92 Room Air Intake & Output 01/17 1600 02/16 0800 01/17 0000 01/16 1600 01/16 0800 01/16 0000 Intake Total 500 110 240 40 157.6 198 Output Total Balance 500 110 240 40 157.6 198 Intake, IV 10 40 157.6 78 Intake, Oral 500 100 240 120 Number 2 Bowel Movements Physical Exam: On physical examination he appears well. His skin is warm and well perfused no suspicious lesions noted. The sclerae are anicteric and his mucous membranes are moist. There is no cervical or subclavicular lymphadenopathy. His breath sounds are clear bilaterally with no wheezes rhonchi noted. The cardiac exam shows a regular rhythm and rate with no murmurs or sounds. He has good crisp heart tones from his previous aortic valve replacement. There is a thoracic vent catheter in place and there is no air leak. There is no subcutaneous emphysema. His abdomen is soft and nontender with no masses. The periphery shows no cyanosis clubbing or edema. His neurologic exam is grossly normal for motor and sensory function. Last 24 Hours of Labs: Laboratory Tests 01/17 01/17 1505 0626 Coagulation PT Cancelled INR Cancelled Hematology CBC w Diff NO MAN DIFF REQ WBC (4.8 - 10.8 /CUMM) 12.0 H RBC (4.70 - 6.10 /CUMM) 4.32 L Hgb (14.0 - 18.0 G/DL) 14.3 Hct (42 - 52 %) 43.2 MCV (80.0 - 94.0 FL) 100.0 H MCH (27.0 - 31.0 PG) 33.2 H MCHC (33.0 - 37.0 G/DL) 33.2 RDW (11.5 - 14.5 %) 14.4 Plt Count (130 - 400 /CUMM) 248 MPV (7.4 - 10.4 FL) 8.5 Gran % (42.2 - 75.2 %) 79.0 H Lymphocytes % (20.5 - 51.1 %) 9.9 L Monocytes % (1.7 - 9.3 %) 9.2 Eosinophils % (0 - 5 %) 1.7 Basophils % (0.0 - 2.0 %) 0.2 Absolute Granulocytes (1.4 - 6.5 /CUMM) 9.5 H Absolute Lymphocytes (1.2 - 3.4 /CUMM) 1.2 Absolute Monocytes (0.10 - 0.60 /CUMM) 1.1 H Absolute Eosinophils (0.0 - 0.7 /CUMM) 0.2 Absolute Basophils (0.0 - 0.2 /CUMM) 0 Imaging Results: Chest x-ray yesterday post procedure shows a small apical pneumothorax on the left side. Unfortunately the reading of this chest x-ray as the reading of the intraoperative fluoroscopy so no mention is made and the reading of the pneumothorax. The chest x-ray today documents an increase in size in the pneumothorax. CT-guided catheter placement shows reexpansion of the left lung. Assessment/Plan Assessment/Plan 72-year-old gentleman status post pacemaker with a procedural related pneumothorax. He is clinically stable right now the lung is reexpanded and that does not appear to be nearly. Gen. guidelines and thoracic surgery recommend a minimum of 48 hours of chest tube or catheter reexpansion on suction prior to any removal. I think this would bring us the weekend and I have some told the patient and the house staff that the plan will be for the device to remain as is until Saturday morning. We will follow him through the weekend but I anticipate no further issues. Decision regarding restarting Eliquis can be made at any time and is not depending upon the stress catheter. Consult Acknowledgment - Thank you for your consult request.
[2018-01-17 22:56] VITALS: BP 116/62
--- NOTE | 2018-01-18 04:09 | RADIOLOGY REPORT ---
EXAMINATION: XR PORTABLE CHEST CLINICAL INFORMATION: Status post chest tube for pneumothorax, assess for change COMPARISON: 01/17/2018 TECHNIQUE: Portable frontal view of the chest was obtained. FINDINGS: Chest tube catheter overlies the medial/basilar left hemithorax. Left-sided pacemaker lead tips overlie the right atrium and right ventricle. Sternal wires are present. The left lung is hypoinflated. No residual left-sided pneumothorax is seen. There is a persistent region of opacity at the lateral left base. The right lung appears well expanded and clear. The cardiomediastinal silhouette is stable. Calcification is present at the aortic arch. No acute osseous findings are seen. IMPRESSION: Left chest tube catheter in place, with no appreciable residual pneumothorax. Lateral left basilar opacity which may reflect atelectasis and/or consolidation.
[2018-01-18 05:46] VITALS: BP 110/62
[2018-01-18 08:17] LABS: ABSOLUTE BASOPHIL COUNT 0 /CUMM (0.0-0.2); ABSOLUTE EOSINOPHIL COUNT 0.3 /CUMM (0.0-0.7); ABSOLUTE GRANULOCYTE CT 7.7 /CUMM (1.4-6.5); ABSOLUTE LYMPH COUNT 1.2 /CUMM (1.2-3.4); ABSOLUTE MONOCYTE COUNT 1.2 /CUMM (0.10-0.60); BASOPHIL % 0.3 % (0.0-2.0); EOSINOPHIL % 3.2 % (0-5); GRANULOCYTE % 73.5 % (42.2-75.2); MEAN CORPUSCULAR HGB 33.8 PG (27.0-31.0); MEAN CORPUSCULAR HGB CONC 33.8 G/DL (33.0-37.0); MEAN CORPUSCULAR VOLUME 99.9 FL (80.0-94.0); MEAN PLATELET VOLUME 8.6 FL (7.4-10.4); PLATELET COUNT 219 /CUMM (130-400); RBC DISTRIBUTION WIDTH 14.7 % (11.5-14.5); RED BLOOD CELL CT 3.79 /CUMM (4.70-6.10); WHITE BLOOD CELL COUNT 10.4 /CUMM (4.8-10.8)
[2018-01-18 08:49] LABS: HEMATOCRIT 37.9 % (42-52)
--- NOTE | 2018-01-18 09:09 | PN- Thoracic Surgery ---
See Addendum Subjective Subjective: feeling ok, denies cp/sob. no pain at CT site Objective Vital Signs and I&Os Vital Signs Date Time Temp Pulse Resp B/P B/P Pulse O2 O2 Flow FiO2 Mean Ox Delivery Rate 01/18 0546 98.3 94 22 110/62 94 Nasal 4.0L Cannula 01/18 0000 96 Nasal 4.0L Cannula 01/17 2256 98.6 92 20 116/62 96 Nasal 4.0L Cannula 01/17 1713 95 Non 4.0L ReBreather 01/17 1430 99.2 98 22 96/64 91 Nasal 2.0L Cannula 01/17 0926 90 140/90 01/17 0926 90 140/90 01/17 0925 90 140/90 Intake & Output 01/18 1600 01/18 0800 01/18 0000 01/17 1600 01/17 0800 01/17 0000 Intake Total 400 250 500 110 240 Output Total Balance 400 250 500 110 240 Intake, IV 10 Intake, Oral 400 250 500 100 240 Number 1 2 Bowel Movements Patient 173 lb Weight Physical Exam: gen- nad card- s1s2 irreg irreg pulm- bs throughout, poor inspiratory effort. L anterior IR CT in place, site dressed nontender, tube to lcws- no AL, minimal strawcolored output. Results Recent Imaging Studies: CXR pending CXR yesterday postprocedure: no PTX Assessment/Plan Assessment/Plan A- 72yoM with multiple medical comorbidities, Postprocedure day 1 sp Left anterior tube placement by IR for iatrogenic PTX sp ppm placement, with resolution of PTX on postprocedure CXR yesterday. P- continue CT to ws, likely through weekend. fu am CXR. will dw attending Core Measures Venous Thromboembolism VTE Risk Factors Age>40 No Mechanical VTE Prophylaxis d/t N/A MechProphylax Ordered No VTE Pharm Prophylaxis d/t NA PharmProphylax ordered
--- NOTE | 2018-01-18 13:02 | PN- Cardiology ---
Subjective Subjective: Patient is resting comfortably and eating his lunch. Denies dyspnea or chest pain. Objective Vital Signs and I&Os Vital Signs Date Time Temp Pulse Resp B/P B/P Pulse O2 O2 Flow FiO2 Mean Ox Delivery Rate 01/18 1047 90 140/90 01/18 1047 90 140/90 01/18 1045 90 140/90 01/18 0546 98.3 94 22 110/62 94 Nasal 4.0L Cannula 01/18 0000 96 Nasal 4.0L Cannula 01/17 2256 98.6 92 20 116/62 96 Nasal 4.0L Cannula 01/17 1713 95 Non 4.0L ReBreather 01/17 1430 99.2 98 22 96/64 91 Nasal 2.0L Cannula Intake & Output 01/18 1600 01/18 0800 01/18 0000 01/17 1600 01/17 0800 01/17 0000 Intake Total 400 250 500 110 240 Output Total Balance 400 250 500 110 240 Intake, IV 10 Intake, Oral 400 250 500 100 240 Number 1 2 Bowel Movements Patient 173 lb Weight Physical Exam: General: no apparent distress. Alert. On nasal cannula. Eyes: No obvious scleral icterus. HEENT: No jugular venous distention or abnormal jugular venous pulsations. Cardiovascular: Normal intensity S1/S2. Left-sided the pacemaker site with no swelling Respiratory: No rales or rhonchi, left-sided chest tube in place Abdomen: Soft, nontender with no guarding or rebound tenderness. Musculoskeletal: No clubbing or cyanosis noted Skin: Warm Neurologic: No gross focal deficits noted. Current Medications: Current Medications Sig/Victor M Start time Last Medication Dose Route Stop Time Status Admin Acetaminophen 650 MG Q4P PRN 01/17 0930 AC 01/17 PO 0924 Amlodipine Besylate 10 MG DAILY 01/13 1000 AC 01/18 PO 1047 Aspirin 81 MG DAILY 01/13 1000 AC 01/18 PO 1048 Baclofen 20 MG TID 01/12 2200 AC 01/18 PO 1046 Fentanyl Citrate 0 .STK-MED ONE 01/17 1516 DC .ROUTE Folic Acid 1 MG DAILY 01/13 1000 AC 01/18 PO 1047 Furosemide 40 MG DAILY 01/13 1000 AC 01/18 PO 1047 Losartan Potassium 100 MG DAILY 01/13 1000 AC 01/18 PO 1047 Methotrexate 12.5 MG QWED 01/15 0700 AC 01/15 PO 0636 Potassium Chloride 20 MEQ DAILY 01/13 1000 AC 01/18 PO 1048 Risperidone 0.5 MG Q6P PRN 01/15 1400 AC 01/18 PO 1037 Tamsulosin HCl 0.4 MG DAILY 01/13 1000 AC 01/18 PO 1045 Trazodone HCl 12.5 MG AT BEDTIME 01/15 2200 AC 01/17 PO 2112 Results Last 48 Hrs of Labs/Mics: Laboratory Tests 01/18/18 0620: CBC w Diff NO MAN DIFF REQ, RBC 3.79 L, MCV 99.9 H, MCH 33.8 H, MCHC 33.8, RDW 14.7 H, MPV 8.6, Gran % 73.5, Lymphocytes % 11.1 L, Monocytes % 11.9 H, Eosinophils % 3.2, Basophils % 0.3, Absolute Granulocytes 7.7 H, Absolute Lymphocytes 1.2, Absolute Monocytes 1.2 H, Absolute Eosinophils 0.3, Absolute Basophils 0 01/17/18 1505: PT Cancelled, INR Cancelled 01/17/18 0626: CBC w Diff NO MAN DIFF REQ, RBC 4.32 L, MCV 100.0 H, MCH 33.2 H, MCHC 33.2, RDW 14.4, MPV 8.5, Gran % 79.0 H, Lymphocytes % 9.9 L, Monocytes % 9.2, Eosinophils % 1.7, Basophils % 0.2, Absolute Granulocytes 9.5 H, Absolute Lymphocytes 1.2, Absolute Monocytes 1.1 H, Absolute Eosinophils 0.2, Absolute Basophils 0 Recent Imaging Studies: Telemetry tracings were personally reviewed shows atrial fibrillation CXR: IMPRESSION: Left chest tube catheter in place, with no appreciable residual pneumothorax. Lateral left basilar opacity which may reflect atelectasis and/or consolidation. Assessment/Plan Assessment/Plan 1. Atrial fibrillation 2. Status post permanent pacemaker, complicated by pneumothorax requiring chest tube 3. Hypertension 4. History of bioprosthetic aortic valve 5. History of CVA 6. Syncope Patient is currently hemodynamically stable and resting comfortably. Chest tube management per CT surgery. Anticoagulation currently on hold. He is not currently tachycardic. Gerald Rubio MD [facility] Continue telemetry? Yes
--- NOTE | 2018-01-18 13:05 | PN- Att Addend ---
Attending Addendum Attending Brief Note 72-year-old male with past medical history significant for MS and currently on methotrexate and baclofen has been admitted to the floor initially for syncope in the setting of A. 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 Patient initially was on Eliquis which was then transitioned over to IV heparin for pacemaker placement but currently off of anticoagulation given chest tube placement. Patient was seen and examined on the bedside and the plan of care discussed thoroughly with the patient and his ex . Patient will continue to have the thoracic tube over the weekend and restarting his Eliquis will be discussed with the certified surgical tech/first assistant. Last chest x-rays showed chest tube in place with no appreciable residual pneumothorax with some mild left basilar opacity that could be atelectasis/consolidation. We will follow further cardiology recommendations.
--- NOTE | 2018-01-18 13:25 | PN- Housestaff ---
Subjective Follow-up For: a fibrillation Complaints: no complaints Subjective: I have seen and examined the patient today morning, he seems to be doing good, no new complaints. Review of Systems Constitutional: Reports: see HPI. Objective Last 24 Hrs of Vital Signs/I&O Vital Signs Date Time Temp Pulse Resp B/P B/P Pulse O2 O2 Flow FiO2 Mean Ox Delivery Rate 01/18 2239 97.8 102 24 148/90 92 Nasal 4.0L Cannula 01/18 2006 4.0 01/18 1444 98.3 88 20 116/76 96 Nasal 4.0L Cannula 01/18 1047 90 140/90 01/18 1047 90 140/90 01/18 1045 90 140/90 01/18 0830 Nasal 4.0L Cannula 01/18 0546 98.3 94 22 110/62 94 Nasal 4.0L Cannula 01/18 0000 96 Nasal 4.0L Cannula Intake & Output 01/18 1600 01/18 0800 01/18 0000 Intake Total 600 400 250 Output Total Balance 600 400 250 Intake, Oral 600 400 250 Number 1 Bowel Movements Patient 78.642 kg Weight Physical Exam General Appearance: Alert, Oriented X3, Cooperative, No Acute Distress Skin Temp/Moisture Exam: Cool/Dry Neck: Supple, No JVD Cardiovascular: Normal S1, Normal S2, No Murmurs Lungs: Clear to Auscultation, Normal Air Movement Abdomen: Normal Bowel Sounds, Soft, No Tenderness Neurological: Strength at 5/5 X4 Ext, Normal Tone, Sensation Intact, Cranial Nerves 3-12 NL Extremities: No Clubbing, No Cyanosis Current Medications: Current Medications Sig/Victor M Start time Last Medication Dose Route Stop Time Status Admin Acetaminophen 650 MG Q4P PRN 01/17 0930 AC 01/18 PO 2005 Amlodipine Besylate 10 MG DAILY 01/13 1000 AC 01/18 PO 1047 Aspirin 81 MG DAILY 01/13 1000 AC 01/18 PO 1048 Baclofen 20 MG TID 01/12 2200 AC 01/18 PO 2005 Folic Acid 1 MG DAILY 01/13 1000 AC 01/18 PO 1047 Furosemide 40 MG DAILY 01/13 1000 AC 01/18 PO 1047 Losartan Potassium 100 MG DAILY 01/13 1000 AC 01/18 PO 1047 Methotrexate 12.5 MG QWED 01/15 0700 AC 01/15 PO 0636 Potassium Chloride 20 MEQ DAILY 01/13 1000 AC 01/18 PO 1048 Risperidone 0.5 MG Q6P PRN 01/15 1400 AC 01/18 PO 1037 Tamsulosin HCl 0.4 MG DAILY 01/13 1000 AC 01/18 PO 1045 Trazodone HCl 12.5 MG AT BEDTIME 01/15 2200 AC 01/18 PO 2005 Last 24 Hrs of Lab/Jesus Results Last 24 Hrs of Labs/Mics: Laboratory Tests 01/18/18 0620: CBC w Diff NO MAN DIFF REQ, RBC 3.79 L, MCV 99.9 H, MCH 33.8 H, MCHC 33.8, RDW 14.7 H, MPV 8.6, Gran % 73.5, Lymphocytes % 11.1 L, Monocytes % 11.9 H, Eosinophils % 3.2, Basophils % 0.3, Absolute Granulocytes 7.7 H, Absolute Lymphocytes 1.2, Absolute Monocytes 1.2 H, Absolute Eosinophils 0.3, Absolute Basophils 0 Lines/Diet/Fluids Restraints: none Assessment/Plan Assessment: This is a 72 year old man with multiple medical problems significant for multiple CVAs and MS brought in by ambulance for decreased responsiveness. Patient had another episode of elevated heart rate overnight associated with agitation that improved with olanzapine. He otherwise remains hemodynamically stable. He is currently not on anticoagulation. Patient was found to be hypoxic to the high 80s which a stat chest x-ray was ordered that identified a large left sided pneumothorax. CT surgery and IR were informed whom performed a CT guided chest tube. 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 Syncope and collapse 2. Leukocytosis 3. Episode of syncope Pain Ratin Pain Location: .. Pain Goal: Remain pain free Pain Plan: current plan Tomorrow's Labs & Rationales: .. Consulting Request: Consulting Specialty: Cardiology
--- NOTE | 2018-01-18 14:19 | RADIOLOGY REPORT ---
EXAMINATION: XR PORTABLE CHEST CLINICAL INFORMATION: Chest tube placement for pneumothorax COMPARISON: 01/17/2018 chest x-ray and chest CT scan TECHNIQUE: Portable AP view of the chest was obtained. FINDINGS: The x-ray is taken with rotation toward the left side. Stable cardiomediastinal silhouette. Cardiac pacemaker is in place with leads projecting over the right atrium and right ventricle. Median sternotomy wires are in place and seem to be intact. There is a pigtail catheter in the left hemithorax with its tip projecting at the level of left hilum. Opacity in the left lower thorax with obscuration of the cardiac and left diaphragmatic borders noted, unchanged since the most recent chest x-ray. This could represent left lower lobe atelectasis and possible associated pleural effusion. Trace pneumothorax at the thoracic apex noted. The right lung is clear. No right-sided pneumothorax. IMPRESSION: Trace left apical pneumothorax in the presence of chest tube. Persistent opacity at the left lung base.
[2018-01-18 14:44] VITALS: BP 116/76
[2018-01-18 22:39] VITALS: BP 148/90
[2018-01-19 06:27] VITALS: BP 142/92
[2018-01-19 07:46] LABS: ABSOLUTE BASOPHIL COUNT 0 /CUMM (0.0-0.2); ABSOLUTE EOSINOPHIL COUNT 0.2 /CUMM (0.0-0.7); ABSOLUTE GRANULOCYTE CT 9.1 /CUMM (1.4-6.5); ABSOLUTE LYMPH COUNT 1.2 /CUMM (1.2-3.4); ABSOLUTE MONOCYTE COUNT 1.5 /CUMM (0.10-0.60); BASOPHIL % 0.1 % (0.0-2.0); GRANULOCYTE % 75.6 % (42.2-75.2); MEAN CORPUSCULAR HGB 33.5 PG (27.0-31.0); MEAN CORPUSCULAR HGB CONC 33.9 G/DL (33.0-37.0); MEAN CORPUSCULAR VOLUME 98.9 FL (80.0-94.0); MEAN PLATELET VOLUME 8.6 FL (7.4-10.4); PLATELET COUNT 224 /CUMM (130-400); RBC DISTRIBUTION WIDTH 14.3 % (11.5-14.5); RED BLOOD CELL CT 4.15 /CUMM (4.70-6.10); WHITE BLOOD CELL COUNT 12.1 /CUMM (4.8-10.8)
--- NOTE | 2018-01-19 11:29 | PN- Att Addend ---
Attending Addendum Attending Brief Note 72-year-old male with past medical history significant for MS and currently on methotrexate and baclofen has been admitted to the floor initially for syncope in the setting of A. 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 Patient initially was on Eliquis which was then transitioned over to IV heparin for pacemaker placement but currently off of anticoagulation given chest tube placement. Patient was seen and examined on the bedside and the plan of care discussed thoroughly with the patient and his ex . Patient will continue to have the thoracic tube over the weekend and restarting his Eliquis will be discussed with the cloth folder hand. Last chest x-rays showed chest tube in place with no appreciable residual pneumothorax with some mild left basilar opacity that could be atelectasis/consolidation. We will follow further cardiology recommendations.
--- NOTE | 2018-01-19 12:11 | PN- Cardiology ---
Subjective Subjective: Resting comfortably today with no complaints. Objective Vital Signs and I&Os Vital Signs Date Time Temp Pulse Resp B/P B/P Pulse O2 O2 Flow FiO2 Mean Ox Delivery Rate 01/19 903 100 140/80 01/19 09 100 140/80 01/19 09 100 140/80 01/19 0800 98 Nasal 4.0L Cannula 01/19 06 98.1 104 20 142/92 97 Nasal 4.0L Cannula 01/189 97.8 102 24 148/90 92 Nasal 4.0L Cannula 01/18 2006 4.0 01/18 1444 98.3 88 20 116/76 96 Nasal 4.0L Cannula Intake & Output 01/19 1600 01/19 0800 01/19 0000 01/18 1600 01/18 0801/18 0000 Intake Total 950 600 400 250 Output Total Balance 950 600 400 250 Intake, Oral 950 600 400 250 Number 1 Bowel Movements Patient 173 lb Weight Physical Exam: General: no apparent distress. Alert. On nasal cannula. Eyes: No obvious scleral icterus. HEENT: No jugular venous distention or abnormal jugular venous pulsations. Cardiovascular: Normal intensity S1/S2. Left-sided the pacemaker site with no swelling Respiratory: No rales or rhonchi, left-sided chest tube in place Abdomen: Soft, nontender with no guarding or rebound tenderness. Musculoskeletal: No clubbing or cyanosis noted Skin: Warm Neurologic: No gross focal deficits noted. Current Medications: Current Medications Sig/Victor M Start time Last Medication Dose Route Stop Time Status Admin Acetaminophen 650 MG .STK-MED ONE 01/18 1951 DC PO 01/18 1952 Acetaminophen 650 MG Q4P PRN 01/17 0930 AC 01/18 PO 2005 Amlodipine Besylate 10 MG DAILY 01/13 1000 AC 01/19 PO 901 Aspirin 81 MG DAILY 01/13 1000 AC 01/19 PO 09 Baclofen 20 MG TID 01/12 2200 AC 01/19 PO 09 Folic Acid 1 MG DAILY 01/13 1000 AC 01/19 PO 09 Furosemide 40 MG DAILY 01/13 1000 AC 01/19 PO 09 Losartan Potassium 100 MG DAILY 01/13 1000 AC 01/19 PO 0903 Methotrexate 12.5 MG QWED 01/15 0700 AC 01/15 PO 0636 Potassium Chloride 20 MEQ DAILY 01/13 1000 AC 01/19 PO 0902 Risperidone 0.5 MG Q6P PRN 01/15 1400 AC 01/19 PO 0903 Tamsulosin HCl 0.4 MG DAILY 01/13 1000 AC 01/19 PO 09 Trazodone HCl 12.5 MG AT BEDTIME 01/15 2200 AC 01/18 PO 2005 Results Last 48 Hrs of Labs/Mics: Laboratory Tests 01/19/18 0650: Anion Gap 7, Estimated GFR > 60, BUN/Creatinine Ratio 30.0 H, CBC w Diff NO MAN DIFF REQ, RBC 4.15 L, MCV 98.9 H, MCH 33.5 H, MCHC 33.9, RDW 14.3, MPV 8.6, Gran % 75.6 H, Lymphocytes % 9.7 L, Monocytes % 12.6 H, Eosinophils % 2.0, Basophils % 0.1, Absolute Granulocytes 9.1 H, Absolute Lymphocytes 1.2, Absolute Monocytes 1.5 H, Absolute Eosinophils 0.2, Absolute Basophils 0 01/18/18 0620: CBC w Diff NO MAN DIFF REQ, RBC 3.79 L, MCV 99.9 H, MCH 33.8 H, MCHC 33.8, RDW 14.7 H, MPV 8.6, Gran % 73.5, Lymphocytes % 11.1 L, Monocytes % 11.9 H, Eosinophils % 3.2, Basophils % 0.3, Absolute Granulocytes 7.7 H, Absolute Lymphocytes 1.2, Absolute Monocytes 1.2 H, Absolute Eosinophils 0.3, Absolute Basophils 0 01/17/18 1505: PT Cancelled, INR Cancelled Recent Imaging Studies: Telemetry tracings were personally reviewed show atrial fibrillation with some tachycardia CXR 01/18 Trace left apical pneumothorax in the presence of chest tube. Persistent opacity at the left lung base. Assessment/Plan Assessment/Plan 1. Atrial fibrillation 2. Status post permanent pacemaker, complicated by pneumothorax requiring chest tube 3. Hypertension 4. History of bioprosthetic aortic valve 5. History of CVA 6. Syncope Patient is resting comfortably and remained hemodynamically stable. As he has some tachycardia can start metoprolol 25 mg by mouth twice a day since he now has a functioning pacemaker. Chest tube management per CT surgery. Anticoagulation currently on hold. Gerald Rubio MD [facility] Continue telemetry? Yes
[2018-01-19 14:26] VITALS: BP 110/68
[2018-01-19 21:44] VITALS: BP 130/84
[2018-01-20 06:36] VITALS: BP 110/78
--- NOTE | 2018-01-20 07:53 | PN- Housestaff ---
Dominique ZUNIGA,Sukhdeep 01/20/18 0752: Subjective Follow-up For: Pneumothorax Atrial Fibrillation s/p PPM Subjective: Patient seen and examined. He is seen sitting upright in bed resting comfortably. He appearst to be in no acute distress. He reports feeling well and denies any new complaints. He denies any shortness of breath or chest pain despite still having the chest tube in place. Review of Systems Constitutional: Reports: see HPI. Objective Last 24 Hrs of Vital Signs/I&O Vital Signs Date Time Temp Pulse Resp B/P B/P Pulse O2 O2 Flow FiO2 Mean Ox Delivery Rate 01/20 0910 110/78 01/20 0909 82 110/78 01/20 0909 82 110/78 01/20 0909 110/78 01/20 0636 97.7 82 20 110/78 95 Nasal 1.0L Cannula 01/20 0000 Nasal 1.0L Cannula 01/19 2144 97.7 106 18 130/84 94 01/19 1702 98 01/19 1600 95 Nasal 1.0L Cannula 01/19 1426 98.3 110 20 110/68 94 Nasal 1.0L Cannula Intake & Output 01/20 1600 01/20 0800 01/20 0000 Intake Total 110 950 Output Total Balance 110 950 Intake, IV 10 Intake, Oral 100 950 Physical Exam General Appearance: Alert, Cooperative, No Acute Distress Other Physical Findings: GEN: thin, ill appearing elderly man in no acute distress HEENT: NCAT, PERRL, EOMI, anicteric sclera CARD: normal s1/s2; irregularly irregular, left sided chest tube in place PULM: CTA bilaterally ABD: Soft, NT, ND, BS+ NEURO: Awake and alert, CN II-XII grossly intact, right sided hemiparesis EXT: normal pulses, no edema Current Medications: Current Medications Sig/Victor M Start time Last Medication Dose Route Stop Time Status Admin Acetaminophen 650 MG Q4P PRN 01/17 0930 AC 01/18 PO 2005 Amlodipine Besylate 10 MG DAILY 01/13 1000 AC 01/20 PO 909 Aspirin 81 MG DAILY 01/13 1000 AC 01/20 PO 908 Baclofen 20 MG TID 01/12 2200 AC 01/20 PO 0843 Folic Acid 1 MG DAILY 01/13 1000 AC 01/20 PO 908 Furosemide 40 MG DAILY 01/13 1000 AC 01/20 PO 0909 Losartan Potassium 100 MG DAILY 01/13 1000 AC 01/20 PO 0909 Methotrexate 12.5 MG QWED 01/15 0700 AC 01/15 PO 0636 Metoprolol Tartrate 25 MG BID 01/19 1547 AC 01/20 PO 0909 Potassium Chloride 20 MEQ DAILY 01/13 1000 AC 01/20 PO 0909 Risperidone 0.5 MG Q6P PRN 01/15 1400 AC 01/19 PO 2133 Tamsulosin HCl 0.4 MG DAILY 01/13 1000 AC 01/20 PO 0909 Trazodone HCl 12.5 MG AT BEDTIME 01/15 2200 AC 01/19 PO 2040 Last 24 Hrs of Lab/Jesus Results Last 24 Hrs of Labs/Mics: Laboratory Tests 01/20/18 0624: Anion Gap 7, Estimated GFR > 60, BUN/Creatinine Ratio 27.5 H, CBC w Diff NO MAN DIFF REQ, RBC 3.64 L, MCV 100.0 H, MCH 33.6 H, MCHC 33.6, RDW 14.4, MPV 8.5, Gran % 67.9, Lymphocytes % 13.9 L, Monocytes % 14.2 H, Eosinophils % 3.5, Basophils % 0.5, Absolute Granulocytes 5.9, Absolute Lymphocytes 1.2, Absolute Monocytes 1.2 H, Absolute Eosinophils 0.3, Absolute Basophils 0 Assessment/Plan Assessment: 72 year old man with multiple medical problems significant for multiple CVAs and MS brought in by ambulance for decreased responsiveness. Patient remains rate controlled on telemetry overnight without any further episodes of agitation or rapid ventricular response. He is in good spirits and denies any complaints. Chest tube is normal appearing and is changed from low wall suction to water seal today. Repeat CXR to assess resolution of pneumothorax to obtained this after. Eliquis may be restarted afterwards per CT surgery. 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 Syncope and collapse Pain Ratin Pain Location: None Pain Goal: Remain pain free Pain Plan: See assessment Tomorrow's Labs & Rationales: None Consulting Request: Consulting Specialty: Cardiology Bernardo ZUNIGA,Marni 01/20/18 1430: Attending MD Review Statement Attending Statement Attending MD Statement: examined this patient, discuss w/resident/PA/WOOL HAT HYDRAULICKER, agreed w/resident/PA/WOOL HAT HYDRAULICKER, reviewed EMR data (avail), discussed with nursing, discussed with case mgmt, reviewed images Attending Assessment/Plan: Appreciate cardiothoracic surgery follow-up. Plan is to take out the chest tube today for the pneumothorax that was associated with pacemaker placement. Restart anticoagulation, he's also been started on beta radha for tachybradycardia syndrome now that he has a pacemaker in. The plan will be discharged likely to rehabilitation given complex medical issues that emerged during this hospitalization.
[2018-01-20 08:37] LABS: ABSOLUTE BASOPHIL COUNT 0 /CUMM (0.0-0.2); ABSOLUTE EOSINOPHIL COUNT 0.3 /CUMM (0.0-0.7); ABSOLUTE GRANULOCYTE CT 5.9 /CUMM (1.4-6.5); ABSOLUTE LYMPH COUNT 1.2 /CUMM (1.2-3.4); ABSOLUTE MONOCYTE COUNT 1.2 /CUMM (0.10-0.60); BASOPHIL % 0.5 % (0.0-2.0); EOSINOPHIL % 3.5 % (0-5); GRANULOCYTE % 67.9 % (42.2-75.2); HEMATOCRIT 36.4 % (42-52); MEAN CORPUSCULAR HGB 33.6 PG (27.0-31.0); MEAN CORPUSCULAR HGB CONC 33.6 G/DL (33.0-37.0); MEAN PLATELET VOLUME 8.5 FL (7.4-10.4); PLATELET COUNT 204 /CUMM (130-400); RBC DISTRIBUTION WIDTH 14.4 % (11.5-14.5); RED BLOOD CELL CT 3.64 /CUMM (4.70-6.10); WHITE BLOOD CELL COUNT 8.6 /CUMM (4.8-10.8)
--- NOTE | 2018-01-20 08:37 | PN- Thoracic Surgery ---
See Addendum Subjective Subjective: PT IN BED RESTING COMFORTABLY, NO COMPLAINTS OF PAIN. DENIES SOB OR CP. NO FEVERS Objective Vital Signs and I&Os Vital Signs Date Time Temp Pulse Resp B/P B/P Pulse O2 O2 Flow FiO2 Mean Ox Delivery Rate 01/20 0636 97.7 82 20 110/78 95 Nasal 1.0L Cannula 01/20 0000 Nasal 1.0L Cannula 01/19 2144 97.7 106 18 130/84 94 01/19 1702 98 01/19 1600 95 Nasal 1.0L Cannula 01/19 1426 98.3 110 20 110/68 94 Nasal 1.0L Cannula 01/19 0903 100 140/80 01/19 0903 100 140/80 01/19 0902 100 140/80 Intake & Output 01/20 1600 01/20 0800 01/20 0000 01/19 1600 01/19 0800 01/19 0000 Intake Total 110 950 600 950 Output Total Balance 110 950 600 950 Intake, IV 10 Intake, Oral 100 950 600 950 Physical Exam: GEN-NAD RESP-CLEAR BILATERALLY CARDIO-RRR. CHEST TUBE IN LEFT CHEST MID CLAVICULAR LINE. ON SUCTION, NO AIR LEAK. ABD-ND, SOFT, NT Assessment/Plan Assessment/Plan 72YO M SP PACER PLACEMENT COMPLICATED BY LEFT PNEUMOTHORAX. CHEST TUBE PLACED BY IR ON LCWS. CHEST TUBE TO WATER SEAL FU CXR ONE HOUR AFTER CHANGED TO WATER SEAL IF NO PNEUMO SHOWN ON CXR, THEN WILL PULL CHEST TUBE AND CAN RESTART ELIQUIS DISCUSSED WITH DR ROLLE AND HE AGREES WITH ABOVE Core Measures Venous Thromboembolism VTE Risk Factors Age>40 No Mechanical VTE Prophylaxis d/t N/A MechProphylax Ordered No VTE Pharm Prophylaxis d/t NA PharmProphylax ordered
--- NOTE | 2018-01-20 11:12 | Proc Note Cardiology ---
Cardiology Procedure Procedure Date: 01/16/18 Cardiology Procedure(s): Medtronic Dual Chamber MRI safe Permanent pacemaker Pre-Operative Diagnosis: tachy-cece syndrome Post-Operative Diagnosis: tachy- cece syndrome Estimated Blood Loss: scant Anesthesia: local monitored anesthesi, moderate sedation Procedure Findings: History: This patient is a 72 year old male with history of hypertension, TIA, DVT and and aortic valve replacement who has paroxysmal atrial fibrillation. Her heart rate has been difficult to control with evidence of tachy-cece syndrome. Procedure: This patient was prepped and draped in the usual sterile fashion after having obtained informed consent. He was administered 2 gm of Ancef as prophylaxis against infection. An incision was then made in the left subclavicular space where a pacemaker pocket was dissected out. The left subclavian vein was then accessed via the Seldinger techinique and a 7F sheath was placed in the vein. Two wires were placed and the sheath then removed and placed over a single wire with retention of the remaining wire for later use. The right ventricular lead was then placed in the right ventricular apex and pacing parameters were checked and confirmed to be good. We then removed the sheath and placed a second 7F sheath in the left subclavian vein and through this passed the lead to the right atrial appendage. Pacing parameters were again checked and confirmed to be within acceptable, or better, limits. The sheath was removed and the leads were sewn into place and the pacemaker was then placed in the pocket after attaching both leads. The pacemaker pocket was sutured closed with three layers of absorbable suture. The pacemaker was again tested and the patient was brought to recovery where a chest X-ray and 12 lead ECG were obtained. Pacemaker: Medtronic Advisa MRI safe Pacemaker Model # [id number] with serial # [id number] Atrial Lead: Model # 5076-52 Serial # [id number] Voltage: Current: 1.1mA Impedance: 665 Ohms P wave: 1.6mV Ventricular Lead: Model # 5076-58 Serial # [id number] Voltage: 0.5V Current: 3.5mA Impedance: 1000 Ohms R wave: 11.7 The patient tolerated this procedure well without complications immediately post -procedure.
[2018-01-20 14:09] VITALS: BP 100/64
--- NOTE | 2018-01-20 15:01 | RADIOLOGY REPORT ---
EXAMINATION: CR CHEST CLINICAL INFORMATION: Chest tube in place. Presumptive diagnosis of pneumothorax. COMPARISON: Multiple prior chest x-rays, most recent of which is dated 01/18/2018. TECHNIQUE: 2 views of the chest were obtained. FINDINGS: Lateral view is essentially nondiagnostic due to nonstandard positioning and low lung volumes and multiple overlap of structures. The patient is status post median sternotomy. Right atrial and right ventricular pacer leads are unchanged in position. Left-sided pleural catheter is unchanged, directed medially in the left mid lung. No definite pneumothorax is seen. There is volume loss in the left hemithorax with slight elevation of the left hemidiaphragm and patchy opacities in the left lung base, consistent with subsegmental atelectasis and/or pneumonia. The right lung is fully expanded and unremarkable. Degenerative changes as seen in the spine. Bony structures are otherwise grossly unremarkable. IMPRESSION: 1. No definite left-sided pneumothorax is seen status post putting the left pleural catheter on waterseal. 2. Persistent mild volume loss in the left hemithorax with elevation of the left hemidiaphragm and patchy parenchymal opacities in the left lung base, consistent with atelectasis and/or pneumonia. The appearance is similar to the prior exam.
--- NOTE | 2018-01-20 15:26 | Procedure ---
Minor Surgical Procedure Note Date of Procedure: 01/20/18 Procedure Note: CHEST TUBE REMOVAL Left anterior IR CT removed at bedside. CXR reviewed, no PTX. Pleurevac without AL. Procedure explained to patient. Dressing/securement device/suture removed. Tube removed without difficulty, tip intact. Occlusive dressing immediately placed. Patient tolerated well. Will check CXR in 2 hours to r/o recurrent PTX. If no PTX, stable from thoracic standpoint and may discharge/ restart eliquis per medicine.
--- NOTE | 2018-01-20 18:09 | PN- Cardiology ---
Subjective Subjective: No complaints and resting comfortably. Objective Vital Signs and I&Os Vital Signs Date Time Temp Pulse Resp B/P B/P Pulse O2 O2 Flow FiO2 Mean Ox Delivery Rate 01/20 1409 99.0 84 18 100/64 93 Room Air 01/20 1228 Nasal 1.0L Cannula 01/20 0910 110/78 01/20 0909 82 110/78 01/20 0909 82 110/78 01/20 0909 110/78 01/20 0636 97.7 82 20 110/78 95 Nasal 1.0L Cannula 01/20 0000 Nasal 1.0L Cannula 01/19 2144 97.7 106 18 130/84 94 Intake & Output 01/20 1600 01/20 0800 01/20 0000 01/19 1600 01/19 0800 01/19 0000 Intake Total 480 110 950 600 950 Output Total Balance 480 110 950 600 950 Intake, IV 10 Intake, Oral 480 100 950 600 950 Physical Exam: Well-developed, well-nourished elderly male stress. Vital signs: See above. HEENT: Normocephalic, atraumatic, EOMI, slightly jaundiced membranes. Neck: No JVD, no bruits. Lungs: Clear to auscultation bilaterally. Heart: S1, S2 with grade 2/6 systolic murmur best heard in the base. Abdomen: Soft, nontender, positive bowel sounds. Extremities: No edema. Chest tube dressing clean and dry. Current Medications: Current Medications Sig/Victor M Start time Last Medication Dose Route Stop Time Status Admin Acetaminophen 650 MG Q4P PRN 01/17 0930 AC 01/18 PO 2005 Amlodipine Besylate 10 MG DAILY 01/13 1000 AC 01/20 PO 09 Apixaban 2.5 MG BID 01/20 2200 AC PO Aspirin 81 MG DAILY 01/13 1000 AC 01/20 PO 09 Baclofen 20 MG TID 01/12 2200 AC 01/20 PO 1715 Folic Acid 1 MG DAILY 01/13 1000 AC 01/20 PO 09 Furosemide 40 MG DAILY 01/13 1000 AC 01/20 PO 0909 Losartan Potassium 100 MG DAILY 01/13 1000 AC 01/20 PO 0909 Methotrexate 12.5 MG QWED 01/15 0700 AC 01/15 PO 0636 Metoprolol Tartrate 25 MG BID 01/19 1547 AC 01/20 PO 0909 Potassium Chloride 20 MEQ DAILY 01/13 1000 AC 01/20 PO 0909 Risperidone 0.5 MG Q6P PRN 01/15 1400 AC 01/19 PO 2133 Tamsulosin HCl 0.4 MG DAILY 01/13 1000 AC 01/20 PO 09 Trazodone HCl 12.5 MG AT BEDTIME 01/15 2200 AC 01/19 PO 2040 Results Last 48 Hrs of Labs/Mics: Laboratory Tests 01/20/18 0624: Anion Gap 7, Estimated GFR > 60, BUN/Creatinine Ratio 27.5 H, CBC w Diff NO MAN DIFF REQ, RBC 3.64 L, MCV 100.0 H, MCH 33.6 H, MCHC 33.6, RDW 14.4, MPV 8.5, Gran % 67.9, Lymphocytes % 13.9 L, Monocytes % 14.2 H, Eosinophils % 3.5, Basophils % 0.5, Absolute Granulocytes 5.9, Absolute Lymphocytes 1.2, Absolute Monocytes 1.2 H, Absolute Eosinophils 0.3, Absolute Basophils 0 01/19/18 0650: Anion Gap 7, Estimated GFR > 60, BUN/Creatinine Ratio 30.0 H, CBC w Diff NO MAN DIFF REQ, RBC 4.15 L, MCV 98.9 H, MCH 33.5 H, MCHC 33.9, RDW 14.3, MPV 8.6, Gran % 75.6 H, Lymphocytes % 9.7 L, Monocytes % 12.6 H, Eosinophils % 2.0, Basophils % 0.1, Absolute Granulocytes 9.1 H, Absolute Lymphocytes 1.2, Absolute Monocytes 1.5 H, Absolute Eosinophils 0.2, Absolute Basophils 0 Recent Imaging Studies: CXR 01/20/2018: 1. No definite left-sided pneumothorax is seen status post putting the left pleural catheter on waterseal. 2. Persistent mild volume loss in the left hemithorax with elevation of the left hemidiaphragm and patchy parenchymal opacities in the left lung base, consistent with atelectasis and/or pneumonia. The appearance is similar to the prior exam. 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 occipital lobe stroke w/ "new" defecits that included transient confusion and a L homonymous hemianopsia, modestly elevated troponin I's felt 2/2 type II ME & a paroxysm of A-flutter for which he was adm (02/25-03/02/2016) and started on the factor X a inhibitor Eliquis ( apixaban), given his significantly elevated [id number] score who was last hospitalized here for an episode of unresponsiveness (05/26-05/27/2016) ultimately felt 2/2 bradycardic-induced syncope w/ d/c of beta radha ( labetalol) at that time, who again presents following a prolonged (over one half hour) episode of decreased responsiveness & ECG evidence of AF w/ a "controlled " ventricular response w/o medications that typically slow AV conduction. We had previously documented A-flutter with a ventricular response rates of approximately 100 bpm, sinus bradycardia while on beta radha therapy, and now atrial fibrillation with both "controlled" ventricular response rate w/o medications that typically slow AV conduction suggesting the presence of significant underlying conduction disease and now more rapid ventricular response rates. It was decided that Mr. Kwan would benefit from implantation of a permanent pacemaker and this recommendation was agreed upon by family members. The permanent dual-chamber pacemaker was successfully implanted on 01/16/2018, but was complicated by a pneumothorax which required placement of a chest tube by IR on 01/17/2018. Anticoagulation was restarted. Continue telemetry? Yes
[2018-01-20 22:09] VITALS: BP 120/82
--- NOTE | 2018-01-20 22:56 | RADIOLOGY REPORT ---
EXAMINATION: XR PORTABLE CHEST CLINICAL INFORMATION: Left-sided chest tube removed. Left pneumothorax. COMPARISON: Chest x-ray 01/20/2018 TECHNIQUE: Portable frontal view of the chest was obtained. 6:03 PM FINDINGS: Left chest tube has been removed. There is dense left lung base with silhouetting of diaphragm. This may be effusion, atelectasis or consolidation. There is no pneumothorax. The right lung is clear. Status post median sternotomy. Pacemaker lead in right atrium and right ventricle. IMPRESSION: Left chest tube is been removed. There is now a dense left lung base due to effusion, infiltrate or atelectasis. No pneumothorax.
[2018-01-21 06:59] VITALS: BP 130/80
--- NOTE | 2018-01-21 07:25 | PN- Housestaff ---
Sukhdeep Fox MD 01/21/18 0725: Subjective Follow-up For: Pneumothorax Atrial Fibrillation s/p PPM Tele-Events Since Last Visit: Afib HR 69 - 82 since 0000 Subjective: Patient seen and examined. He is seen sitting upright in his bed resting comfortably. He appears to be in no acute distress. He reports feeling well and denies any chest pain, shortness of breath, or signs of bleeding. He is eager to be dishcharged to short term rehab for physical therapy today. Review of Systems Constitutional: Reports: see HPI. Objective Last 24 Hrs of Vital Signs/I&O Vital Signs Date Time Temp Pulse Resp B/P B/P Pulse O2 O2 Flow FiO2 Mean Ox Delivery Rate 01/21 0814 89 122/80 01/21 0813 89 122/80 01/21 0813 89 122/80 01/21 0811 89 122/80 01/21 0659 98.4 114 20 130/80 93 Room Air 01/20 2209 98.1 90 18 120/82 93 Room Air 01/20 2132 91 120/82 01/20 1409 99.0 84 18 100/64 93 Room Air 01/20 1228 Nasal 1.0L Cannula Intake & Output 01/21 1600 01/21 0800 01/21 0000 Intake Total 110 480 Output Total Balance 110 480 Intake, IV 10 Intake, Oral 100 480 Physical Exam General Appearance: Alert, Cooperative, No Acute Distress Other Physical Findings: GEN: thin, ill appearing elderly man in no acute distress HEENT: NCAT, PERRL, EOMI, anicteric sclera CARD: normal s1/s2; irregularly irregular, left sided chest tube in place PULM: CTA bilaterally ABD: Soft, NT, ND, BS+ NEURO: Awake and alert, CN II-XII grossly intact, right sided hemiparesis EXT: normal pulses, no edema Current Medications: Current Medications Sig/Victor M Start time Last Medication Dose Route Stop Time Status Admin Acetaminophen 650 MG Q4P PRN 01/17 0930 AC 01/18 PO 2005 Amlodipine Besylate 10 MG DAILY 01/13 1000 AC 01/21 PO 08 Apixaban 2.5 MG BID 01/20 2200 AC 01/21 PO 08 Aspirin 81 MG DAILY 01/13 1000 AC 01/21 PO 08 Baclofen 20 MG TID 01/12 2200 AC 01/21 PO 0810 Folic Acid 1 MG DAILY 01/13 1000 AC 01/21 PO 0813 Furosemide 40 MG DAILY 01/13 1000 AC 01/21 PO 08 Losartan Potassium 100 MG DAILY 01/13 1000 AC 01/21 PO 08 Methotrexate 12.5 MG QWED 01/15 0700 AC 01/15 PO 0636 Metoprolol Tartrate 25 MG BID 01/19 1547 AC 01/21 PO 0813 Potassium Chloride 20 MEQ DAILY 01/13 1000 AC 01/21 PO 08 Risperidone 0.5 MG Q6P PRN 01/15 1400 AC 01/19 PO 2133 Tamsulosin HCl 0.4 MG DAILY 01/13 1000 AC 01/21 PO 0814 Trazodone HCl 12.5 MG AT BEDTIME 01/15 2200 AC 01/20 PO 2129 Last 24 Hrs of Lab/Jesus Results Last 24 Hrs of Labs/Mics: Laboratory Tests 01/21/1810: CBC w Diff NO MAN DIFF REQ, RBC 3.75 L, MCV 100.6 H, MCH 33.4 H, MCHC 33.2, RDW 14.4, MPV 8.5, Gran % 65.7, Lymphocytes % 15.1 L, Monocytes % 13.6 H, Eosinophils % 5.1 H, Basophils % 0.5, Absolute Granulocytes 5.9, Absolute Lymphocytes 1.3, Absolute Monocytes 1.2 H, Absolute Eosinophils 0.5, Absolute Basophils 0 Assessment/Plan Assessment: 72 year old man with multiple medical problems significant for multiple CVAs and MS brought in by ambulance for decreased responsiveness. Patient remains rate controlled with the addition of metoprolol on telemetry without any new events. He has no further episiodes of agitation and appears to be tolerating the trazodone well. Chest tube was removed yesterday and eliquis restarted uneventfully. Patient is to be discharged to short term rehab today. 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 Syncope and collapse Pain Ratin Pain Location: None Pain Goal: Remain pain free Pain Plan: See assessment Tomorrow's Labs & Rationales: None Consulting Request: Consulting Specialty: Cardiology Marni Chang MD 01/21/18 1322: Attending MD Review Statement Attending Statement Attending MD Statement: examined this patient, discuss w/resident/PA/ICE SKATING COACH, agreed w/resident/PA/ICE SKATING COACH, discussed with family, reviewed EMR data (avail), discussed with nursing, reviewed images Attending Assessment/Plan: Patient is doing well. The chest tube was taken out and the repeat chest x-ray shows some density but no pneumothorax. His Eliquis was restarted and his crit is stable. The plan is that he'll be for short-term rehabilitation with close outpatient follow-up including an outpatient chest x-ray in a few weeks to ensure radiographic resolution.
[2018-01-21 07:53] LABS: ABSOLUTE BASOPHIL COUNT 0 /CUMM (0.0-0.2); ABSOLUTE EOSINOPHIL COUNT 0.5 /CUMM (0.0-0.7); ABSOLUTE GRANULOCYTE CT 5.9 /CUMM (1.4-6.5); ABSOLUTE LYMPH COUNT 1.3 /CUMM (1.2-3.4); ABSOLUTE MONOCYTE COUNT 1.2 /CUMM (0.10-0.60); BASOPHIL % 0.5 % (0.0-2.0); EOSINOPHIL % 5.1 % (0-5); GRANULOCYTE % 65.7 % (42.2-75.2); HEMATOCRIT 37.7 % (42-52); MEAN CORPUSCULAR HGB 33.4 PG (27.0-31.0); MEAN CORPUSCULAR HGB CONC 33.2 G/DL (33.0-37.0); MEAN CORPUSCULAR VOLUME 100.6 FL (80.0-94.0); MEAN PLATELET VOLUME 8.5 FL (7.4-10.4); PLATELET COUNT 236 /CUMM (130-400); RBC DISTRIBUTION WIDTH 14.4 % (11.5-14.5); RED BLOOD CELL CT 3.75 /CUMM (4.70-6.10); WHITE BLOOD CELL COUNT 8.9 /CUMM (4.8-10.8)
[2018-01-21] MEDS ORDERED: METOPROLOL TART25 M1 PO (09:09)
[2018-01-21] MEDS ORDERED: TRAZODONE HCL50 M1 PO (09:26)
[2018-01-21 14:32] VITALS: BP 122/80
[2018-01-21 14:35] VITALS: BP 118/76
== END 2018-01-21 16:04 | DRG 243 ==
LOC: ERH 14:01 → 1NO 18:24 → ERHI 18:24 → ENRESERV 21:30 → ENTRNSPT 22:11 → 1NO 22:32 → CMPTRNSPT 22:41 → 1NO 01-13 07:52 → ENTRNSPT 01-16 15:59 → EDTRNSPT 01-16 16:03 → EDTRNSPTSTS 01-16 16:03 → CMPTRNSPT 01-16 16:29 → ENPENDDIS 01-21 09:35 → 1NO 01-21 16:04
PROVIDERS: Emergency Medicine; Internal Medicine; Internal Medicine Interventional Cardiology; Student in an Organized Health Care Education/Training Program
PROC: 02H63JZ Insertion of Pacemaker Lead into Right Atrium, Percutaneous Approach (ICD-10-PCS; principal; 2018-01-16)
PROC: 0JH606Z Insertion of Pacemaker, Dual Chamber into Chest Subcutaneous Tissue and Fascia, Open Approach (ICD-10-PCS; principal; 2018-01-16)
PROC: 02HK3JZ Insertion of Pacemaker Lead into Right Ventricle, Percutaneous Approach (ICD-10-PCS; principal; 2018-01-16)
PROC: 0W9B30Z Drainage of Left Pleural Cavity with Drainage Device, Percutaneous Approach (ICD-10-PCS; 2018-01-17)
PROC: 0WPBX3Z Removal of Infusion Device from Left Pleural Cavity, External Approach (ICD-10-PCS; 2018-01-20)
DX: I49.5 Sick sinus syndrome (principal); I48.92 Unspecified atrial flutter; G35 Multiple sclerosis; I69.351 Hemiplegia and hemiparesis following cerebral infarction affecting right dominant side; J95.811 Postprocedural pneumothorax; I50.32 Chronic diastolic (congestive) heart failure; I11.0 Hypertensive heart disease with heart failure; R09.02 Hypoxemia; Z66 Do not resuscitate; E78.5 Hyperlipidemia, unspecified; N40.0 Benign prostatic hyperplasia without lower urinary tract symptoms; Z79.01 Long term (current) use of anticoagulants; Y83.8 Other surgical procedures as the cause of abnormal reaction of the patient, or of later complication, without mention of misadventure at the time of the procedure; Z99.3 Dependence on wheelchair; Z86.718 Personal history of other venous thrombosis and embolism; Z95.3 Presence of xenogenic heart valve; Z87.891 Personal history of nicotine dependence
CPT/HCPCS: 1NP; 1NSP; 36415; 36592; 71045; 71046; 77012; 81003; 82436; 87040; 87086; 87804; 87804-59; 93005; 93010; 93306; C1785; C1898; J0690; J1644; J3490; J8610; Q2036